=== PATIENT | female | born 1980 | race Caucasian/White ===

== ENCOUNTER → 2022-07-09 12:36 | Outpatient (CLI) | payer OTHER, SELFPAY ==
--- NOTE | ~2022-07-09 | MR_ITS ---
MRI of the right lower extremity CLINICAL HISTORY: Soft tissue mass distal right leg TECHNIQUE: Axial T1 weighted, T1 fat-sat, STIR images, coronal T1-weighted and STIR images, and sagit ankita T1-weighted and STIR images were performed. Sagittal proton-density images, and axial and coronal proton-density fat-sat images were performed at the ankle region. Following intravenous administrati on of 15 cc MultiHance gadolinium, T1-weighted fat-sat imaging was performed in the axial, coronal, a nd sagittal planes. FINDINGS: Bone marrow signals are unremarkable. No fracture, bone marrow edema, or periosteal reactio n. No evidence for osteomyelitis. Visualized joint spaces are grossly intact. Visualized musculature demonstrates normal signal intensity. No muscle atrophy or edema identified. V isualized tendons are intact. There is a 1.0 x 0.8 x 1.3 cm cystic mass, without postcontrast enhancement, along the anterior isai n of the distal tibiofibular syndesmotic region, approximately 4 cm proximal to the distal tip of the lateral malleolus (series 12 image 16, series 13 image 11). This is most compatible with a ganglion cyst. No other soft tissue mass or fluid collection seen. IMPRESSION: 1.0 x 0.8 x 1.3 cm ganglion cyst along the anterior margin of the distal tibiofibular syndesmotic reg ion, as detailed above. Reviewed, dictated and finalized at [facility]. NGUAL RESEARCH INTERVIEWER IMPRESSION: 1.0 x 0.8 x 1.3 cm ganglion cyst along the anterior margin of the distal tibiof ibular syndesmotic region, as detailed above.
== END ==
PROVIDERS: PCP Family Medicine; Visit Provider Podiatrist Foot & Ankle Surgery
DX: R22.41 Localized swelling, mass and lump, right lower limb (principal); M67.461 Ganglion, right knee
CPT/HCPCS: 73720; A9577

== ENCOUNTER → 2022-10-26 10:57 | Outpatient (CLI) | payer OTHER, SELFPAY ==
--- NOTE | ~2022-10-26 | XR_ITS ---
AP view of the pelvis and AP and lateral views of the left hip Clinical history: Pain Findings: No acute fracture or dislocation is seen. Osseous alignment is anatomic. Bilateral hip and SI joint spaces are preserved. Soft tissues are unremarkable. Impression: No significant abnormality is seen. Reviewed, dictated and finalized at [facility]. Impression: No significant abnormality is seen.
== END ==
PROVIDERS: PCP Family Medicine; Visit Provider Nurse Practitioner Family
DX: M25.552 Pain in left hip (principal)
CPT/HCPCS: 73502

== ENCOUNTER 2024-07-31 00:07 | Day surgery (SDC) | payer OTHER, SELFPAY ==
[2024-07-21 15:43] VITALS: BMI 27.4
--- NOTE | 2024-07-21 16:11 | PC.NURSE ---
Report to the Outpatient Waiting Room, entrance under the green pavilion located off [facility], at 0730 on 07-31-24. Planned Procedure Time: 0930.? Time changes happen often and if your time is changed the preop area will call you the afternoon before. - You and your visitor will be asked to self-screen and do not enter if you have any COVID symptoms. Please call surgeon if you need to reschedule. - A mask is optional within the hospital at this time. Patients may have clear liquids (water, carbonated beverages, clear teas, apple juice) until 3 hours prior to surgery with a maximum of 20 ounces. 0630 - No food from midnight until time of surgery and no smoking, or chewing tobacco (or any form of nicotine). No chewing gum, candy or mints. - Infants may have breast milk until 4 hours before surgery, formula 6 hours prior to surgery. - Children will be allowed to drink immediately following surgery.? If applicable, please bring a bottle or sippy cup to assist with drinking. Juice, water, soda, and popsicles are readily available.? For infants on formula, please bring formula the day of surgery.? Pacifiers are allowed. Take only the following medications with a SIP of water on the morning of surgery: Tylenol if needed Bring inhaler to hospital DOS DO NOT STOP ANY OF YOUR OTHER PRESCRIPTION MEDICATIONS PRIOR TO SURGERY EXCEPT THE FOLLOWING Hold all vitamins and supplements for 3 days per anesthesiologist. Medications to discontinue per physician: Vitamins and supplements Date to take last dose: 07-28-24 Please no make-up, nail danish, hairspray, perfume, deodorant, or body powder the day of surgery.? No jewelry (including any body piercings) or valuables the day of surgery, leave them at home.? Please take a shower or bath the night before, or the morning of, surgery with an antibacterial soap.? Wear comfortable, loose fitting clothing.? Children are encouraged to wear pajamas. - Jewelry must be removed prior to entering the operating room.? Rings and piercings that are not removed may be cut off. - The hospital will not accept responsibility for valuables.? - Please leave all valuables, including medications, at home the day of surgery. If you are going home after surgery, a licensed mule driver must drive you home.? - NO public transportation without another adult if you receive anesthesia. - We recommend that an adult stay with you for 24 hours following discharge. - We also recommend that you do not drive, make important decision, drink alcoholic beverages, or take any drugs that were not prescribed by your health care provider for at least 24 hours after your discharge time. For Pediatric surgeries, we recommend two adults accompany the child home. Follow any additional instructions given to you from your surgeon. Telephone instructions given to Vera Escobedo and asked if any additional questions and then verbalized understanding. Patient advised to call surgeon office or pre surgery nurse liaison [phone] if any additional questions.
--- OUTSIDE RECORDS SUMMARY | 2024-07-31 00:10 | XMS_ITS ---
Author Organization [facility] Address [address] [facility] [address] [place] [address] Care Team Providers Care Service Desk Agent Name Role Phone Travis ROONEY, Armando Primary Care Provider Shekhar Beach Unavailable [phone] REASON FOR VISIT Nausea and Vomiting 5ft6 173 Encounters Encounter Location Date Provider Diagnosis [facility] [address] [place] [address] 02/12/2024 Shekhar Anguiano Plan Of Treatment No Information Progress Notes * Vera GALEAS LDOB: 1980 (43 yo F)Acc No.[id number]:02/12/2024 Patient: Vera PEARCE Provider: Elvin Anguiano D.O. :1980 A ge:43 Y S ex:Female Date:02/12/2024 Address:[address] [facility] Pcp:Armando Robles MD Subjective: * Chief Complaints: * 1 . Nausea and Vomiting 5ft6 173. * Medical History: Objective: * Vitals: Assessment: Plan: * Treatment: * Images: * Electronic signature of Vicente Anguiano DO on 07/31/2024 at 12:10 AM CDT Sign off status: Pending * Provider: Elvin Anguiano D.O. Date: 0 02/12/2024 Generated for Veronica torres/Dong/Trinityitting on: 0 07/31/2024 12:10 AM CDT
--- OUTSIDE RECORDS SUMMARY | 2024-07-31 00:10 | XMS_ITS | Encounter Summary ---
Author Organization [facility] Address 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 MEDICATIONS: Medication list current. CHIEF COMPLAINT Seen as a new patient to get established with the practice. has arthritis pain and stiffness with fatigue -has had positive ra factor in the past - HISTORY: 26 yo with complicated pmh, including asthma / anemia / IBS, Kidney Stones, Fibromyalgia, Mitral Valve prolapse. The patient wasn't too pleased with previous primary care physician. Has seenthe previous doctor for about 15 years. 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 The patient is seeking additional primary care because she was made uncomfortable by her previous doctor. HISTORY: 729.1-FIBROMYALGIA The patient's myalgia remains stable. Currently the patient is off all medication. No recent laboratory work done. the patient has also been having a lot of weakness. doesn't have much strength in her arms. joints will lock up at times, such as when she's having sexual activity. Washing the plate sometimes makes her hands throb and ache and her wrists will freeze up. Taking tramadol for now, 50 mg as needed. Has taken Elavil in the past, which no longer works. The patient is interested in learning about lyrica, and she worries about the effects of being on those medications. 477.9-RHINITIS ALLERGIC UNSPECIFIED The allergic rhinitis symptoms are stable. The patient denies sneezing, rhinorrhea, coryza, and watery eyes. Currently the patient is off all medication. 493.90-ASTHMA UNSPECIFIED The asthma is stable. The patient denies shortness of breath, cough, wheezing and reduced exercise tolerance. Currently the patient is off all medication. 424.0-MITRAL VALVE PROLAPSE occasional chest pain and palpitations, but these are stable. CURRENT MEDICATION LIST: ADVAIR DISKUS INHALATION MISCELLANEOUS 250-50 MCG/DOSE, bid SINGULAIR ORAL TABLET 10 MG, qd ZYRTEC ORAL TABLET 10 MG, qd NASONEX NASAL SUSPENSION 50 MCG/ACT, once daily TRAMADOL HCL ORAL TABLET 50 MG, up to three daily as needed BENTYL ORAL SYRUP 10 MG/5ML, qd ALBUTEROL SULFATE ORAL TABLET 4 MG, qd prn ROS: Has Fibromyalgia / Weakness, Sinus congestion, occasional chest pain and palpitations, IBS symptoms GENERAL: Normal activity and energy level, no change in appetite. No major weight gain or loss. No malaise, chills, fever, diaphoresis.. ENT: No hearing loss, epistaxis, hoarseness or dysphagia. No sinus congestion.. ENDOCRINE: No heat or cold intolerance, no excessive thirst.. CARDIAC: No chest pain, palpitations, orthopnea, dyspnea on exertion, or paroxysmal nocturnal dyspnea.. RESPIRATORY: No dyspnea, cough, hemoptysis or wheezing.. : No frequency, urgency, hematuria or dysuria.. GI: No abdominal pain, nausea, vomiting, diarrhea, constipation, melena, or hematochezia.. PAST MEDICAL HISTORY: Asthma / Allergies / Sinus Surgery, Endometriosis surgery x 2, Pneumonia requiring hospitalization. FAMILY HISTORY: Father with HTN, DM, CAD. Mother has MVP, Thyroid problems. Dementia also runs in the family. SOCIAL HISTORY: MARITAL HISTORY: detention relationship 1 year. 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 TOBACCO USE: Has no significant smoking history. ALCOHOL: Does not give any significant history of alcohol usage. PHYSICAL EXAMINATION: CONSTITUTIONAL: GENERAL APPEARANCE: Healthy appearing patient in no distress. NECK/THYROID: Trachea midline. No thyroid enlargement, tenderness, or mass. No supraclavicular or cervical adenopathy. RESPIRATORY: Clear to auscultation and percussion. Normal respiratory effort. CARDIOVASCULAR: CARDIAC: Regular rhythm. No murmurs, rubs, or gallops. ARTERIAL: No aortic bruits. EDEMA/VARICOSITIES OF EXTREMITIES: No edema or varicosities. GASTROINTESTINAL: ABDOMEN: Soft, non-tender, without masses. Bowel sounds active. LIVER/SPLEEN/KIDNEY: No hepatosplenomegaly, tenderness or nodularity. Kidneys not palpable. ASSESSMENT/PLAN: 729.1-FIBROMYALGIA ASSESSMENT: The patient's myalgia stable. Will not change medication, continue to monitor for complications. Will check laboratory. MEDICATIONS: LYRICA ORAL CAPSULE CONVENTIONAL 75 MG, One PO BID (start one po qday x 1 week), 60 Dispensed, 3 Fills, status: NEW PRESCRIPTION, 06/10/2007. 477.9-RHINITIS ALLERGIC UNSPECIFIED ASSESSMENT: The patient's allergic rhinitis continues to remain stable. Will not change medication,continue to monitor for complications. No laboratory work is necessary at this time. 493.90-ASTHMA UNSPECIFIED ASSESSMENT: The asthma has improved. The patient denies shortness of breath, cough, wheezing and reduced exercise tolerance. Currently the patient is off all medication. No recent laboratory work done. PATIENT INSTRUCTIONS. 424.0-MITRAL VALVE PROLAPSE ASSESSMENT: stable for now. occasional chest pain. V70.0-ROUTINE GENERAL MEDICAL EXAMINATION V77.91-SCREENING FOR LIPID DISORDERS ASSESSMENT: LAB ORDERS: Order number: [id number] Test Ordered: HEPATIC FUNCTION PANEL 1293 Order number: [id number] Test Ordered: LIPID PANEL 1078 HEALTH MAINTENANCE: DISCUSSED SMOKING: none. LAST TD: 2004 SUBSTANCE ABUSE DISCUSSED: none. INJURY PREVENTION DISCUSSED: yes. DIET AND EXERCISE DISCUSSED: yes. ( arobic) DIABETIC EYE EXAM: 2006. Electronically Signed by: Shekhar Victoria MD on Sunday, June 10, 2007 documented in this encounter Plan of Treatment Not on file documented as of this encounter Visit Diagnoses Not on filedocumented in this encounter Care Teams Composite Laminator Relationship Specialty Start Date End Date Shekhar Victoria MD PCP - General 10/15/07 06/12/18 documented as of this encounter
--- OUTSIDE RECORDS SUMMARY | 2024-07-31 00:10 | XMS_ITS | Encounter Summary ---
Author Organization [employer] Address 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
--- OUTSIDE RECORDS SUMMARY | 2024-07-31 00:10 | XMS_ITS | Encounter Summary ---
Author Organization Address [address] [place] [address] Care Team Providers Care Loss Prevention Research Engineer Name Role Phone Shekhar Victoria MD Primary Care Provider [phone] Encounter Details Date Type Department Care Team (Late st Contact Info) Description 06/10/2007 Outpatient Historical [facility] Internal Medicine - [place] [address] [place] [address] [place] [address] [facility] [address] [place] [address] Social History Tobacco Use Types Packs/Day Years Used Date Smoking Tobacco: Never Assessed Comments Unknown Sex and Gender Information Value Date Recorded Sex Assigned at Not on file 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
--- OUTSIDE RECORDS SUMMARY | 2024-07-31 00:10 | XMS_ITS | Clinical Summary ---
Author Organization [facility] Address [address] [place] [address] Care Team Providers Care Neonatal Doctor Name Role Phone Unavailable Primary Care Provider Unavailabl e Immunizations Immunization Administration Dates Next Due Covid-19, Mrna, Lnp-s, Pf, 30 Mcg/0.3 Ml Dose (Bernice ricketts) 02/18/2021 Social History Tobacco Use Types Packs/Day Years Used Date Smoking Tobacco: Never Assessed Comments Unknown Sex and Gender Information Value Date Recorded Sex Assigned at Not on file Legal Sex Female 11:52 AM CDT Gender Identity Not on file Sexual Orientation Not on file Plan of Treatment Health Maintenance Due Date Last Done Comments Hepatitis C Virus (HCV) Screening 1978 Mammogram 1978 TdaP Immunization 1978 Hepatitis B Immunization (1 of 3 - 19+ 3-dose series) 1997 Pap Smear 10/25/1999 Cervical Cancer Screening (CCS) 2008 HPV/Cotest 2008 Discussion re Starting/Frequency of Mammograms 2018 Colonoscopy 10/25/2023 Colorectal Cancer Screening 10/25/2023 Influenza Immunization (#1) 2024 SARS-COV-2 Immunization (2023- season) 2024 02/18/2021, 07/30/2020, 07/09/2020 Respiratory Syncytial Virus (RSV) Immunization (Adult) (1 - 1-dose 75+ series) 2053 Meningococcal Immunization (ACWY) Aged Out No longer eligible b ased on patient's age to complete this topic Pneumococcal Immunization Combined Aged Out No longer eligible b ased on patient's age to complete this topic Rotavirus Immunization Aged Out No lo nger eligible based on patient's age to complete this topic
--- OUTSIDE RECORDS SUMMARY | 2024-07-31 00:10 | XMS_ITS | Encounter Summary ---
Author Organization [facility] Address [address] [place] [address] Care Team Providers Care Government Clerk Name Role Phone Shekhar Victoria MD Primary Care Provider [phone] Encounter Details Date Type Department Care Team (Late st Contact Info) Description 06/10/2007 Outpatient Historical [facility] Internal Medicine - [place] [address] [place] [address] [place] [address] [facility] [address] [place] [address] Social History Tobacco Use Types Packs/Day Years Used Date Smoking Tobacco: Never Assessed Comments Unknown Sex and Gender Information Value Date Recorded Sex Assigned at Not on file 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
--- OUTSIDE RECORDS SUMMARY | 2024-07-31 00:10 | XMS_ITS | Encounter Summary ---
Author Organization [employer] Address 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
--- OUTSIDE RECORDS SUMMARY | 2024-07-31 00:10 | XMS_ITS | Patient Health Record ---
Author Organization [facility] [employer] [facility] Address [address] [place], [place] [address] Care Team Providers Care Alumni Secretary Name Role Phone Saniya Doe Unavailable [phone] ALLERGIES Allergen (clinical drug ingredient) Drug/Non Drug Allergy documented on EMR Reaction Allergy Type Onset Date Status Darvocet A500 Unknown Drug Allergy Act millie Percocet 7.5/325 Unknown Drug Allergy Active sulfa (uncoded) Unknown Allergy Acti ve REASON FOR REFERRAL No Information MEDICATIONS Medication SIG (Take, Route, Frequency, Duration) Notes Start Date End Date Status Singulair 10 mg 1 tab(s) orally once a day (in the evening) Active ZyrTEC Active Nasonex 50 mcg/inh 2 spray(s) intranasa lly once a day Active Advair Diskus 250 mcg-50 mcg 1 puff(s) inhaled 2 times a day Active Z- MIN 250 MG DIRECTED ORALLY D AILY for 5DAY 11/25/2017 Not-Taking traMADol 50 mg 1 tab orally tid prn Active Lyrica 150 mg 1 cap(s) orally once a day for 90 days Active albuterol 5 mg/mL 1 mL inhaled every 6 hours Active Paxil 30 mg 1 tab(s) orally once a day Active SOCIAL HISTORY Tobacco Use: Social History Observation Description Date Details (start date - stop date) Never Smoker NA - NA Sex Assigned At : Social History Observation Description Sex Assigned At Unknown Tobacco Use: Question Answer Notes Smoking Status nonsmoker PROBLEMS Problem Type ICD Code Onset Dates Problem Status W/U Status Risk SNOMED Code Notes Problem Other residential (current) drug therapy (Z79.899) Active confirmed 324880639 Problem Fibromyalgia (M79.7) Active confirmed 05043260 Problem Myalgia (M79.1) Active confirmed 137857 01 Problem Hematuria (R31.9) Active confirmed 3443 6003 Problem Fatigue (R53.83) Active confirmed 50420 001 Problem Degenerative disc disease, thoracic (M51.34) Active confirmed 72919758 Problem Paresthesia (R20.2) Active confirmed 49750062 Problem Small fiber neuropathy (G62.9) Active confirmed 986925611 PLAN OF TREATMENT Pending Test Test Name Order Date PT Evaluate and treat 03/22/2017 Insurance Providers Payer Name Payer Address Payer Phone Subscriber Number Group Number Insured Name Patient Relationship to Insured Coverage Start Date Coverage End Date [employer] PPO - NR [id number] [place] [address] [id number] Emilee Escobedo Spouse - patient is the spouse of the insured 8 MEDICAL (GENERAL) HISTORY Medical History History ICD Code bruises easily change in moles migraine headache sinus problems dizziness swollen glands in neck anemia chest pain high blood pressure asthma heart murmur irritable bowel syndrome ulcers Kidney stones anxiety depression OCD Surgical History Surgery Date(Month/Year) Sinus surgery 1996 endometriosis lap wisdom tooth 2007 labial cyst extraction 2007 myomectomy (ovarian mass) 2011
--- OUTSIDE RECORDS SUMMARY | 2024-07-31 00:10 | XMS_ITS | Encounter Summary ---
Author Organization [facility] Address [address] [place] [address] Care Team Providers Care Analytics Associate Name Role Phone Shekhar Victoria MD Primary Care Provider [phone] Encounter Details Date Type Department Care Team (Latest Contact Info) Description 07/02/2007 Outpatient Historical [facility] Internal Medicine - [place] [address] [place] [address] [place] [address] [facility] [address] [place] [address] Unspecified Myalgia and Myositis Social History Tobacco Use Types Packs/Day Years Used Date Smoking Tobacco: Never Assessed Comments Unknown Sex and Gender Information Value Date Recorded Sex Assigned at Not on file Legal Sex Female 4:51 AM OPERATIONS OFFICER AFLOAT Gender Identity Not on file Sexual Orientation Not on file documented as of this encounter Plan of Treatment Not on file documented as of this encounter Procedures Procedure Name Priority Date/Time Associated Diagnosis Comments LIPID PANEL Routine 07/02/2007 4:03 PM OPERATIONS OFFICER AFLOAT COMPREHENSIVE METABOLIC PANEL Routine 07/02/2007 4:03 PM OPERATIONS OFFICER AFLOAT documented in this encounter Results * (ABNORMAL) COMPREHENSIVE METABOLIC PANEL (07/02/2007 4:03 PM OPERATIONS OFFICER AFLOAT) TOTAL PROTEIN 8.2 6.3 - 8.6 g/dL [facility] CO2 23 22 - 30 mmol/L [facility] GLUCOSE 59(L) 65 - 99 mg/dL [facility] AST 19 12 - 32 U/L [facility] BUN 12 6 - 20 mg/dL [facility] CALCIUM 8.8 8.4 - 10.2 mg/dL [facility] POTASSIUM 3.7 3.5 - 4.9 mmol/L [facility] ALBUMIN 4.5 3.4 - 4.8 g/dL [facility] CREATININE 0.67 0.51 - 0.95 mg/dL [facility] SODIUM 140 135 - 145 mmol/L [facility] ALT 7 0 - 31 U/L [facility] CHLORIDE 102 96 - 108 mmol/L [facility] ALKALINE PHOSPHATASE 99 35 - 104 U/L [facility] BILIRUBIN TOTAL 0.2 0.2 - 1.0 mg/dL [facility] GFR, >60 >=60 mL/min/1.7 sq meter [facility] GFR >60 >=60 mL/min/1.7 sq meter [facility] Comment: ansiEstimated GFR rate interpretative information for both Americans and non- Americans is available on the [facility] Intranet at: http://[facility] samaritanKingdom Scene Endeavorsballad health/unity/sjmmclab.nsf Select: Lab Policies and Procedures Select: Reference Ranges - GFR Blood specimen (specimen) 07/02/2007 4:03 PM OPERATIONS OFFICER AFLOAT 07/02/2007 4:03 PM OPERATIONS OFFICER AFLOAT Shekhar Victoria MD CHEMISTRY ORDERABLES Edited [facility] [address] [place] [address] * (ABNORMAL) LIPID PANEL (07/02/2007 4:03 PM OPERATIONS OFFICER AFLOAT) TRIGLYCERIDE 56 10 - 149 mg/dL [facility] HDL 71(H) 40 - 59 mg/dL [facility] CHOLESTEROL 167 100 - 199 mg/dL [facility] CHOL/HDL RATIO 2.4 2.0 - 5.0 N [facility] LDL CALCULATED 85 <=99 mg/dL [facility] LIPID PANEL COMMENT See Below N [facility] Comment: The adult ATP and pediatric NCEP classifications for lipids are available on the [facility] Intranet at: http://house of the good samaritanFTRANSet/WalkHub/sjmmclab.nsf Select: Lab Policies and Procedures,Current Select: Lipid Panel Interpretation Blood specimen (specimen) 07/02/2007 4:03 PM OPERATIONS OFFICER AFLOAT 07/02/2007 4:03 PM OPERATIONS OFFICER AFLOAT Shekhar Victoria MD CHEMISTRY ORDERABLES Edited [facility] [address] [facility] [place] [address] documented in this encounter Visit Diagnoses Diagnosis Myalgia and myositis, unspecified Mylagia and myositis, unspecified documented in this encounter Care Teams Analytics Associate Relationship Specialty Start Date End Date Shekhar Victoria MD PCP - General 10/15/07 06/12/18 documented as of this encounter
--- OUTSIDE RECORDS SUMMARY | 2024-07-31 00:10 | XMS_ITS ---
Author Organization [employer] Address [address] [place] [address] Care Team Providers Care Rib Bender Name Role Phone Travis ROONEY, Armando Primary Care Provider Shekhar Beach Unavailable [phone] REASON FOR VISIT Screen/Phxcp 5ft6 173 Encounters Encounter Location Date Provider Diagnosis [facility] [address] [place] [address] 03/02/2024 Shekhar Anguiano Colon cancer screeni ng Z12.11 and History of adenomatous polyp of colon Z86.0101 Assessments Encounter Date Diagnosis (ICD Code) Assessment Notes Treatment Notes Treatment Clinical Notes Section Notes 03/02/2024 Colon cancer screening (ICD-10 - Z12.11) 03/02/2024 History of adenomatous polyp of colon (ICD-10 - Z86.0101) Plan Of Treatment Next Appt Details Follow Up: * Colonoscopy 7 y ear, Reason: Progress Notes * Vera GALEAS LDOB: 1980 (43 yo F)Acc No.[id number]:03/02/2024 Patient: Pelon Vera Amezquita Provider: Elvin Anguiano D.O. :1980 A ge:43 Y S ex:Female Date:03/02/2024 [address] [facility] [place] Pcp:Armando Robles MD Subjective: * Chief Complaints: * S creen/Phxcp 5ft6 173 * Medical History: * Surgical History: * Hospitalization/Major Diagno stic Procedure: * Medications: Objective: Assessment: * Assessment: 1. C olon cancer screening - Z12.11 (Primary) 2 . H istory of adenomatous polyp of colon - Z86.0101 Plan: * Treatment: * Procedure Codes: G 0105 COLOREC CANCR SCR; COLNSCPY HI RISK * Follow Up: * Colonoscopy 7 year * Images: * Sign off status: Completed true * Provider: Elvin Anguiano D.O. Date: 1 Generated for Veronica torres/Dong/Vale on: 0 07/31/2024 12:10 AM CDT
--- OUTSIDE RECORDS SUMMARY | 2024-07-31 00:10 | XMS_ITS | Encounter Summary ---
Author Organization [facility] Address [address] [place] [address] Care Team Providers Care Chemist Enzymes Name Role Phone Shekhar Victoria MD Primary Care Provider [phone] Encounter Details Date Type Department Care Team (Late st Contact Info) Description 07/02/2007 Outpatient Historical [facility] Internal Medicine - [place] [address] [place] [address] Other, [place] NO ADDRESS ON FILE Social History Tobacco Use Types Packs/Day Years Used Date Smoking Tobacco: Never Assessed Comments Unknown Sex and Gender Information Value Date Recorded Sex Assigned at Not on file Legal Sex Female 4:51 AM DIETETIC TECH Gender Identity Not on file Sexual Orientation Not on file documented as of this encounter Plan of Treatment Not on file documented as of this encounter Visit Diagnoses Not on filedocumented in this encounter Care Teams Chemist Enzymes Relationship Specialty Start Date End Date Shekhar Victoria MD PCP - General 10/15/07 06/12/18 documented as of this encounter
--- OUTSIDE RECORDS SUMMARY | 2024-07-31 00:10 | XMS_ITS | Encounter Summary ---
Author Organization [facility] Address [address] [place] [address] Care Team Providers Care Music Specialist Name Role Phone Shekhar Victoria MD Primary Care Provider [phone] Encounter Details Date Type Department Care Team (Late st Contact Info) Description 06/10/2007 Outpatient Historical [facility] Internal Medicine - [place] [address] [place] [address] [place] [address] [facility] [address] [place] [address] Social History Tobacco Use Types Packs/Day Years Used Date Smoking Tobacco: Never Assessed Comments Unknown Sex and Gender Information Value Date Recorded Sex Assigned at Not on file Legal Sex Female 4:51 AM FIELD SEISMOLOGIST Gender Identity Not on file Sexual Orientation Not on file documented as of this encounter Plan of Treatment Not on file documented as of this encounter Visit Diagnoses Not on filedocumented in this encounter Care Teams Music Specialist Relationship Specialty Start Date End Date Shekhar Victoria MD PCP - General 10/15/07 06/12/18 documented as of this encounter
--- OUTSIDE RECORDS SUMMARY | 2024-07-31 00:10 | XMS_ITS | Encounter Summary ---
Author Organization [facility] Address [address] [place] [address] Care Team Providers Care Easement Man Name Role Phone Shekhar Victoria MD Primary Care Provider [phone] Encounter Details Date Type Department Care Team (Late st Contact Info) Description 06/02/2007 Outpatient Historical [facility] Internal Medicine - [place] [address] [place] [address] [place] [address] [facility] [address] [place] [address] Social History Tobacco Use Types Packs/Day Years Used Date Smoking Tobacco: Never Assessed Comments Unknown Sex and Gender Information Value Date Recorded Sex Assigned at Not on file Legal Sex Female 4:51 AM STORYBOARD ARTIST Gender Identity Not on file Sexual Orientation Not on file documented as of this encounter Plan of Treatment Not on file documented as of this encounter Visit Diagnoses Not on filedocumented in this encounter Care Teams Easement Man Relationship Specialty Start Date End Date Shekhar Victoria MD PCP - General 10/15/07 06/12/18 documented as of this encounter
--- OUTSIDE RECORDS SUMMARY | 2024-07-31 00:10 | XMS_ITS | Encounter Summary ---
Author Organization [facility] Address [address] [place] [address] Care Team Providers Care Deburr Operator Name Role Phone Shekhar Victoria MD Primary Care Provider [phone] Encounter Details Date Type Department Care Team (Late st Contact Info) Description 06/10/2007 Outpatient Historical [facility] Internal Medicine - [place] [address] [place] [address] [place] [address] [facility] [address] [place] [address] Social History Tobacco Use Types Packs/Day Years Used Date Smoking Tobacco: Never Assessed Comments Unknown Sex and Gender Information Value Date Recorded Sex Assigned at Not on file Legal Sex Female 4:51 AM FURNITURE BUILDER Gender Identity Not on file Sexual Orientation Not on file documented as of this encounter Plan of Treatment Not on file documented as of this encounter Visit Diagnoses Not on filedocumented in this encounter Care Teams Deburr Operator Relationship Specialty Start Date End Date Shekhar Victoria MD PCP - General 10/15/07 06/12/18 documented as of this encounter
--- OUTSIDE RECORDS SUMMARY | 2024-07-31 00:10 | XMS_ITS | Encounter Summary ---
Author Organization [facility] Address [address] [place] [address] Care Team Providers Care Home Visitor Name Role Phone Shekhar Victoria MD Primary Care Provider [phone] Encounter Details Date Type Department Care Team (Late st Contact Info) Description 07/02/2007 Outpatient Historical [facility] Internal Medicine - [place] [address] [place] [address] [place] [address] [facility] [address] [place] [address] Social History Tobacco Use Types Packs/Day Years Used Date Smoking Tobacco: Never Assessed Comments Unknown Sex and Gender Information Value Date Recorded Sex Assigned at Not on file Legal Sex Female 4:51 AM PROGRAM CONTROL ANALYST Gender Identity Not on file Sexual Orientation Not on file documented as of this encounter Plan of Treatment Not on file documented as of this encounter Visit Diagnoses Not on filedocumented in this encounter Care Teams Home Visitor Relationship Specialty Start Date End Date Shekhar Victoria MD PCP - General 10/15/07 06/12/18 documented as of this encounter
--- OUTSIDE RECORDS SUMMARY | 2024-07-31 00:11 | XMS_ITS | Encounter Summary ---
Author Organization [facility] Address [address] [place] [address] Care Team Providers Care Creative Assistant Name Role Phone Shekhar Victoria MD Primary Care Provider [phone] Encounter Details Date Type Department Care Team (Late st Contact Info) Description 01/11/2004 Outpatient Historical [address] [place] [address] Husam hSea MD Social History Tobacco Use Types Packs/Day Years Used Date Smoking Tobacco: Never Assessed Comments Unknown Sex and Gender Information Value Date Recorded Sex Assigned at Not on file Legal Sex Female 4:51 AM AIRPORT DUTY MANAGER Gender Identity Not on file Sexual Orientation Not on file documented as of this encounter Plan of Treatment Not on file documented as of this encounter Visit Diagnoses Not on filedocumented in this encounter Care Teams Creative Assistant Relationship Specialty Start Date End Date Shekhar Victoria MD PCP - General 10/15/07 06/12/18 documented as of this encounter
--- OUTSIDE RECORDS SUMMARY | 2024-07-31 00:11 | XMS_ITS ---
Author Organization [employer] Address [address] [place] [address] [address] [place] [address] Care Team Providers Care Rib Bender Name Role Phone Travis ROONEY, Armando Primary Care Provider Shekhar Beach Unavailable [phone] Encounters Encounter Location Date Provider Diagnosis [facility], [address] [place] [address] 03/03/2024 Shekhar Anguiano Plan Of Treatment No Information Progress Notes * Vera GALEAS LDOB: 1980 (43 yo F)Acc No.[id number]:03/03/2024 Patient: Pelon leyvaVera Viera :1980 A ge:43 Y S ex:Female Address:[address] [place] [address] * true * Date: Generated for Veronica torres/Dong/eTransmitting on: 0 07/31/2024 12:10 AM CDT
--- OUTSIDE RECORDS SUMMARY | 2024-07-31 00:11 | XMS_ITS | Encounter Summary ---
Author Organization [employer] Address [address] [place] [address] Care Team Providers Care Canvas Goods Maker Name Role Phone Shekhar Victoria MD Primary Care Provider [phone] Encounter Details Date Type Department Care Team (Latest Contact Info) Description 09/19/2002 Outpatient Historical [facility] Rob Horne MD [address] [address] NONSPECIF SKIN ERUPT NEC (Primary Dx) Social History Tobacco Use Types Packs/Day Years Used Date Smoking Tobacco: Never Assessed Comments Unknown Sex and Gender Information Value Date Recorded Sex Assigned at Not on file Legal Sex Female 4:51 AM 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
--- OUTSIDE RECORDS SUMMARY | 2024-07-31 00:11 | XMS_ITS | Patient Health Record ---
Author Organization [facility] Address [address] [facility]. [address] [place] [address] Care Team Providers Care Checker In Name Role Phone Travis ROONEY, Armando Primary Care Provider Unavaila Shekhar Fuentes Unavailable [phone] Tracy Wallace Unavailable [phone] Praveena Elam Unavailable [phone] Allergies Allergen (clinical drug ingredient) Drug/Non Drug Allergy documented on EMR Reaction Allergy Type Onset Date Status Darvocet (uncoded) Unknown Allergy A ctive Tetanus vaccine (uncoded) high fever Allergy Active Fructose Unknown Drug Allergy Active acetaminophen / oxycodone Percocet paranoia Drug Allergy Active Latex rash Drug Allergy Active Substance with sulfonamide structure and antibacterial mechanism of action (substance) Sulfa Antibiotics stomach upset Drug Allergy active Results Component Value Reference Range Notes Pathology Report Reviewed date:02/21/2024 10:31:10 AM Interpretation: Performing Lab: Notes/Report: DIAGNOSES A. Duodenum , Biopsy: -Enteric mucosa with no diagnostic abnormality. -Normal villous architecture; no evidence of Celiac sprue. -Alcian blue/PAS stain to identify gastric foveolar metaplasia and Whipple's disease is negative; no parasites are seen. -Negative for dysplasia and malignancy. B. Gastric , Biopsy: -Gastric antral type mucosa with reactive gastropathy.-Alcian blue/PAS stain is negative for intestinal metaplasia.-Giemsa stain is negative for Helicobacter pylori organisms. Immunohistochemical stain is confirmatory. CLINICAL HISTORY Nausea with vomiting. Gastritis, characterized by erythema. GROSSING DESCRIPTION A. The specimen is received in a Formalin-filled container labeled with the patient's name and designated Duodenum It contains 1 fragment of linda tissue that measures 3x2x1 mm. The specimen was entirely submitted into a single cassette for processing. B. The specimen is received in a Formalin-filled container labeled with the patient's name and designated Gastric It contains 2 fragments of linda tissue that measure 2x1x1 and 4x1x1 mm. The specimen was entirely submitted into a single cassette for processing. MICROSCOPIC DESCRIPTION Complete 100 microscopic examination is performed. The findings are included in the diagnosis rendered. Specimens A and B were evaluated with H&E stain. Specimen B was evaluated with Rapid Giemsa stain. Specimens A and B were evaluated with Alcian Blue PAS stain. Specimen B was evaluated with Helicobacter Pylori immunohistochemistry stain with adequate positive controls. Textual Pathology Report SEE NOTES Reason For Referral Referral Organization [facility], [facility] Referring Provider First Name Shekhar Referring Provider Last Name Silvio Referring Provider [facility] Referred Organization [facility], [facility] Referred Provider Shekhar Anguiano Referred Address [address] [place] [address] [place] [phone], Referred Provider Specialty Gastroentero logy Referral Priority Routine Referral Organization [facility] Referring Provider First Name Shekhar Referring Provider Last Name Silvio Referring Provider [facility] Referred Provider Shekhar Anguiano Referred Address [address] [place] [address],[place], [place],[address] Referred Provider Specialty Gastroentero logy Referral Priority Routine Medications Medication SIG (Take, Route, Frequency, Duration) Notes Start Date End Date Status Na Sulfate-K Sulfate-Mg Sulf 17.5-3.13-1.6 GM/177ML ML Orally Twice a day,Follow Physician Instructions. for 1 days 02/03/2024 Active Dicyclomine HCl 10 MG 1 capsule Orally Four times a day PRN for 30 days Active OTC/Vitamins MVI, Tylenol, Zyrtec, Tums, Nausefe Active Lyrica Active Flonase Active Albuterol Active Advair Diskus Active Paxil Active Tretinoin Active Clindamycin Phosphate Active Social History Tobacco Use: Social History Observation Description Date Details (start date - stop date) Never Smoker NA - NA Tobacco Use/Smoking Question Answer Notes Are you a nonsmoker Problems Problem Type SNOMED Code ICD Code Onset Dates Problem Status W/U Status Risk Notes Problem 042812933 Fibromyalgia (M79.7) Active confirmed She has a histo ry of fibromyalgia, for which she takes Lyrica and tramadol daily. Problem 069681183 Nausea (R11.0) Active confirmed Problem 478051064 History of adenomatous polyp of colon (Z86.010) Active confirmed Her last colonoscopy performed in September 2011 revealed mucosal abnormality in the ileum and a 4 mm polyp removed from the ascending colon. Pathology revealed no evidence of inflammatory bowel disease of the terminal ileum, but polyp was a sessile serrated adenoma. She was instructed to follow-up in 5 years. Problem 684870888 Colon cancer screening (Z12.11) Active confirmed Due for colon cancer screening as it has been 12 years since her last colonoscopy. Problem 44803652 Midepigastric pain (R10.13) Active confirmed She began experiencing mid epigastric pain about 2 months ago. She describes it as a constant dull ache in the midepigastric area that sometimes radiates to the back. She has not noticed any association with food. Her blood work and ultrasound were unremarkable. She has a history of large gastric ulcer seen on upper endoscopy in 2013, for which she was treated with Prevacid and Carafate. Differential diagnosis includes gastritis, esophagitis, GERD, peptic ulcer, nonulcer dyspepsia, gallbladder dysfunction, or others. Problem 37805420 Hemorrhoids (K64.9) Active confirmed She occasionall y has bright red blood on the toilet paper when wiping, which she attributes to hemorrhoids. Problem 750696737 Irritable bowel syndrome with constipation (K58.1) Active confirmed Problem 390509396 Fructose intolerance (E74.10) Active confirmed Patient has reduced fructose in her diet but does continue to consume fruits and vegetables which may be contributing to urgency. She did undergo ano rectal manometry which revealed an abnormal balloon expulsion test but overall no dyssynergia was noted. Problem 20221659 Irritable bowel syndrome (K58.9) Active confirmed Patient has a history of chronic bowel irregularity. She utilizes dicyclomine as needed. Problem 341613226 Pelvic floor dysfunction (M62.89) Active confirmed Problem 506224700 Pain radiating to back (M54.9) Active confirmed Problem 664840589 Globus sensation (R09.A2) Active confirmed Patient reports tightness in her throat at times. Unclear if this is secondary to globus sensation, GERD, Zenker's diverticulum, cricopharyngeal web, or other. Vital Signs Height 66 in 02/03/2024 Weight 173 lbs 02/03/2024 BMI 27.92 kg/m2 02/03/2024 Procedures Procedure Date Ordered Date Performed Result Body Sit e Upper Endoscopy 02/03/2024 N/A Colonoscopy 02/03/2024 N/A Encounters Encounter Location Date Provider Diagnosis [facility], [address] [place] [address] 12/31/2023 Praveena Elam [facility], [address] [place] [address] 02/03/2024 Tracy Madison Nausea & vomiting R11.2 ; Irritable bowel syndrome K58.9 ; Fructose intolerance E74.10 ; Colon cancer screening Z12.11 ; History of adenomatous polyp of colon Z86.010 and Globus sensation R09.A2 [facility] [address] [place] [address] 03/02/2024 Shekhar Anguiano Colon cancer screening Z12.11 and History of adenomatous polyp of colon Z86.0101 [facility], [address] [place] [address] 02/03/2024 Shekhar Anguiano [facility], [address] [place] [address] 02/03/2024 Shekhar Anguiano [facility], [address] [place] [address] 02/03/2024 Shekhar Anguiano [facility] [address] [place] [address] 02/10/2024 Shekhar Anguiano Nausea R11.0 [facility], [address] [place] [address] 03/03/2024 Shekhar Anguiano [facility], [address] Dunn [address] [place] [address] 02/03/2024 Shekhar Anguiano Assessments Encounter Date Diagnosis (ICD Code) Assessment Notes Treatment Notes Treatment Clinical Notes Section Notes 02/03/2024 Nausea & vomiting (ICD-10 - R11.2) Patient has experienced 3 episodes of vomiting over the summer while traveling. She has not experienced any vomiting since November but continues to experience nausea most days of the week in addition to a reduction in her appetite. She does have a history of gastric ulcer and GERD. Her last upper endoscopy took place in 2013 and revealed erythematous mucosa in the antrum. Biopsies were negative for H. pylori, celiac disease, and eosinophilic esophagitis. Differential diagnosis includes GERD, gastritis, peptic ulcer disease, gastroparesis, functional etiology, small bowel process, Cholelithiasis and other. Patient denies recreational drug use. Recommend she take Pepcid 20 mg every morning. Further recommendations pending endoscopic findings. 02/03/2024 Irritable bowel syndrome (ICD-10 - K58.9) Patient has a history of chronic bowel irregularity. She utilizes dicyclomine as needed. Continue with high-fiber diet and dicyclomine as needed. 02/10/2024 Nausea (ICD-10 - R11.0) 03/02/2024 Colon cancer screening (ICD-10 - Z12.11) 03/02/2024 History of adenomatous polyp of colon (ICD-10 - Z86.0101) 02/03/2024 Fructose intolerance (ICD-10 - E74.10) Patient has reduced fructose in her diet but does continue to consume fruits and vegetables which may be contributing to urgency. She did undergo ano rectal manometry which revealed an abnormal balloon expulsion test but overall no dyssynergia was noted. Recommend a fructose restricted diet. Additional resources were provided. 02/03/2024 Colon cancer screening (ICD-10 - Z12.11) Due for colon cancer screening as it has been 12 years since her last colonoscopy. 02/03/2024 History of adenomatous polyp of colon (ICD-10 - Z86.010) Her last colonoscopy performed in September 2011 revealed mucosal abnormality in the ileum and a 4 mm polyp removed from the ascending colon. Pathology revealed no evidence of inflammatory bowel disease of the terminal ileum, but polyp was a sessile serrated adenoma. She was instructed to follow-up in 5 years. 02/03/2024 Globus sensation (ICD-10 - R09.A2) Patient reports tightness in her throat at times. Unclear if this is secondary to globus sensation, GERD, Zenker's diverticulum, cricopharyngeal web, or other. Plan Of Treatment Pending Test Test Name Order Date Upper Endoscopy 02/03/2024 Colonoscopy 02/03/2024 Anorectal Manometry 04/05/2016 Pelvic Floor Therapy 04/18/2016 Insurance Providers Payer Name Payer Address Payer Phone Subscriber Number Group Number Insured Name Patient Relationship to Insured Coverage Start Date Coverage End Date [facility] Choice/ choice Plus E2 [address] [address] [place] [address] [id number] Emilee Escobedo Spouse - patient is the spouse of the insured Medical (General) History Medical History History ICD Code Colon Polyps Remote Peptic Ulcer Disease Irritable Bowel Syndrome GERD Hemorrhoids Anemia Endometriosis Asthma Anxiety ADD Fibromyalgia Migraine Headaches Jolanta-Danlos Small fiber neuropathy Surgical History Surgery Date(Month/Year) EGD 07/2013 Colonoscopy 09/2011 Laparoscopy [place] Teeth Extraction Endometriosis Labial cyst Myomectomy Tonsillectomy Breast Biopsy Sinus Surgery Hysterectomy Right Leg Tendinopathy Hospitalization History Reason Date(Month/Year) Pneumonia
--- OUTSIDE RECORDS SUMMARY | 2024-07-31 00:11 | XMS_ITS | Encounter Summary ---
Author Organization [facility] Address [address] [place] [address] Care Team Providers Care Graphics Intern Name Role Phone Shekhar Victoria MD Primary Care Provider Encounter Details Date Type Department Care Team (Late st Contact Info) Description 02/20/2002 Outpatient Historical [address] 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
--- OUTSIDE RECORDS SUMMARY | 2024-07-31 00:11 | XMS_ITS | Encounter Summary ---
Author Organization [facility] Address [address] [place] [address] Care Team Providers Care Affiliate Marketing Coordinator Name Role Phone Shekhar Victoria MD Primary Care Provider [phone] Encounter Details Date Type Department Care Team (Late st Contact Info) Description 05/15/2004 Outpatient [address] 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
--- OUTSIDE RECORDS SUMMARY | 2024-07-31 00:11 | XMS_ITS | Encounter Summary ---
Author Organization [facility] Address [address] [place] [address] Care Team Providers Care Gas Meter Prover Name Role Phone Shekhar Victoria MD Primary Care Provider [phone] Encounter Details Date Type Department Care Team (Late st Contact Info) Description 07/13/2004 Outpatient Historical [address] 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
--- OUTSIDE RECORDS SUMMARY | 2024-07-31 00:11 | XMS_ITS | Encounter Summary ---
Author Organization [facility] Address [address] [place] [address] Care Team Providers Care Sports Centre Manager Name Role Phone Shekhar Victoria MD Primary Care Provider [phone] Encounter Details Date Type Department Care Team (Late st Contact Info) Description 12/12/2002 Outpatient Historical [address] 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
--- OUTSIDE RECORDS SUMMARY | 2024-07-31 00:11 | XMS_ITS | Encounter Summary ---
Author Organization [facility] Address 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
--- OUTSIDE RECORDS SUMMARY | 2024-07-31 00:11 | XMS_ITS | Encounter Summary ---
Author Organization [facility] Address [address] [place] [address] Care Team Providers Care Senior Policy Advisor Name Role Phone Shekhar Victoria MD Primary Care Provider [phone] Encounter Details Date Type Department Care Team (Late st Contact Info) Description 01/06/1999 Outpatient Historical [address] 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
--- OUTSIDE RECORDS SUMMARY | 2024-07-31 00:11 | XMS_ITS | Encounter Summary ---
Author Organization [facility] Address 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
--- OUTSIDE RECORDS SUMMARY | 2024-07-31 00:11 | XMS_ITS | Encounter Summary ---
Author Organization [facility] Address [address] [place] [address] Care Team Providers Care Retirement Manager Name Role Phone Shekhar Victoria MD Primary Care Provider [phone] Encounter Details Date Type Department Care Team (Late st Contact Info) Description 03/28/2005 Outpatient Historical [address] 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
--- OUTSIDE RECORDS SUMMARY | 2024-07-31 00:11 | XMS_ITS | Encounter Summary ---
Author Organization [facility] Address [address] [place] [address] Care Team Providers Care Hedis Manager Name Role Phone Shekhar Victoria MD Primary Care Provider Encounter Details Date Type Department Care Team (Late st Contact Info) Description 08/11/2002 Outpatient Historical [address] 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
--- OUTSIDE RECORDS SUMMARY | 2024-07-31 00:11 | XMS_ITS | Encounter Summary ---
Author Organization [facility] Address [address] [place] [address] Care Team Providers Care Sporting Goods Sales Associate Name Role Phone Shekhar Victoria MD Primary Care Provider [phone] Encounter Details Date Type Department Care Team (Late st Contact Info) Description 10/11/2003 Outpatient Historical [address] 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
--- OUTSIDE RECORDS SUMMARY | 2024-07-31 00:11 | XMS_ITS | Encounter Summary ---
Author Organization [facility] Address [address] [place] [address] Care Team Providers Care Electric Accounting Machine Operator Name Role Phone Shekhar Victoria MD Primary Care Provider [phone] Encounter Details Date Type Department Care Team (Late st Contact Info) Description 07/21/2002 Outpatient Historical [address] 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
--- OUTSIDE RECORDS SUMMARY | 2024-07-31 00:11 | XMS_ITS | Encounter Summary ---
Author Organization [facility] Address [address] [place] [address] Care Team Providers Care Telephone Solicitor Supervisor Name Role Phone Shekhar Victoria MD Primary Care Provider [phone] Encounter Details Date Type Department Care Team (Late st Contact Info) Description 10/05/2003 Outpatient [address] 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
--- OUTSIDE RECORDS SUMMARY | 2024-07-31 00:11 | XMS_ITS | Encounter Summary ---
Author Organization [employer] Address [address] [place] [address] Care Team Providers Care Division Field Inspector Name Role Phone Shekhar Victoria MD Primary Care Provider [phone] Encounter Details Date Type Department Care Team (Latest Contact Info) Description 07/01/2001 Outpatient [facility] [address] [place] [address] Husam Shea MD BRACHIAL NEURITIS NOS (Primary Dx) Social History Tobacco Use Types Packs/Day Years Used Date Smoking Tobacco: Never Assessed Comments Unknown Sex and Gender Information Value Date Recorded Sex Assigned at Not on file Legal Sex Female 4:51 AM 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
--- OUTSIDE RECORDS SUMMARY | 2024-07-31 00:11 | XMS_ITS | Encounter Summary ---
Author Organization [facility] Address [address] [place] [address] Care Team Providers Care Frame Stripper Name Role Phone Shekhar Victoria MD Primary Care Provider [phone] Encounter Details Date Type Department Care Team (Late st Contact Info) Description 06/20/2001 Outpatient [address] 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
--- OUTSIDE RECORDS SUMMARY | 2024-07-31 00:11 | XMS_ITS | Encounter Summary ---
Author Organization [employer] Address [address] [place] [address] Care Team Providers Care Multicultural Internship Name Role Phone Shekhar Victoria MD Primary Care Provider [phone] Encounter Details Date Type Department Care Team (Latest Contact Info) Description 06/30/2001 Outpatient Historical [facility] Husam Spaulding MD CERVICALGIA (Primary Dx) Social History Tobacco Use Types Packs/Day Years Used Date Smoking Tobacco: Never Assessed Comments Unknown Sex and Gender Information Value Date Recorded Sex Assigned at Not on file Legal Sex Female 4:51 AM TIPPLE TENDER Gender Identity Not on file Sexual Orientation Not on file documented as of this encounter Plan of Treatment Not on file documented as of this encounter Visit Diagnoses Diagnosis Cervicalgia- Primary documented in this encounter Care Teams Multicultural Internship Relationship Specialty Start Date End Date Shekhar Victoria MD PCP - General 10/15/07 06/12/18 documented as of this encounter
--- OUTSIDE RECORDS SUMMARY | 2024-07-31 00:11 | XMS_ITS | Encounter Summary ---
Author Organization [facility] Address [address] 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
--- OUTSIDE RECORDS SUMMARY | 2024-07-31 00:11 | XMS_ITS | Encounter Summary ---
Author Organization [facility] Address [address] [place] [address] Care Team Providers Care Pond Supervisor Name Role Phone Shekhar Victoria MD Primary Care Provider [phone] Encounter Details Date Type Department Care Team (Late st Contact Info) Description 09/27/2001 Outpatient Historical [facility] [address] [place] [address] Alaina Arroyo MD [address] [place] [address] Social History Tobacco Use Types Packs/Day Years Used Date Smoking Tobacco: Never Assessed Comments Unknown Sex and Gender Information Value Date Recorded Sex Assigned at Not on file Legal Sex Female 4:51 AM CAREER SERVICES DIRECTOR Gender Identity Not on file Sexual Orientation Not on file documented as of this encounter Plan of Treatment Not on file documented as of this encounter Visit Diagnoses Not on filedocumented in this encounter Care Teams Pond Supervisor Relationship Specialty Start Date End Date Shekhar Victoria MD PCP - General 10/15/07 06/12/18 documented as of this encounter
--- OUTSIDE RECORDS SUMMARY | 2024-07-31 00:11 | XMS_ITS | Encounter Summary ---
Author Organization [facility] Address [address] [place] [address] Care Team Providers Care Biomedical Photographer Name Role Phone Shekhar Victoria MD Primary Care Provider [phone] Encounter Details Date Type Department Care Team (Late st Contact Info) Description 10/22/2001 Outpatient [address] 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
--- OUTSIDE RECORDS SUMMARY | 2024-07-31 00:11 | XMS_ITS | Encounter Summary ---
Author Organization [facility] Address [address] [place] [address] Care Team Providers Care Forestry Tree Pruner Name Role Phone Shekhar Victoria MD Primary Care Provider [phone] Encounter Details Date Type Department Care Team (Late st Contact Info) Description 05/17/1999 Outpatient Historical [address] 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
--- OUTSIDE RECORDS SUMMARY | 2024-07-31 00:11 | XMS_ITS | Encounter Summary ---
Author Organization [facility] Address [address] [place] [address] Care Team Providers Care Marine Water Tender Name Role Phone Shekhar Victoria MD Primary Care Provider [phone] Encounter Details Date Type Department Care Team (Late st Contact Info) Description 03/26/2005 Outpatient Historical [facility] Husam Chan MD [address] [place] [address] Er, Authorized P NO ADDRESS ON FILE ABDOMINAL PAIN UNSPEC SITE (Primary Dx) Social History Tobacco Use Types Packs/Day Years Used Date Smoking Tobacco: Never Assessed Comments Unknown Sex and Gender Information Value Date Recorded Sex Assigned at Not on file Legal Sex Female 4:51 AM DISTRICT REPRESENTATIVE Gender Identity Not on file Sexual Orientation Not on file documented as of this encounter Plan of Treatment Not on file documented as of this encounter Procedures Procedure Name Priority Date/Time Associated Diagnosis Comments CBC WITH DIFFERENTIAL Routine 03/26/2005 3:35 PM DISTRICT REPRESENTATIVE CBC WITH DIFFERENTIAL Routine 03/26/2005 3:35 PM DISTRICT REPRESENTATIVE C-REACTIVE PROTEIN Routine 03/26/2005 3: 35 PM DISTRICT REPRESENTATIVE documented in this encounter Results * CBC WITH DIFFERENTIAL (03/26/2005 3:35 PM DISTRICT REPRESENTATIVE) NEUTROPHILS 62 45 - 70 % INTERFAC E SYSTEM LYMPHOCYTES 26 16 - 45 % INTERFAC E SYSTEM MONOCYTES 7 3 - 13 % INTERFACE SYSTEM EOSINOPHILS 5 0 - 7 % INTERFAC E SYSTEM BASOPHILS 0 0 - 2 % INTERFACE SYSTEM NEUTROPHIL ABSOLUTE 5.16 1.90 - 7.00 K/uL INTERFACE SYSTEM LYMPHOCYTE ABSOLUTE 2.17 0.70 - 4.50 K/uL INTERFACE SYSTEM MONOCYTE ABSOLUTE 0.54 0.10 - 1.30 K/uL INTERFACE SYSTEM EOSINOPHIL ABSOLUTE 0.42 0.00 - 0.70 K/uL INTERFACE SYSTEM BASOPHILS ABSOLUTE 0.02 0.00 - 0.20 K/uL INTERFACE SYSTEM 03/26/2005 3:35 PM DISTRICT REPRESENTATIVE Husam Chan MD HEMATOLOGY ORDERABLES Final Re sult Performing Organization Address City/[facility] de Phone Number INTERFACE SYSTEM Refer to clinic/hospital department * (ABNORMAL) CBC WITH DIFFERENTIAL (03/26/2005 3:35 PM DISTRICT REPRESENTATIVE) WBC 8.3 4.0 - 9.8 K/uL INTERFACE SYSTEM RBC 4.70 3.90 - 4.90 M/uL INTERFACE SYSTEM HEMOGLOBIN 12.3 11.8 - 14.8 g/dL INTERFACE SYSTEM HEMATOCRIT 37.3 35.5 - 44.0 % INTERFACE SYSTEM MCV 79.4(L) 82.0 - 99.0 fL INTERFACE SYSTEM MCH 26.2(L) 27.2 - 32.6 pg INTERFACE SYSTEM MCHC 33.0 31.5 - 35.5 % INTERFACE SYSTEM RDW 14.1 11.5 - 14.5 % INTERFACE SYSTEM RDW-STDEV 39.8 37.1 - 48.7 fL INTERFACE SYSTEM PLATELETS 257 140 - 350 K/uL INTERFACE SYSTEM MPV 9.3 9.3 - 12.4 fL INTERFACE SYSTEM 03/26/2005 3:35 PM DISTRICT REPRESENTATIVE Husam Chan MD HEMATOLOGY ORDERABLES Final Re sult Performing Organization Address City/[facility] de Phone Number INTERFACE SYSTEM Refer to clinic/hospital department * C-REACTIVE PROTEIN (03/26/2005 3:35 PM DISTRICT REPRESENTATIVE) CRP <0.5 0.0 - 0.8 mg/dL INTERFACE SYSTEM 03/26/2005 3:35 PM DISTRICT REPRESENTATIVE us Husam Chan MD CHEMISTRY ORDERABLES Final Res ult INTERFACE SYSTEM Refer to clinic/hospital department documented in this encounter Visit Diagnoses Diagnosis Abdominal pain, unspecified site- Primary documented in this encounter Care Teams Marine Water Tender Relationship Specialty Start Date End Date Esme, Shekhar Shields MD PCP - General 10/15/07 06/12/18 documented as of this encounter
--- OUTSIDE RECORDS SUMMARY | 2024-07-31 00:11 | XMS_ITS | Encounter Summary ---
Author Organization [employer] Address [address] [place] [address] Care Team Providers Care Rn Hemodialysis Charge Name Role Phone Shekhar Victoria MD Primary Care Provider [phone] Encounter Details Date Type Department Care Team (Late st Contact Info) Description 07/27/2004 Outpatient Historical [facility] David Porras MD [address] [place] [address] ABDOMINAL PAIN UNSPEC SITE (Primary Dx) Social History Tobacco Use Types Packs/Day Years Used Date Smoking Tobacco: Never Assessed Comments Unknown Sex and Gender Information Value Date Recorded Sex Assigned at Not on file Legal Sex Female 4:51 AM MILL HAND PLATE MILL Gender Identity Not on file Sexual Orientation Not on file documented as of this encounter Plan of Treatment Not on file documented as of this encounter Visit Diagnoses Diagnosis Abdominal pain, unspecified site- Primary documented in this encounter Care Teams Rn Hemodialysis Charge Relationship Specialty Start Date End Date Shekhar Victoria MD PCP - General 10/15/07 06/12/18 documented as of this encounter
--- OUTSIDE RECORDS SUMMARY | 2024-07-31 00:11 | XMS_ITS | Encounter Summary ---
Author Organization [facility] Address [address] [place] [address] Care Team Providers Care Ventilation Equipment Tender Name Role Phone Shekhar Victoria MD Primary Care Provider [phone] Encounter Details Date Type Department Care Team (Late st Contact Info) Description 07/24/1999 Outpatient Historical [address] 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
--- OUTSIDE RECORDS SUMMARY | 2024-07-31 00:12 | XMS_ITS | Encounter Summary ---
Author Organization [employer] Address [address] [place] [address] Care Team Providers Care Surveillance Manager Name Role Phone Shekhar Victoria MD Primary Care Provider [phone] Encounter Details Date Type Department Care Team (Latest Contact Info) Description 03/29/2001 Outpatient Historical [facility] Mimi Allison MD NO ADDRESS ON FILE PELV PERIT ENDOMETRIOSIS (Primary Dx) Social History Tobacco Use Types Packs/Day Years Used Date Smoking Tobacco: Never Assessed Comments Unknown Sex and Gender Information Value Date Recorded Sex Assigned at Not on file Legal Sex Female 4:51 AM CLOTHING CONSULTANT Gender Identity Not on file Sexual Orientation Not on file documented as of this encounter Plan of Treatment Not on file documented as of this encounter Visit Diagnoses Diagnosis Endometriosis of pelvic peritoneum- Primary documented in this encounter Care Teams Surveillance Manager Relationship Specialty Start Date End Date Shekhar Victoria MD PCP - General 10/15/07 06/12/18 documented as of this encounter
--- OUTSIDE RECORDS SUMMARY | 2024-07-31 00:12 | XMS_ITS | Encounter Summary ---
Author Organization [facility] Address [address] [place] [address] Care Team Providers Care Direct Care Worker Name Role Phone Shekhar Victoria MD Primary Care Provider [phone] Encounter Details Date Type Department Care Team (Late st Contact Info) Description 07/17/2007 Outpatient Historical [facility] [place] [address] [place] [address] [place] [address] [facility] [address] [place] [address] Social History Tobacco Use Types Packs/Day Years Used Date Smoking Tobacco: Never Assessed Comments Unknown Sex and Gender Information Value Date Recorded Sex Assigned at Not on file Legal Sex Female 4:51 AM JEWEL BEARING POLISHER Gender Identity Not on file Sexual Orientation Not on file documented as of this encounter Plan of Treatment Not on file documented as of this encounter Visit Diagnoses Not on filedocumented in this encounter Care Teams Direct Care Worker Relationship Specialty Start Date End Date Shekhar Victoria MD PCP - General 10/15/07 06/12/18 documented as of this encounter
--- OUTSIDE RECORDS SUMMARY | 2024-07-31 00:12 | XMS_ITS | Encounter Summary ---
Author Organization [employer] Address [address] [place] [address] Care Team Providers Care Technical Data Analyst Name Role Phone Shekhar Victoria MD Primary Care Provider [phone] Encounter Details Date Type Department Care Team (Late st Contact Info) Description 03/02/2008 Outpatient Historical [facility] Jaime Johnson MD NO ADDRESS ON FILE Social History Tobacco Use Types Packs/Day Years Used Date Smoking Tobacco: Never Assessed Comments No Sex and Gender Information Value Date Recorded Sex Assigned at Not on file Legal Sex Female 4:51 AM CIGARETTE PAPER TESTER Gender Identity Not on file Sexual Orientation Not on file documented as of this encounter Plan of Treatment Not on file documented as of this encounter Procedures Procedure Name Priority Date/Time Associated Diagnosis Comments PATHOLOGY Routine 03/02/2008 12:20 PM CDT POC , URINE Routine 03/02/2008 10:53 AM CDT documented in this encounter Results * PATHOLOGY (03/02/2008 12:20 PM CDT) FINAL REPORT [address] [address] Patient: VERA GALVAN : 1980 Procedure Date: 03/02/2008 Accession Date: 03/02/2008 Case No: [id number] Ordering Dr: YVON JOHNSON Case types AW, BW, FW, NW and SH are [place] [facility] [place] [place] SURGICAL PATHOLOGY & NON-GYNECOLOGIC CYTOPATHOLOGY REPORT DIAGNOSIS STOMACH, ANTRUM, ENDOSCOPIC BIOPSY: - ULCER (SEE DESCRIPTION). Specimen Description: Gastric antrum biopsies. Operative Procedure: EGD. Patient Information/History/Di agnosis: Probable gastric malignancy. Gross: Received in a single container and labeled Vera Galvan, gastric antrum biopsies are eight linda pieces of dark tissue measuring 0.1 to 0.4 cm in greatest dimension. The entire specimen is submitted in cassette A1. LWL/LKP 03.02.2008 03:52 pm Microscopic: Received are slides labeled [id number] Vera Galvan. Sections of gastric antrum identify an ulcer surfaced by an acute inflammatory/fibroid exudate. The ulcer base consists of necrotic tissue and a small amount of granulation tissue, but is not extensively sampled. Intact mucosa consists of antral mucosa. Epithelial atypia that is interpreted as reactive, is present. There is edema of the lamina propria. Scattered neutrophils and chronic inflammatory cells are present in the lamina propria. In some pieces, eosinophils are prominently represented. Dysplasia is not identified. Invasive carcinoma is also not apparent. An immunohistochemical stain for Helicobacter pylori was performed and is interpreted as negative. Note on use of immunocytochemistry reagents: This test was developed and its performance characteristic determined by [facility], Department of Laboratory Medicine. It has not been cleared or approved by the U.S. Food and Drug Administration. The FDA has determined that such clearance or approval is not necessary. The test is used for clinical purpose. It should not be regarded as investigational or for research. This laboratory is certified to perform high complexity clinical testing. A malignancy is not identified in this biopsy material. If clinical suspicion of malignancy persists, rebiopsy after treatment of the ulcer is a consideration. PJC/EDGAR 03.03.2008 10:07 am Staging Form: No. ELECTRONIC SIGNATURE FOR RILEY SHARP M.D.- 03/03/08 04:06 pm INTERFACE SYSTEM 03/02/2008 12:2 0 PM CDT us Jaime Johnson MD PATHOLOGY/CYTOLOGY ORDERABLES Final Result INTERFACE SYSTEM Refer to clinic/hospital department * POC , URINE (03/02/2008 10:53 AM CDT) , URINE POC Negative Negative [facility] Urine specimen (specimen) 03/02/2008 10:53 AM CDT 03/02/2008 10:53 AM CDT us Jaime Johnson MD POINT OF CARE TEST ING Final Result INTERFACE SYSTEM Refer to clinic/hospital department [facility] CLIA# [id number] [address] [place] [address] documented in this encounter Visit Diagnoses Not on filedocumented in this encounter Care Teams Technical Data Analyst Relationship Specialty Start Date End Date Esme, Shekhar Shields MD PCP - General 10/15/07 06/12/18 documented as of this encounter
--- OUTSIDE RECORDS SUMMARY | 2024-07-31 00:12 | XMS_ITS | Referral Summary ---
Author Organization [facility] [employer] Address [address] [facility] [place] [address] Care Team Providers Care Guillotine Operator Name Role Phone Armando Robles MD Primary Care Provider [phone] Source Comments [facility] [employer],non-owned Affiliates and Associated Physician Practices is amultiple site organization consisting of ambulatory clinics and hospital sitesin [place], [place], [place] and [place]. This disclosure is being madepursuant to the Care Everywhere program and may not contain all information available regarding this patient. Last updated 18.[facility] [employer] Allergies Active Allergy Reactions Criticality Noted Date Comments Latex 05/07/2011 rash Oxycodone-Acetaminophen Other Low 08/18/2015 Paranoia and hallucinations Sulfa Drugs 05/07/2011 Tetanus Toxoid Fever 06/12/2018 Medications * Be aware that medications may not be up to date on this document. Alwaysverify current medications with the patient. Medication Sig Dispensed Refills Start Date End Date Status fluticasone-salmete rol (ADVAIR DISKUS) 100-50 MCG/DOSE inhaler as directed 10/12/2017 Active Cetirizine HCl (ZYRTEC PO) once daily Active montelukast (SINGULAIR) 10 MG tablet 10 mg at bedtime 10/12/2017 Active pregabalin (LYRICA) 150 MG capsule Take 150 mg by mouth 2 times daily 11/03/2008 Active traMADol (ULTRAM) 50 MG tablet 50 mg nightly as needed 11/07/2017 Active PARoxetine (PAXIL) 30 MG tablet 30 mg at bedtime 09/12/2017 Active multivitamin (OPURITY) CHEW tablet once daily Active albuterol HFA (PROAIR HFA) 108 (90 BASE) MCG/ACT inhaler as directed 10/12/2017 Active Vitamin D, Ergocalciferol, 2000 UNITS CAPS Take by mouth once daily Active Acetaminophen (TYLENOL ARTHRITIS PAIN PO) Take 1 tablet by mouth once daily as needed Active Omeprazole (PRILOSEC PO) Take by mouth once daily Active Ascorbic Acid (VITAMIN C) 100 MG Take 500 mg by mouth 2 times daily Active ALPHA LIPOIC ACID PO Take by mouth 2 times daily Active niacin CR (SLO-NIACIN) 500 MG tablet Take 500 mg by mouth at bedtime Active cromolyn (NASALCROM) 5.2 MG/ACT nasal spray Fairchance 1 spray into each nostril 4 times daily 1 bottles 1 07/10/2018 Active gabapentin (NEURONTIN) 300 MG capsule Take 1 capsule by mouth 3 times daily 270 capsule 3 08/14/2018 Active Active Problems Problem Noted Date Diagnosed Date Fibromyalgia Anxiety Asthma Hypersomnia, idiopathic Small fiber neuropathy Social History Tobacco Use Types Packs/Day Years Used Date Smoking Tobacco: Never Smokeless Tobacco: Never Alcohol Use Standard Drinks/Week Comments No 0 (1 standard drink = 0.6 oz pur e alcohol) Sex and Gender Information Value Date Recorded Sex Assigned at Not on file Gender Identity Not on file Sexual Orientation Not on file Last Filed Vital Signs Vital Sign Reading Time Taken Comments Blood Pressure 117/85 07/10/2018 12:21 PM EXECUTIVE CONSULTANT Pulse 81 07/10/2018 12:21 PM EXECUTIVE CONSULTANT Temperature 36.4 C (97.6 F) 08/18/2015 12:38 PM CDT Respiratory Rate - - Oxygen Saturation - - Inhaled Oxygen Concentration - - Weight 81.6 kg (180 lb) 07/10/2018 12:21 PM EXECUTIVE CONSULTANT Height 167.6 cm (5' 6 ) 07/10/2018 12:21 PM EXECUTIVE CONSULTANT Body Mass Index 29.05 07/10/2018 12:21 PM EXECUTIVE CONSULTANT Plan of Treatment Not on file Care Teams Guillotine Operator Relationship Specialty Start Date End Date Armando Robles MD [address] [place] [address] PCP - General Family Medicine 07/10/18
--- OUTSIDE RECORDS SUMMARY | 2024-07-31 00:12 | XMS_ITS | Encounter Summary ---
Author Organization [facility] Address [address] [place] [address] Care Team Providers Care Computerized Mill Mill Recorder Name Role Phone Shekhar Victoria MD Primary Care Provider [phone] Encounter Details Date Type Department Care Team (Late st Contact Info) Description 07/14/2007 Orders Only [facility] Internal Medicine - [place] [address] [place] [address] [place] [address] [facility] [address] [place] [address] Social History Tobacco Use Types Packs/Day Years Used Date Smoking Tobacco: Never Assessed Comments Unknown Sex and Gender Information Value Date Recorded Sex Assigned at Not on file 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 CHIEF COMPLAINT fu - fibromyalgia - insurance is requesting - pressure point test for med approval on [employer] HISTORY: 26 yo who has a lot of stiffness. feels like she's on the verge of going into a flare for fibromyalgia. The patient did a lot of work this weekend for a project. was at the computer quite a bit. HISTORY: 477.9-RHINITIS ALLERGIC UNSPECIFIED The allergic rhinitis symptoms are stable. The patient denies sneezing, rhinorrhea, coryza, and watery eyes. Currently the patient is off all medication. 493.90-ASTHMA UNSPECIFIED The patient denies shortness of breath, cough, wheezing and reduced exercise tolerance. The asthma is stable. Currently the patient is off all medication. 729.1-FIBROMYALGIA The patient's myalgia has worsened. Currently the patient is off all medication. CURRENT MEDICATION LIST: ADVAIR DISKUS INHALATION MISCELLANEOUS 250-50 MCG/DOSE, bid SINGULAIR ORAL TABLET 10 MG, qd ZYRTEC ORAL TABLET 10 MG, qd NASONEX NASAL SUSPENSION 50 MCG/ACT, once daily TRAMADOL HCL ORAL TABLET 50 MG, up to three daily as needed BENTYL ORAL SYRUP 10 MG/5ML, qd ALBUTEROL SULFATE ORAL TABLET 4 MG, qd prn LYRICA ORAL CAPSULE CONVENTIONAL 75 MG, One PO BID (start one po qday x 1 week) ROS: GENERAL: Normal activity and energy level, no [...] nausea, vomiting, diarrhea, constipation, melena, or hematochezia.. MUSCULOSKELETAL: See HISTORY OF PRESENT ILLNESS. SOCIAL HISTORY: TOBACCO USE: Has no significant smoking history. PHYSICAL EXAMINATION: CONSTITUTIONAL: GENERAL APPEARANCE: Healthy appearing [...] hepatosplenomegaly, tenderness or nodularity. Kidneys not palpable. MUSCULOSKELETAL EXAM: The patient has tenderpoints. Tenderness on palpation of 11 of these sites mp patient with at least a three month history of diffuse musculoskeletal pain is recommended as a diagnostic standard for fibromyalgia. + upper neck x 2 + shoulder x 2 + mid back x 2 + Knee x 2 + elbow x 2 + lumbar spine x 2. + hips x 2. + clavicle x 2 + scm muscle x 2. ASSESSMENT/PLAN: 424.0-MITRAL VALVE PROLAPSE stable. no chest pain. ASSESSMENT: 477.9-RHINITIS ALLERGIC UNSPECIFIED ASSESSMENT: The patient's allergic rhinitis continues to remain stable. Will not change medication,continue to monitor for complications. No laboratory work is necessary at this time. 493.90-ASTHMA UNSPECIFIED ASSESSMENT: The asthma is stable. The patient denies shortness of breath, cough, wheezing and reduced exercise tolerance. No complications noted from the medication presently being used. CLINICAL GUIDELINES: 729.1-FIBROMYALGIA ASSESSMENT: The patient's myalgia worsened. Will add medication to current regimen for better control. No laboratory work is necessary at this time. Will also check labs to differentiate other causesof muscle aches, including the rheumatologic diseases and pmr. MEDICATIONS: LYRICA ORAL CAPSULE CONVENTIONAL 75 MG, One PO BID (start one po qday x 1 week), 60 Dispensed, 3 Fills, status: CONTINUED, 07/14/2007. LAB ORDERS: Order number: [id number] Test Ordered: SED RATE 3093 Order number: [id number] Test Ordered: C REACTIVE PROTEIN 5328 Order number: [id number] Test Ordered: SUJATHA (SCREEN W/REFLEX TITER) 5200 Order number: [id number] Test Ordered: SUJATHA PROFILE 5270 Order number: [id number] Test Ordered: RHEUMATOID ARTHRITIS DIAGNOSTIC PANEL 5009 Order number: [id number] Test Ordered: CK 1788 Electronically Signed by: Shekhar Victoria MD on Saturday, July 14, 2007 documented in this encounter Plan of Treatment Not on file documented as of this encounter Visit Diagnoses Not on filedocumented in this encounter Care Teams Computerized Mill Mill Recorder Relationship Specialty Start Date End Date Shekhar Victoria MD PCP - General 10/15/07 06/12/18 documented as of this encounter
--- OUTSIDE RECORDS SUMMARY | 2024-07-31 00:12 | XMS_ITS | Encounter Summary ---
Author Organization [facility] Address 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
--- OUTSIDE RECORDS SUMMARY | 2024-07-31 00:12 | XMS_ITS | Encounter Summary ---
Author Organization [employer] Address 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
--- OUTSIDE RECORDS SUMMARY | 2024-07-31 00:12 | XMS_ITS | Encounter Summary ---
Author Organization [facility] Address 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 Sex Female 4:51 AM PER 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 Gender Identity Not on file Sexual Orientation Not on file documented as of this encounter Plan of Treatment Not on file documented as of this encounter Procedures Procedure Name Priority Date/Time Associated Diagnosis Comments GASTRIN Routine 08/25/2008 8:30 AM CDT IRON, TIBC, AND PERCENT SATURATION Routine 08/21/2008 10:12 AM CDT CBC WITH DIFFERENTIAL Routine 08/21/2008 10:12 AM CDT FERRITIN Routine 08/21/2008 10:12 AM CDT documented in this encounter Results * GASTRIN (08/25/2008 8:30 AM CDT) GASTRIN 20 <101 pg/mL [facility] Comment: Lab test performed by: [employer] [id number] [place], [place] STAS KRAFT MD Blood specimen (specimen) 08/25/2008 8:30 AM CDT 08/25/2008 8:49 AM CDT us Jaime Johnson MD CHEMISTRY ORDERABL ES Final Result INTERFACE SYSTEM Refer to clinic/hospital department [facility] CLIA# [id number] [address] [facility] [address] [place] [address] * (ABNORMAL) CBC WITH DIFFERENTIAL (08/21/2008 10:12 AM CDT) HEMATOCRIT 39.6 35.5 - 44.0 % [facility] RDW-STDEV 59.9(H) 37.1 - 48.7 fL [facility] RBC 4.87 3.90 - 4.90 M/uL [facility] MCHC 32.3 31.5 - 35.5 % [facility] MCV 81.3(L) 82.0 - 99.0 fL [facility] PLATELETS 189 140 - 350 K/uL [facility] HEMOGLOBIN 12.8 11.8 - 14.8 g/dL [facility] RDW 20.8(H) 11.5 - 14.5 % [facility] WBC 6.3 4.0 - 9.8 K/uL [facility] MCH 26.3(L) 27.2 - 32.6 pg [facility] MPV 9.9 9.3 - 12.4 fL [facility] BASOPHILS 0 0 - 2 % [facility] BASOPHILS ABSOLUTE 0.02 0.00 - 0.20 K/uL [facility] LYMPHOCYTES 31 16 - 45 % [facility] MONOCYTES 7 3 - 13 % [facility] MONOCYTE ABSOLUTE 0.41 0.10 - 1.30 K/uL [facility] NEUTROPHILS 57 45 - 70 % [facility] NEUTROPHIL ABSOLUTE 3.57 1.90 - 7.00 K/uL [facility] EOSINOPHILS 6 0 - 7 % [facility] EOSINOPHIL ABSOLUTE 0.37 0.00 - 0.70 K/uL [facility] LYMPHOCYTE ABSOLUTE 1.92 0.70 - 4.50 K/uL [facility] POIKILOCYTES Slight [facility] MICROCYTES Slight [facility] ANISOCYTOSIS Slight [facility] Blood specimen (specimen) 08/21/2008 10:12 AM CDT 08/21/2008 11:06 AM CDT Jaime Johnson MD HEMATOLOGY ORDERAB LES Edited Performing Organization Address City/[facility] de Phone Number INTERFACE SYSTEM Refer to clinic/hospital department [facility] CLIA# [id number] [address] [place] [address] * IRON AND TIBC (08/21/2008 10:12 AM CDT) IRON % SATURATION 22 15 - 50 % [facility] IRON 77 37 - 160 ug/dL [facility] TIBC 345 250 - 450 ug/dL [facility] TRANSFERRIN 272 200 - 360 mg/dL [facility] Blood specimen (specimen) 08/21/2008 10:12 AM CDT 08/21/2008 11:05 AM CDT Jaime Johnson MD CHEMISTRY ORDERABL ES Edited Performing Organization Address City/[facility] de Phone Number INTERFACE SYSTEM Refer to clinic/hospital department [facility] CLIA# [id number] [address] [place] [address] * FERRITIN (08/21/2008 10:12 AM CDT) FERRITIN 64 13 - 150 ng/mL [facility] Blood specimen (specimen) 08/21/2008 10:12 AM CDT 08/21/2008 11:05 AM CDT us Jaime Johnson MD CHEMISTRY ORDERABL ES Edited INTERFACE SYSTEM Refer to clinic/hospital department [facility] CLIA# [id number] [address] [place] [address] documented in this encounter Visit Diagnoses Diagnosis Iron deficiency anemia, unspecified documented in this encounter Care Teams Paint Technician Relationship Specialty Start Date End Date Shekhar Victoria MD PCP - General 10/15/07 06/12/18 documented as of this encounter
--- OUTSIDE RECORDS SUMMARY | 2024-07-31 00:12 | XMS_ITS | Encounter Summary ---
Author Organization [facility] Address [address] [place] [address] Care Team Providers Care Director Of Public Safety Name Role Phone Shekhar Victoria MD Primary Care Provider [phone] Encounter Details Date Type Department Care Team (Late st Contact Info) Description 07/17/2007 Outpatient Historical [facility] Internal Medicine - [place] [address] [place] [address] [place] [address] [facility] [address] [place] [address] Social History Tobacco Use Types Packs/Day Years Used Date Smoking Tobacco: Never Assessed Comments Unknown Sex and Gender Information Value Date Recorded Sex Assigned at Not on file 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
--- OUTSIDE RECORDS SUMMARY | 2024-07-31 00:12 | XMS_ITS | Encounter Summary ---
Author Organization [facility] Address [address] [place] [address] Care Team Providers Care Telephone Directory Deliverer Name Role Phone Shekhar Victoria MD Primary Care Provider [phone] Encounter Details Date Type Department Care Team (Late st Contact Info) Description 07/14/2007 Outpatient Historical [facility] Internal Medicine - [place] [address] [place] [address] [place] [address] [facility] [address] [place] [address] Social History Tobacco Use Types Packs/Day Years Used Date Smoking Tobacco: Never Assessed Comments Unknown Sex and Gender Information Value Date Recorded Sex Assigned at Not on file 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
--- OUTSIDE RECORDS SUMMARY | 2024-07-31 00:12 | XMS_ITS | Encounter Summary ---
Author Organization [facility] Address 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 Sex Female 4:51 AM IT OPERATIONS SPECIALIST Gender Identity Not on file Sexual Orientation Not on file documented as of this encounter Plan of Treatment Not on file documented as of this encounter Procedures Procedure Name Priority Date/Time Associated Diagnosis Comments T4 FREE Routine 05/27/2008 8:58 AM IT OPERATIONS SPECIALIST documented in this encounter Results * T4 FREE (05/27/2008 8:58 AM IT OPERATIONS SPECIALIST) T4 FREE 1.2 0.9 - 1.7 ng/dL [facility] Blood specimen (specimen) 05/27/2008 8:58 AM IT OPERATIONS SPECIALIST 05/27/2008 9:19 AM IT OPERATIONS SPECIALIST us Jaime Johnson MD CHEMISTRY ORDERABL ES Final Result INTERFACE SYSTEM Refer to clinic/hospital department [facility] CLIA# [id number] [address] [place] [address] documented in this encounter Visit Diagnoses Diagnosis Unspecified hypothyroidism documented in this encounter Care Teams Animal Behaviourist Relationship Specialty Start Date End Date Shekhar Victoria MD PCP - General 10/15/07 06/12/18 documented as of this encounter
--- OUTSIDE RECORDS SUMMARY | 2024-07-31 00:12 | XMS_ITS | Encounter Summary ---
Author Organization [employer] Address 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
--- OUTSIDE RECORDS SUMMARY | 2024-07-31 00:12 | XMS_ITS | Encounter Summary ---
Author Organization [facility] Address [address] [place] [address] Care Team Providers Care Concrete Fence Builder Name Role Phone Shekhar Victoria MD Primary Care Provider [phone] Encounter Details Date Type Department Care Team (Latest Contact Info) Description 05/04/2008 Outpatient Historical HIS [facility] GUSTAVO Johnson, Jaime Grossman MD NO ADDRESS ON FILE Hemorrhage of Rectum and Anus; Acute Stomach Ulcer; Unspecified Iron Deficiency Anemia Social History Tobacco Use Types Packs/Day Years Used Date Smoking Tobacco: Never Assessed Comments No Sex and Gender Information Value Date Recorded Sex Assigned at Not on file 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 Sex Female 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 Gender Identity Not on file Sexual Orientation Not on file documented as of this encounter Plan of Treatment Not on file documented as of this encounter Procedures Procedure Name Priority Date/Time Associated Diagnosis Comments CBC WITH DIFFERENTIAL Routine 05/04/2008 9:37 AM MOTION PICTURE SET GRIP C-REACTIVE PROTEIN Routine 05/04/2008 9: 37 AM MOTION PICTURE SET GRIP TSH Routine 05/04/2008 9:37 AM MOTION PICTURE SET GRIP documented in this encounter Results * (ABNORMAL) CBC WITH DIFFERENTIAL (05/04/2008 9:37 AM MOTION PICTURE SET GRIP) MCV 72.0(L) 82.0 - 99.0 fL [facility] PLATELETS 253 140 - 350 K/uL [facility] HEMOGLOBIN 10.2(L) 11.8 - 14.8 g/dL [facility] RDW 18.1(H) 11.5 - 14.5 % [facility] WBC 5.7 4.0 - 9.8 K/uL [facility] MCH 22.0(L) 27.2 - 32.6 pg [facility] MPV 9.4 9.3 - 12.4 fL [facility] HEMATOCRIT 33.4(L) 35.5 - 44.0 % [facility] RDW-STDEV 47.1 37.1 - 48.7 fL [facility] RBC 4.64 3.90 - 4.90 M/uL [facility] MCHC 30.5(L) 31.5 - 35.5 % [facility] NEUTROPHILS 52 45 - 70 % [facility] NEUTROPHIL ABSOLUTE 2.96 1.90 - 7.00 K/uL [facility] EOSINOPHILS 8(H) 0 - 7 % [facility] EOSINOPHIL ABSOLUTE 0.44 0.00 - 0.70 K/uL [facility] LYMPHOCYTES 34 16 - 45 % [facility] LYMPHOCYTE ABSOLUTE 1.94 0.70 - 4.50 K/uL [facility] BASOPHILS 0 0 - 2 % [facility] BASOPHILS ABSOLUTE 0.02 0.00 - 0.20 K/uL [facility] MONOCYTES 6 3 - 13 % [facility] MONOCYTE ABSOLUTE 0.32 0.10 - 1.30 K/uL [facility] MICROCYTES [facility] ANISOCYTOSIS [facility] OVALOCYTES [facility] POIKILOCYTES [facility] Blood specimen (specimen) 05/04/2008 9:37 AM MOTION PICTURE SET GRIP 05/04/2008 10:02 AM MOTION PICTURE SET GRIP Jaime Johnson MD HEMATOLOGY ORDERAB LES Edited Performing Organization Address [facility] Phone Number INTERFACE SYSTEM Refer to clinic/hospital department [facility] CLIA# [id number] [address] [place] [address] * (ABNORMAL) TSH (05/04/2008 9:37 AM MOTION PICTURE SET GRIP) TSH 4.46(H) 0.27 - 4.20 uU/mL [facility] Blood specimen (specimen) 05/04/2008 9:37 AM MOTION PICTURE SET GRIP 05/04/2008 10:01 AM MOTION PICTURE SET GRIP Jaime Johnson MD CHEMISTRY ORDERABL ES Final Result Performing Organization Address [facility] Phone Number INTERFACE SYSTEM Refer to clinic/hospital department [facility] CLIA# [id number] [address] [place] [address] * C-REACTIVE PROTEIN (05/04/2008 9:37 AM MOTION PICTURE SET GRIP) CRP <0.2 0.0 - 0.8 mg/dL [facility] Blood specimen (specimen) 05/04/2008 9:37 AM MOTION PICTURE SET GRIP 05/04/2008 10:01 AM MOTION PICTURE SET GRIP Jaime Johnson MD CHEMISTRY ORDERABL ES Final Result Performing Organization Address [facility] Phone Number INTERFACE SYSTEM Refer to clinic/hospital department [facility] CLIA# [id number] [address] [place] [address] documented in this encounter Visit Diagnoses Diagnosis Hemorrhage of rectum and anus Acute gastric ulcer without mention of hemorrhage, perforation, or obstruction Iron deficiency anemia, unspecified documented in this encounter Care Teams Concrete Fence Builder Relationship Specialty Start Date End Date Esme, Shekhar Shields MD PCP - General 10/15/07 06/12/18 documented as of this encounter
--- OUTSIDE RECORDS SUMMARY | 2024-07-31 00:12 | XMS_ITS | Encounter Summary ---
Author Organization [facility] Address [address] [place] [address] Care Team Providers Care Scissors Sharpener Name Role Phone Shekhar Victoria MD Primary Care Provider [phone] Encounter Details Date Type Department Care Team (Latest Contact Info) Description 07/14/2007 Outpatient Historical [facility] [address] [place] [address] [place] [id number] [facility] [address] [place] [address] Unspecified Myalgia and Myositis Social History Tobacco Use Types Packs/Day Years Used Date Smoking Tobacco: Never Assessed Comments Unknown Sex and Gender Information Value Date Recorded Sex Assigned at Not on file Legal Sex Female 4:51 AM APPLICATION CHEMIST Gender Identity Not on file Sexual Orientation Not on file documented as of this encounter Plan of Treatment Not on file documented as of this encounter Procedures Procedure Name Priority Date/Time Associated Diagnosis Comments SUJATHA PANEL Routine 07/14/2007 5:16 PM APPLICATION CHEMIST SEDIMENTATION RATE Routine 07/14/2007 5: 16 PM APPLICATION CHEMIST RHEUMATOID FACTOR Routine 07/14/2007 5:1 6 PM APPLICATION CHEMIST COMPLEMENT C3 Routine 07/14/2007 5:16 PM APPLICATION CHEMIST COMPLEMENT C4 Routine 07/14/2007 5:16 PM APPLICATION CHEMIST C-REACTIVE PROTEIN Routine 07/14/2007 5: 16 PM APPLICATION CHEMIST CK Routine 07/14/2007 5:16 PM APPLICATION CHEMIST documented in this encounter Results * COMPLEMENT C3 (07/14/2007 5:16 PM APPLICATION CHEMIST) COMPLEMENT C3 148 90 - 180 mg/dL [facility] Blood specimen (specimen) 07/14/2007 5:16 PM APPLICATION CHEMIST 07/14/2007 5:17 PM APPLICATION CHEMIST us Shekhar Victoria MD CHEMISTRY ORDERABLES Final Resul t Performing Organization Address [facility] Co de Phone Number [facility] [address] [place] [address] * C-REACTIVE PROTEIN (07/14/2007 5:16 PM APPLICATION CHEMIST) CRP 0.3 0.0 - 0.8 mg/dL [facility] Blood specimen (specimen) 07/14/2007 5:16 PM APPLICATION CHEMIST 07/14/2007 5:16 PM APPLICATION CHEMIST Result Swati Victoria MD CHEMISTRY ORDERABLES Final Resul t Performing Organization Address [facility] Co de Phone Number [facility] [address] [place] [address] * RHEUMATOID FACTOR (07/14/2007 5:16 PM APPLICATION CHEMIST) RHEUMATOID FACTOR 6.9 0.0 - 13.9 IU/mL [facility] Blood specimen (specimen) 07/14/2007 5:16 PM APPLICATION CHEMIST 07/14/2007 5:17 PM APPLICATION CHEMIST Result Swati Victoria MD CHEMISTRY ORDERABLES Final Resul t Performing Organization Address City/[facility]/ZIP Co de Phone Number [facility] [address] [place] [address] * (ABNORMAL) COMPLEMENT C4 (07/14/2007 5:16 PM APPLICATION CHEMIST) COMPLEMENT C4 43(H) 10 - 40 mg/dL [facility] Blood specimen (specimen) 07/14/2007 5:16 PM APPLICATION CHEMIST 07/14/2007 5:17 PM APPLICATION CHEMIST Shekhar Victoria MD CHEMISTRY ORDERABLES Final Resul t [facility] [address] [place], [place] [address] * SUJATHA PANEL (07/14/2007 5:16 PM APPLICATION CHEMIST) SUJATHA SCREEN NEGATIVE NEGATIVE [facility] Comment: Lab test performed by: [employer] [id number] CAROLA ARMENTA MD JUAN FRANCISCO ABS, SM/PUMP OILER AB <1.0 NEG <1.0 NEG Index [facility] Comment: Lab test performed by: [employer] [id number] CAROLA ARMENTA MD DNA AUTOABS DOUBLE STRANDED <1 IU/mL [facility] Comment: IU/mL INTERPRETATION ===== < OR = 4 NEGATIVE 5 - 9 INDETERMINATE > OR = 10 POSITIVE Lab test performed by: [employer] [id number] CAROLA ARMENTA MD SCLERODERMA AB SCL 70 <1.0 NEG <1.0 NEG Index [facility] Comment: Lab test performed by: [employer] [id number] CAROLA ARMENTA MD JUAN FRANCISCO ABS, SM AB <1.0 NEG <1.0 NEG Index [facility] SJOGRENS ABS (SSA) <1.0 NEG <1.0 NEG Index [facility] SJOGRENS ABS (SSB) <1.0 NEG <1.0 NEG Index [facility] Comment: Lab test performed by: [employer] [address] [place] [address] CAROLA ARMENTA MD Blood specimen (specimen) 07/14/2007 5:16 PM APPLICATION CHEMIST 07/14/2007 6:16 PM APPLICATION CHEMIST us Shekhar Victoria MD CHEMISTRY ORDERABLES Edited Performing Organization Address [facility] de Phone Number [facility] [address] [place] [address] * (ABNORMAL) SEDIMENTATION RATE (07/14/2007 5:16 PM APPLICATION CHEMIST) ESR (SEDIMENTATION RATE) 32(H) 0 - 20 mm/hr [facility] Blood specimen (specimen) 07/14/2007 5:16 PM APPLICATION CHEMIST 07/14/2007 5:16 PM APPLICATION CHEMIST us Shekhar Victoria MD HEMATOLOGY ORDERABLES Final Resu lt Performing Organization Address [facility] de Phone Number [facility] [address] [place] [address] * CK (07/14/2007 5:16 PM APPLICATION CHEMIST) CK 73 10 - 145 U/L [facility] Blood specimen (specimen) 07/14/2007 5:16 PM APPLICATION CHEMIST 07/14/2007 5:16 PM APPLICATION CHEMIST us Shekhar Victoria MD CHEMISTRY ORDERABLES Final Resul t Performing Organization Address [facility] de Phone Number [facility] [address] [place] [address] documented in this encounter Visit Diagnoses Diagnosis Myalgia and myositis, unspecified Mylagia and myositis, unspecified documented in this encounter Care Teams Scissors Sharpener Relationship Specialty Start Date End Date Shekhar Victoria MD PCP - General 10/15/07 06/12/18 documented as of this encounter
--- OUTSIDE RECORDS SUMMARY | 2024-07-31 00:12 | XMS_ITS | Referral Summary ---
Author Organization [facility] Address [address] [place] [address] Care Team Providers Care Carpet Installation Specialist Name Role Phone Armando Robles MD Primary Care Provider [phone] Allergies Active Allergy Reactions Criticality Noted Date Comments Latex Hives,Rash Medium 05/19/2009 Oxycodone-Acetaminophen Propoxyphene-Acetaminophen Sulfa (Sulfonamide Antibiotics) Nausea & Vomiting Low 06/10/2007 Tetanus And Diphtheria Toxoids Fever Medium Tetanus Toxoid Fever Medium 06/12/2018 Medications acetaminophen-a spirin-caffeine (EXCEDRIN MIGRAINE) 250-250-65 mg per tablet TAKE 1 TABLET 3 TIMES DAILY NEEDED. Active ADVAIR DISKUS 100-50 mcg/dose diskus inhaler 8 Active montelukast (SINGULAIR) 10 mg tablet 8 Active multivitamin tabletIndicatio ns:Vitamin Deficiency Prevention Active PARoxetine (PAXIL) 30 mg tablet 8 Active traMADol (ULTRAM) 50 mg tablet 8 Active acetaminophen (TYLENOL) 325 mg tablet Active gabapentin (NEURONTIN) 300 mg capsule Take 300 mg by mouth nightly 9 Active ascorbic acid (VITAMIN C) 100 mg tablet Take 5 tablets (500 mg total) by mouth Active ergocalciferol, vitamin D2, 50 mcg (2,000 unit) capsule Take 2,000 Units by mouth Active alpha lipoic acid, bulk, powder Take by mouth 2 times daily Active cetirizine (ZyrTEC) 10 mg tablet daily Active omeprazole (PriLOSEC) 10 mg capsule Take by mouth daily Active iron,carbonyl-F R-rhnnzuos-qmg (OPURITY MULTIVITAMIN) 30 mg iron- 800 mcg tablet,chewable daily Acti ve cromolyn (NASALCHROM) 5.2 mg/spray (4 %) nasal spray Administer 1 spray into affected nostril(s) 4 (four) times a day 9 Active niacin ER (SLO-NIACIN) 500 mg CR tablet Take 500 mg by mouth nightly Active pregabalin (LYRICA) 150 mg capsule Take 1 capsule (150 mg total) by mouth 2 times daily 9 Active fluticasone propion-salmete rol (ADVAIR DISKUS) 100-50 mcg/dose diskus inhaler as directed 8 Active clindamycin (CLEOCIN T) 1 % external solution Apply to face daily 60 mL 11 9 Active albuterol HFA (PROVENTIL HFA,VENTOLIN HFA,PROAIR HFA) 90 mcg/actuation inhaler Inhale 2 puffs every 6 (six) hours as needed for wheezing 1 each 3 Active Active Problems Problem Noted Date Diagnosed Date Mild persistent asthma with exacerbation 023 Assessment & Plan (05/06/2023 6:01 PM METER READER CHIEF): VSS, NAD, lungs CTAB, significant coughing noted Sx duration 4 days Rapid COVID, flu negative. PCR pending Patient declined strep testing, currently not having any sore throat. No known close contact exposure History of underlying mild persistent, on Advair, albuterol as needed Singulair Prednisone 40 mg daily for 5 days Tessalon as needed as cough suppressant Mucinex as cough expectorant Zyrtec, Claritin , flonase for drainage Nasal saline , sudafed for congestion, avoid for high BP, . If so, coricidin ER for worsening sx, CP, SOB Cough 05/06/2023 Assessment & Plan (05/06/2023 6:02 PM METER READER CHIEF): VSS, NAD, lungs CTAB, significant coughing noted Sx duration 4 days Rapid COVID, flu negative. PCR pending Patient declined strep testing, currently not having any sore throat. No known close contact exposure History of underlying mild persistent, on Advair, albuterol as needed Singulair Possible viral URI exacerbation asthma Await results Prednisone 40 mg daily for 5 days Tessalon as needed as cough suppressant Mucinex as cough expectorant Zyrtec, Claritin , flonase for drainage Nasal saline , sudafed for congestion, avoid for high BP, . If so, coricidin ER for worsening sx, CP, SOB Anxiety 12/29/2018 Asthma 12/29/2018 Small fiber neuropathy 12/29/2018 Palpitations 11/25/2018 Disorder of peripheral nervous system 03/29/2016 Acne 03/05/2016 Chloasma 03/05/2016 Skin benign neoplasm 03/05/2016 Dermatitis of eyelid 03/05/2016 Pain in extremity 01/19/2016 Hypersomnia 01/18/2016 Blurring of visual image 09/29/2015 Dizziness 09/29/2015 Paresthesia 09/29/2015 Oral contraceptive prescribed 02/26/2014 Mass of breast 02/10/2014 Reactive depression 02/10/2014 Fibromyalgia 02/10/2014 Social History Tobacco Use Types Packs/Day Years Used Date Smoking Tobacco: Never Tobacco Cessation:Counseling Given: Yes Personal Safety Answer Date Recorded Getting School Help Needed Not on file 05/05 Comments Unknown Sex and Gender Information Value Date Recorded Sex Assigned at Not on file Legal Sex Female 3:58 AM METER READER CHIEF Gender Identity Not on file Sexual Orientation Not on file Last Filed Vital Signs Vital Sign Reading Time Taken Comments Blood Pressure 128/82 05/06/2023 5:16 PM METER READER CHIEF Pulse 60 05/06/2023 5:16 PM METER READER CHIEF Temperature 36.8 C (98.3 F) 05/06/2023 5:16 PM METER READER CHIEF Respiratory Rate 20 05/06/2023 5:16 PM METER READER CHIEF Oxygen Saturation 99% 05/06/2023 5:16 PM METER READER CHIEF Inhaled Oxygen Concentration - - Weight 83 kg (183 lb) 02/23/2019 10:09 AM CDT Height 167.6 cm (5' 6 ) 02/23/2019 10:09 AM CDT Body Mass Index 29.54 02/23/2019 10:09 AM CDT Plan of Treatment Not on file Procedures Procedure Name Priority Date/Time Associated Diagnosis Comments DIAGNOSTIC MAMMOGRAM BILATERAL W ANDREEA Schedule Routine, Read Routine (OP Routine) 08/08/2022 4:18 PM CDT Breast pain, left from Last 3 Months or Most Recently Relevant to Health Maintenance Results * Diagnostic Mammogram Bilateral W Andreea (08/08/2022 4:18 PM CDT) Anatomical Region Laterality Modality Breast Bilateral Mammography 08/08/2022 4:23 PM CDT Impressions 08/08/2022 4:33 PM CDT 1. No mammographic findings to correlate to the patient's LEFT breast pain. 2. No mammographic evidence of malignancy in EITHER breast. OVERALL FINAL ASSESSMENT: BI-RADS Category 2: Benign. RECOMMENDATION: 1. Annual screening mammography is recommended. 2. Clinical follow-up is recommended. Dictated by: Margarette Chau MD The radiology attending physician has personally reviewed this study, and had reviewed and/or edited this written report and agrees with it. Electronically signed by: Emilee Dejesus M.D. Narrative 08/08/2022 4:33 PM CDT EXAMINATION: BILATERAL DIGITAL DIAGNOSTIC MAMMOGRAM INCLUDING CAD AND BILATERAL DIGITAL BREAST TOMOSYNTHESIS HISTORY: 41-year-old woman with chronic mastalgia and history of fibroadenoma biopsied in 2013. No new symptoms since last exam. COMPARISON: Diagnostic mammogram dated 06/15/2021 with additional mammograms dating back to 02/16/2014 TECHNIQUE: Full field digital mammographic views of BOTH breasts were performed, including computer aided detection (CAD) and BILATERAL digital breast tomosynthesis (DBT). BREAST PARENCHYMAL COMPOSITION: The breasts are extremely dense, which lowers the sensitivity of mammography. MAMMOGRAM FINDINGS: There is a benign mass within the LEFT breast which has been stable since 2014, and has undergone biopsy. No new mass, suspicious calcifications or distortion within EITHER breast is seen to suggest malignancy. Procedure Note Emilee Dejesus MD - 08/08/2022 EXAMINATION: BILATERAL DIGITAL DIAGNOSTIC MAMMOGRAM INCLUDING CAD AND BILATERAL DIGITAL BREAST TOMOSYNTHESIS HISTORY: 41-year-old woman with chronic mastalgia and history of fibroadenoma biopsied in 2013. No new symptoms since last exam. COMPARISON: Diagnostic mammogram dated 06/15/2021 with additional mammograms dating back to 02/16/2014 TECHNIQUE: Full field digital mammographic views of BOTH breasts were performed, including computer aided detection (CAD) and BILATERAL digital breast tomosynthesis (DBT). BREAST PARENCHYMAL COMPOSITION: The breasts are extremely dense, which lowers the sensitivity of mammography. MAMMOGRAM FINDINGS: There is a benign mass within the LEFT breast which has been stable since 2014, and has undergone biopsy. No new mass, suspicious calcifications or distortion within EITHER breast is seen to suggest malignancy. IMPRESSION: 1. No mammographic findings to correlate to the patient's LEFT breast pain. 2. No mammographic evidence of malignancy in EITHER breast. OVERALL FINAL ASSESSMENT: BI-RADS Category 2: Benign. RECOMMENDATION: 1. Annual screening mammography is recommended. 2. Clinical follow-up is recommended. Dictated by: Margarette Chau MD The radiology attending physician has personally reviewed this study, and had reviewed and/or edited this written report and agrees with it. Electronically signed by: Emilee Dejesus M.D. Shaunna Kennedy CERTIFIED HEALTH EDUCATION SPECIALIST IMG MAMMO PROCEDURES Final Result from Last 3 Months or Most Recently Relevant to Health Maintenance Insurance [employer] OPEN ACCESS ANTHEM ACCESS CHOICE Member Subscriber Plan / Payer (Ef fective 2017-Present) Name:Cole Khan Vera Julien Relation to Subscriber:Spouse Name:VERA LOU Date of :1978 (Home) Address: [address] [place] [address] [place] [address] Payer ID:[id number] (NAIC) Type:[employer] Address: [address] [facility] H[facility]/PPO Address: [address] [address] [place] [address] [place] [address] [facility] OPEN ACCESS Care Teams Carpet Installation Specialist Relationship Specialty Start Date End Date Armando Robles MD PCP - General 06/22/15
--- OUTSIDE RECORDS SUMMARY | 2024-07-31 00:12 | XMS_ITS | Encounter Summary ---
Author Organization [employer] Address [address] [place] [address] Care Team Providers Care Caterer'S Aide Name Role Phone Shekhar Victoria MD Primary Care Provider [phone] Encounter Details Date Type Department Care Team (Latest Contact Info) Description 06/22/2008 Outpatient Historical [facility] Jaime Johnson MD NO ADDRESS ON FILE Unspecified Iron Deficiency Anemia Social History Tobacco Use Types Packs/Day Years Used Date Smoking Tobacco: Never Assessed Comments No Sex and Gender Information Value Date Recorded Sex Assigned at Not on file Legal Sex Female 4:51 AM CURATOR HERBARIUM Gender Identity Not on file Sexual Orientation Not on file documented as of this encounter Plan of Treatment Not on file documented as of this encounter Procedures Procedure Name Priority Date/Time Associated Diagnosis Comments CT ABDOMEN PELVIS W CONTRAST Routine 06/22/2008 9:17 AM CURATOR HERBARIUM IRON, TIBC, AND PERCENT SATURATION Routine 06/22/2008 8:40 AM CURATOR HERBARIUM CBC WITH DIFFERENTIAL Routine 06/22/2008 8:40 AM CURATOR HERBARIUM SEDIMENTATION RATE Routine 06/22/2008 8: 40 AM CURATOR HERBARIUM C-REACTIVE PROTEIN Routine 06/22/2008 8: 40 AM CURATOR HERBARIUM FERRITIN Routine 06/22/2008 8:40 AM CURATOR HERBARIUM CK Routine 06/22/2008 8:40 AM CURATOR HERBARIUM documented in this encounter Results * CT ABDOMEN PELVIS W CONTRAST (06/22/2008 9:17 AM CURATOR HERBARIUM) Anatomical Region Laterality Modality Abdomen Other 06/22/2008 9:17 AM CURATOR HERBARIUM Narrative 06/22/2008 9:52 AM CURATOR HERBARIUM [facility] [address] [place], [place] [address] Admit Date: 06/22/2008 IRENE MILES Sex: F Admit Prov: YVON JOHNSON Date: 1980 Primary Care Prov: SHEKHAR VICTORIA; JABIER, CMRN: [id number] GIOVANNA Shields [id number]: [id number] Room: [facility] Ordering Prov: N/A Accession Number: [id number] Interpretation CT ABDOMEN AND PELVIS WITH IV CONTRAST, 06/22/2008 Clinical Indication: 27-year-old woman with iron deficiency anemia. Technique: Helical scanning of the abdomen and pelvis was performed with IV contrast. No oral contrast was administered Comparison: 02/27/08. Findings: Images through the lung bases are unremarkable. The liver is unremarkable in appearance without intrahepatic biliary ductal dilatation. The gallbladder is present. Again demonstrated is focal circumferential mural thickening of the gastric body/antrum. This appears less thick as compared to the prior exam. The spleen, pancreas and adrenal glands are unremarkable. Both kidneys enhance symmetrically and there is no hydronephrosis. Several punctate nonobstructing renal calculi are are noted bilaterally. There is an 8 mm low density lesion within the midportion of the right kidney laterally which is too small to accurately characterize. No pathologically enlarged upper abdominal or retroperitoneal lymph nodes are seen. Within the pelvis, the uterus is present. There is a small amount of free fluid which is likely physiologic. There is a peripherally enhancing structure in the right adnexa which may represent a corpus luteum. The appendix is unremarkable. Impression: 1. Persistent focal mural thickening of the distal gastric body/antrum. Differential considerations are unchanged including ulcer or neoplasm. The degree of wall thickening may be slightly less. 2. Bilateral nonobstructing renal calculi. 3. 8 mm low density right renal lesion which is too small to accurately characterize. . Dictated by: ALTON ZAPIEN 06/22/2008 09:31 Electronically signed by: ALTON ZAPIEN 06/22/2008 09:50 Transcribed: 06/22/2008 09:48 SMM Procedure Note Alton Zapien - 06/22/2008 [facility] [address] [place], [place] [address] Admit Date: 06/22/2008 IRENE MILES Sex: F Admit Prov: YVON JOHNSON Date: 1980 Primary Care Prov: SHEKHAR VICTORIA; JABIER, CMRN: [id number] GIOVANNA Shields SSN: [id number] Room: [facility] Ordering Prov: N/A Interpretation CT ABDOMEN AND PELVIS WITH IV CONTRAST, 06/22/2008 Clinical Indication: 27-year-old woman with iron deficiency anemia. Technique: Helical scanning of the abdomen and pelvis was performedwith IV contrast. No oral contrast was administered Comparison: 02/27/08. Findings: Images through the lung bases are unremarkable. The liver is unremarkable in appearance without intrahepatic biliaryductal dilatation. The gallbladder is present. Again demonstrated is focal circumferential mural thickening of the gastric body/antrum. Thisappears less thick as compared to the prior exam. The spleen, pancreas andadrenal glands are unremarkable. Both kidneys enhance symmetrically and thereis no hydronephrosis. Several punctate nonobstructing renal calculi are arenoted bilaterally. There is an 8 mm low density lesion within themidportion of the right kidney laterally which is too small to accuratelycharacterize. No pathologically enlarged upper abdominal or retroperitoneal lymphnodes are seen. Within the pelvis, the uterus is present. There is a small amount offree fluid which is likely physiologic. There is a peripherallyenhancing structure in the right adnexa which may represent a corpus luteum.The appendix is unremarkable. Impression: 1. Persistent focal mural thickening of the distal gastricbody/antrum. Differential considerations are unchanged including ulcer orneoplasm. The degree of wall thickening may be slightly less. 2. Bilateral nonobstructing renal calculi. 3. 8 mm low density right renal lesion which is too small toaccurately characterize. . Dictated by: ALTON ZAPIEN 06/22/2008 09:31 Electronically signed by: ALTON ZAPIEN 06/22/2008 09:50 Transcribed: 06/22/2008 09:48 SMM Jaime Johnson MD CT ORDERABLES Fi nal Result * CK (06/22/2008 8:40 AM CURATOR HERBARIUM) Pathologist [facility] CK 94 10 - 145 U/L [facility] Blood specimen (specimen) 06/22/2008 8:40 AM CURATOR HERBARIUM 06/22/2008 9:32 AM CURATOR HERBARIUM Jaime Johnson MD CHEMISTRY ORDERABL ES Final Result INTERFACE SYSTEM Refer to clinic/hospital department [facility] CLIA# [id number] [address] [facility] [place] [address] * (ABNORMAL) CBC WITH DIFFERENTIAL (06/22/2008 8:40 AM CURATOR HERBARIUM) [facility] HEMOGLOBIN 9.6(L) 11.8 - 14.8 g/dL [facility] RDW 16.7(H) 11.5 - 14.5 % [facility] WBC 4.5 4.0 - 9.8 K/uL [facility] MCH 22.1(L) 27.2 - 32.6 pg [facility] MPV 9.8 9.3 - 12.4 fL [facility] HEMATOCRIT 31.1(L) 35.5 - 44.0 % [facility] RDW-STDEV 43.7 37.1 - 48.7 fL [facility] RBC 4.34 3.90 - 4.90 M/uL [facility] MCHC 30.9(L) 31.5 - 35.5 % [facility] MCV 71.7(L) 82.0 - 99.0 fL [facility] PLATELETS 196 140 - 350 K/uL [facility] LYMPHOCYTES 30 16 - 45 % [facility] LYMPHOCYTE ABSOLUTE 1.37 0.70 - 4.50 K/uL [facility] BASOPHILS 1 0 - 2 % [facility] BASOPHILS ABSOLUTE 0.03 0.00 - 0.20 K/uL [facility] MONOCYTES 8 3 - 13 % [facility] MONOCYTE ABSOLUTE 0.35 0.10 - 1.30 K/uL [facility] NEUTROPHILS 52 45 - 70 % [facility] NEUTROPHIL ABSOLUTE 2.34 1.90 - 7.00 K/uL [facility] EOSINOPHILS 9(H) 0 - 7 % [facility] EOSINOPHIL ABSOLUTE 0.41 0.00 - 0.70 K/uL [facility] Blood specimen (specimen) 06/22/2008 8:40 AM CURATOR HERBARIUM 06/22/2008 9:32 AM CURATOR HERBARIUM Jaime Johnson MD HEMATOLOGY ORDERAB LES Edited Performing Organization Address City/[facility] de Phone Number INTERFACE SYSTEM Refer to clinic/hospital department [facility] CLIA# [id number] [address] [facility] [place] [address] * (ABNORMAL) SEDIMENTATION RATE (06/22/2008 8:40 AM CURATOR HERBARIUM) ESR (SEDIMENTATION RATE) 22(H) 0 - 20 mm/hr [facility] Blood specimen (specimen) 06/22/2008 8:40 AM CURATOR HERBARIUM 06/22/2008 9:32 AM CURATOR HERBARIUM Jaime Johnson MD HEMATOLOGY ORDERAB LES Final Result Performing Organization Address City/[facility] Co de Phone Number INTERFACE SYSTEM Refer to clinic/hospital department [facility] CLIA# [id number] [address] [place] [address] * (ABNORMAL) IRON AND TIBC (06/22/2008 8:40 AM CURATOR HERBARIUM) IRON % SATURATION 4(L) 15 - 50 % [facility] IRON 18(L) 37 - 160 ug/dL [facility] TIBC 456(H) 250 - 450 ug/dL [facility] TRANSFERRIN 359 200 - 360 mg/dL [facility] Blood specimen (specimen) 06/22/2008 8:40 AM CURATOR HERBARIUM 06/22/2008 9:32 AM CURATOR HERBARIUM Jaime Johnson MD CHEMISTRY ORDERABL ES Edited Performing Organization Address City/[facility]/ZIP Co de Phone Number INTERFACE SYSTEM Refer to clinic/hospital department [facility] CLIA# [id number] [address] [place] [address] * (ABNORMAL) FERRITIN (06/22/2008 8:40 AM CURATOR HERBARIUM) Pathologist [facility] FERRITIN 4(L) 13 - 150 ng/mL [facility] Blood specimen (specimen) 06/22/2008 8:40 AM CURATOR HERBARIUM 06/22/2008 9:32 AM CURATOR HERBARIUM Jaime Johnson MD CHEMISTRY ORDERABL ES Final Result Performing Organization Address City/[facility]/ZIP Co de Phone Number INTERFACE SYSTEM Refer to clinic/hospital department [facility] CLIA# [id number] [address] [place] [address] * C-REACTIVE PROTEIN (06/22/2008 8:40 AM CURATOR HERBARIUM) CRP <0.2 0.0 - 0.8 mg/dL [facility] Blood specimen (specimen) 06/22/2008 8:40 AM CURATOR HERBARIUM 06/22/2008 9:32 AM CURATOR HERBARIUM us Jaime Johnson MD CHEMISTRY ORDERABL ES Final Result INTERFACE SYSTEM Refer to clinic/hospital department [facility] CLIA# [id number] [address] [place] [address] documented in this encounter Visit Diagnoses Diagnosis Iron deficiency anemia, unspecified documented in this encounter Care Teams Caterer'S Aide Relationship Specialty Start Date End Date Shekhar Victoria MD PCP - General 10/15/07 06/12/18 documented as of this encounter
--- OUTSIDE RECORDS SUMMARY | 2024-07-31 00:12 | XMS_ITS | Encounter Summary ---
Author Organization [facility] Address 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 Gender Identity Not on file Sexual Orientation Not on file documented as of this encounter Plan of Treatment Not on file documented as of this encounter Procedures Procedure Name Priority Date/Time Associated Diagnosis Comments XR SMALL BOWEL Timed Study 05/31/2008 9:00 AM POLICE DISTRICT SWITCHBOARD OPERATOR documented in this encounter Results * XR SMALL BOWEL (05/31/2008 9:00 AM POLICE DISTRICT SWITCHBOARD OPERATOR) Anatomical Region Laterality Modality Abdomen Other 05/31/2008 9:00 AM POLICE DISTRICT SWITCHBOARD OPERATOR Narrative 06/01/2008 12:34 PM POLICE DISTRICT SWITCHBOARD OPERATOR [facility] [address] [place], [place] [address] Admit Date: 05/31/2008 VERA MILES Sex: F Admit Prov: YVON JOHNSON Date: 1980 Primary Care Prov: SHEKHAR VICTORIA CMRN: [id number] GIOVANNA Shields SSN: [id number] Room: [facility] Ordering Prov: N/A Accession Number: [id number] Interpretation SMALL BOWEL SERIES, 05/31/2008 Clinical history: Mural soft tissue mass of the distal stomach, proctitis, anemia. Findings: A preliminary abdominal elementary assistant teacher radiograph is not remarkable. A series of abdominal radiographs were obtained following oral administration of barium. Contrast is seen within the colon on the 60 minute radiograph. The small bowel is normal in caliber and shows a normal mucosal pattern throughout. No intrinsic or extrinsic small bowel radiographic abnormalities are seen including a normal appearance of the terminal ileum. Although the stomach was not evaluated on this exam there is suggestion of some abnormal fold thickening in the distal half of the stomach possibly related to the gastric mass identified on previous CT of 02/27/2008. Impression: Radiographically normal small bowel findings. Suggestion of abnormal thickened folds of the distal stomach correlating with previous abnormal stomach findings on CT of 02/27/2008. . Dictated by: MENG ASTUDILLO 05/31/2008 10:25 Electronically signed by: MENG ASTUDILLO 06/01/2008 12:33 Transcribed: 05/31/2008 12:33 LE Procedure Note Meng Astudillo MD - 06/01/2008 [facility] [address] [place], [place] [address] Admit Date: 05/31/2008 VERA MILES Sex: F Admit Prov: YVON JOHNSON Date: 1980 Primary Care Prov: SHEKHAR VICTORIA CMRN: [id number] [facility] Cornelius SSN: [id number] Room: [facility] Ordering Prov: N/A Interpretation SMALL BOWEL SERIES, 05/31/2008 Clinical history: Mural soft tissue mass of the distal stomach,proctitis, anemia. Findings: A preliminary abdominal elementary assistant teacher radiograph is not remarkable.A series of abdominal radiographs were obtained following oraladministration of barium. Contrast is seen within the colon on the 60 minuteradiograph. The small bowel is normal in caliber and shows a normal mucosalpattern throughout. No intrinsic or extrinsic small bowel radiographic abnormalities are seen including a normal appearance of the terminalileum. Although the stomach was not evaluated on this exam there issuggestion of some abnormal fold thickening in the distal half of the stomachpossibly related to the gastric mass identified on previous CT of02/27/2008. Impression: Radiographically normal small bowel findings. Suggestion ofabnormal thickened folds of the distal stomach correlating with previousabnormal stomach findings on CT of 02/27/2008. . Dictated by: MENG ASTUDILLO 05/31/2008 10:25 Electronically signed by: MENG ASTUDILLO 06/01/2008 12:33 Transcribed: 05/31/2008 12:33 LE us Jaime Johnson MD DIAGNOSTIC IMAGING ORDERABLES Final Result documented in this encounter Visit Diagnoses Diagnosis Gastric ulcer, unspecified as acute or chronic, without mention of hemorrhage, perforation, or obstruction documented in this encounter Care Teams Squeegee Tender Relationship Specialty Start Date End Date Esme, Shekhar Shields MD PCP - General 10/15/07 06/12/18 documented as of this encounter
--- OUTSIDE RECORDS SUMMARY | 2024-07-31 00:12 | XMS_ITS | Encounter Summary ---
Author Organization [facility] Address [address] [place] [address] Care Team Providers Care Senior Data Analyst Name Role Phone Shekhar Victoria MD Primary Care Provider [phone] Encounter Details Date Type Department Care Team (Late st Contact Info) Description 02/29/2000 Outpatient Historical [address] 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
--- OUTSIDE RECORDS SUMMARY | 2024-07-31 00:12 | XMS_ITS | Encounter Summary ---
Author Organization [employer] Address [address] [place] [address] Care Team Providers Care Kitchen Operator Name Role Phone Shekhar Victoria MD Primary Care Provider [phone] Encounter Details Date Type Department Care Team (Latest Contact Info) Description 09/13/2008 Outpatient Historical [facility] [place] [address] [place] [address] Symptomatic Menopausal or Female Climacteric States Social History Tobacco Use Types Packs/Day Years Used Date Smoking Tobacco: Never Assessed Comments No Sex and Gender Information Value Date Recorded Sex Assigned at Not on file 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
--- OUTSIDE RECORDS SUMMARY | 2024-07-31 00:12 | XMS_ITS | Encounter Summary ---
Author Organization [facility] Address [address] [place] [address] Care Team Providers Care Quality Lead Name Role Phone Shekhar Victoria MD Primary Care Provider [phone] Encounter Details Date Type Department Care Team (Late st Contact Info) Description 11/13/2000 Outpatient Historical [address] 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
--- OUTSIDE RECORDS SUMMARY | 2024-07-31 00:12 | XMS_ITS | Encounter Summary ---
Author Organization [facility] Address [address] [place] [address] Care Team Providers Care Business Integration Analyst Name Role Phone Shekhar Victoria MD Primary Care Provider [phone] Encounter Details Date Type Department Care Team (Late st Contact Info) Description 04/22/2001 Outpatient Historical [address] 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
--- OUTSIDE RECORDS SUMMARY | 2024-07-31 00:12 | XMS_ITS | Encounter Summary ---
Author Organization [facility] Address 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 Gender Identity Not on file Sexual Orientation Not on file documented as of this encounter Plan of Treatment Not on file documented as of this encounter Procedures Procedure Name Priority Date/Time Associated Diagnosis Comments GLIADIN ABS IGG/IGA Routine 03/17/2008 1 0:47 AM CDT ENDOMYSIAL ANTIBODY SCREEN W/REFLX TITER Routine 03/17/2008 10:47 AM CDT TRANSGLUTAMINASE IGA ANTIBODY Routine 03/17/2008 10:47 AM CDT TRANSGLUTAMINASE IGG ANTIBODY Routine 03/17/2008 10:47 AM CDT C-REACTIVE PROTEIN Routine 03/17/2008 10 :47 AM CDT IGA Routine 03/17/2008 10:47 AM CDT documented in this encounter Results * C-REACTIVE PROTEIN (03/17/2008 10:47 AM CDT) CRP 0.2 0.0 - 0.8 mg/dL [facility] Blood specimen (specimen) 03/17/2008 10:47 AM CDT 03/17/2008 11:03 AM CDT Jaime Johnson MD CHEMISTRY ORDERABL ES Final Result Performing Organization Address [facility] Phone Number INTERFACE SYSTEM Refer to clinic/hospital department [facility] CLIA# [id number] [address] [place] [address] * ENDOMISIAL ANTIBODY SCREEN W/REFLX TITER (03/17/2008 10:47 AM CDT) [facility] ENDOMYSIAL AB IGA Negative Negative [facility] Comment: Lab test performed by: [facility] [place] [id number] [place], [place] STAS KRAFT MD Blood specimen (specimen) 03/17/2008 10:47 AM CDT 03/17/2008 11:03 AM CDT Jaime Johnson MD CHEMISTRY ORDERABL ES Final Result Performing Organization Address [facility] Phone Number INTERFACE SYSTEM Refer to clinic/hospital department [facility] CLIA# [id number] [address] [place] [address] * (ABNORMAL) GLIADIN ABS IGG/IGA (03/17/2008 10:47 AM CDT) Pathologist [facility] GLIADIN IGA AB 31(H) <11 U/mL [facility] Comment: Reference Range: <11 U/mL Negative 11-17 U/mL Equ[facility] >17 U/mL Positive Lab test performed by: [facility] [id number] [place], [place] STAS KRAFT MD GLIADIN IGG AB >100(H) <11 U/mL [facility] Comment: Reference Range: <11 U/mL Negative 11-17 U/mL Equivocal >17 U/mL Positive Blood specimen (specimen) 03/17/2008 10:47 AM CDT 03/17/2008 11:03 AM CDT Jaime Johnson MD CHEMISTRY ORDERABL ES Final Result Performing Organization Address [facility] de Phone Number INTERFACE SYSTEM Refer to clinic/hospital department [facility] CLIA# [id number] [address] [place] [address] * IGA (03/17/2008 10:47 AM CDT) IGA 231.1 83.0 - 336.0 mg/dL [facility] Blood specimen (specimen) 03/17/2008 10:47 AM CDT 03/17/2008 11:03 AM CDT Jaime Johnson MD CHEMISTRY ORDERABL ES Final Result Performing Organization Address [facility] de Phone Number INTERFACE SYSTEM Refer to clinic/hospital department [facility] CLIA# [id number] [address] [place] [address] * TRANSGLUTAMINASE IGA ANTIBODY (03/17/2008 10:47 AM CDT) TRANSGLUTAMINASE IGA AB <3 <5 U/mL [facility] Comment: Reference range: <5 U/mL Negative 5-8 U/mL Equivocal >8 U/mL Positive Lab test performed by: [facility] [id number] [place] [address] STAS KRAFT MD Blood specimen (specimen) 03/17/2008 10:47 AM CDT 03/17/2008 11:03 AM CDT us Jaime Johnson MD CHEMISTRY ORDERABL ES Final Result Performing Organization Address [facility] de Phone Number INTERFACE SYSTEM Refer to clinic/hospital department [facility] CLIA# [id number] [address] [place] [address] * TRANSGLUTAMINASE IGG ANTIBODY (03/17/2008 10:47 AM CDT) TRANSGLUTAMINASE IGG AB <3 <7 U/mL [facility] Comment: Reference range: <7 U/mL Negative 7-10 U/mL Equivocal >10 U/mL Positive Lab test performed by: [facility] [place] [id number] [place] [address] STAS KRAFT MD Blood specimen (specimen) 03/17/2008 10:47 AM CDT 03/17/2008 11:03 AM CDT Jaime Johnson MD CHEMISTRY ORDERABL ES Final Result Performing Organization Address [facility] Phone Number INTERFACE SYSTEM Refer to clinic/hospital department [facility] CLIA# [id number] [address] [place] [address] documented in this encounter Visit Diagnoses Diagnosis Acute gastric ulcer without mention of hemorrhage, perforation, or obstruction documented in this encounter Care Teams Fish Hatchery Laborer Relationship Specialty Start Date End Date Esme, Shekhar Shields MD PCP - General 10/15/07 06/12/18 documented as of this encounter
--- OUTSIDE RECORDS SUMMARY | 2024-07-31 00:12 | XMS_ITS | Patient Health Summary ---
Author Organization [facility] Address [address] [place] [address] Care Team Providers Care Master Machinist Name Role Phone Armando Robles MD Primary Care Provider [phone] Note from [facility],non-owned Affiliates and Associated Physician Practices is amultiple site organization consisting of ambulatory clinics and hospital sitesin [place], [place], [place] and [place]. This disclosure is being madepursuant to the Care Everywhere program and may not contain all information available regarding this patient. Last updated 18.[facility] Allergies * Latex(rash) * Oxycodone-Acetaminophen(Other) -Low Criticality * Sulfa Drugs * Tetanus Toxoid(Fever) Medications * Be aware that medications may not be up to date on this document. Alwaysverify current medications with the patient. * fluticasone-salmeterol (ADVAIR DISKUS) 100-50 MCG/DOSE inhaler(Started 10/12/2017) as directed * Cetirizine HCl (ZYRTEC PO) once daily * montelukast (SINGULAIR) 10 MG tablet(Started 10/12/2017) 10 mg at bedtime * pregabalin (LYRICA) 150 MG capsule(Started 11/03/2008) Take 150 mg by mouth 2 times daily * traMADol (ULTRAM) 50 MG tablet(Started 11/07/2017) 50 mg nightly as needed * PARoxetine (PAXIL) 30 MG tablet(Started 09/12/2017) 30 mg at bedtime * multivitamin (OPURITY) CHEW tablet once daily * albuterol HFA (PROAIR HFA) 108 (90 BASE) MCG/ACT inhaler(Started 10/12/2017) as directed * Vitamin D, Ergocalciferol, 2000 UNITS CAPS Take by mouth once daily * Acetaminophen (TYLENOL ARTHRITIS PAIN PO) Take 1 tablet by mouth once daily as needed * Omeprazole (PRILOSEC PO) Take by mouth once daily * Ascorbic Acid (VITAMIN C) 100 MG Take 500 mg by mouth 2 times daily * ALPHA LIPOIC ACID PO Take by mouth 2 times daily * niacin CR (SLO-NIACIN) 500 MG tablet Take 500 mg by mouth at bedtime * cromolyn (NASALCROM) 5.2 MG/ACT nasal spray(Started 07/10/2018) [place] 1 spray into each nostril 4 times daily 1 refill remaining * gabapentin (NEURONTIN) 300 MG capsule(Started 08/14/2018) Take 1 capsule by mouth 3 times daily 3 refills remaining Active Problems Problem Noted Date Diagnosed Date [...] Comments Blood Pressure 117/85 07/10/2018 12:21 PM GUIDANCE CONSULTANT Pulse 81 07/10/2018 12:21 PM GUIDANCE CONSULTANT Temperature 36.4 C (97.6 F) 08/18/2015 12:38 PM CDT Respiratory Rate - - Oxygen Saturation - - Inhaled Oxygen Concentration - - Weight 81.6 kg (180 lb) 07/10/2018 12:21 PM GUIDANCE CONSULTANT Height 167.6 cm (5' 6 ) 07/10/2018 12:21 PM GUIDANCE CONSULTANT Body Mass Index 29.05 07/10/2018 12:21 PM GUIDANCE CONSULTANT Procedures * MRI THORACIC SPINE WWO CONT(Performed 09/10/2015) * MRI CERVICAL SPINE WWO CONT(Performed 09/10/2015) * CREATININE BLOOD - POCT (IP) [facility](Performed 09/10/2015) * MRI SHOULDER RIGHT W CONTRAST(Performed 05/07/2011) Performed for Pain in joint, shoulder region * FL SHOULDER RIGHT ARTHROGRAM(Performed 05/07/2011) Performed for Labral tear of shoulder * XR ANKLE BILAT 3VW OR MORE(Performed 01/27/2010) Performed for Ankle Pain * MRI FOOT RIGHT WO CONTRAST(Performed 01/27/2010) Performed for Foot Pain, Foot Fracture Results * MRI THORACIC SPINE WWO CONT (09/10/2015 9:57 AM CDT) Anatomical Region Laterality Modality Spine Other Impressions 09/10/2015 2:18 PM CDT IMPRESSION: 1. Normal cervical spine MRI. 2. Degenerative the disc disease at T10-T11 and T11-T12. At T10-T11, there is a left paracentral disc protrusion, measuring up to 5 mm in the AP diameter, resulting in mild to moderate central canal stenosis and mild deformity of the ventral surface of the spinal cord. At T11-T12, there is a disc extrusion measuring up to 6.5 mm in AP diameter, resulting in moderate to severe central canal stenosis and flattening deformity of the conus medullaris. This report was electronically signed by MIRYAM MCFARLANE M.D. on 09/10/2015 2:18 PM . Narrative 09/10/2015 2:18 PM CDT EXAMINATION: Cervical, thoracic spine MRI without and with contrast. HISTORY: multiple complaints, brisk reflexes, query myelopathy TECHNIQUE: Multiplanar multisequence MR imaging of the cervical, thoracic spine was performed without and with 7 mL Gadavist intravenous contrast according to a standard protocol. Comparison: None available. FINDINGS: Cervical spine: The alignment of the cervical spine is normal. The vertebral heights are normal. Bone marrow signal intensity is normal on all sequences. No fracture or dislocation is identified although CT is more sensitive for detecting fractures. The cervical spinal cord demonstrates normal caliber and signal intensity. The intervertebral disc space are normal. Prevertebral soft tissues normal in thickness. No abnormal enhancement is identified. The visualized portions of the posterior fossa are normal. There is normal flow voids in the distal vertebral arteries. The upper airway is patent. No soft tissue abnormalities are identified. [ ] Thoracic spine: The alignment of the thoracic spine is normal. The vertebral heights are normal with no compression fractures. 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 Multilevel degenerative the disc disease is noted in the lower thoracic spine. At T10-T11, there is a left paracentral disc protrusion, measuring up to 5 mm in the AP diameter, resulting in mild to moderate central canal stenosis and mild deformity of the ventral surface of the spinal cord. At T11-T12, there is a disc extrusion measuring up to 6.5 mm in AP diameter, resulting in moderate to severe central canal stenosis and flattening deformity of this conus medullaris. No abnormal enhancement is identified. The central canal at other levels and a the neuroforamen are patent. The conus medullaris terminates at L1. Prevertebral soft tissues and paraspinal muscles are normal in thickness. The visualized portions of the descending aorta demonstrate normal caliber. Procedure Note Miryam Mcfarlane MD - 08/17/2017 EXAMINATION: Cervical, thoracic spine MRI without and with contrast. HISTORY: multiple complaints, brisk reflexes, query myelopathy TECHNIQUE: Multiplanar multisequence MR imaging of the cervical, thoracicspine was performed without and with 7 mL Gadavist intravenous contrastaccording to a standard protocol. Comparison: None available. FINDINGS: Cervical spine: The alignment of the cervical spine is normal. The vertebral heights arenormal. Bone marrow signal intensity is normal on all sequences. Nofracture or dislocation is identified although CT is more sensitive fordetecting fractures. The cervical spinal cord demonstrates normal caliber and signal intensity. The intervertebraldisc space are normal. Prevertebral soft tissues normal in thickness. Noabnormal enhancement is identified. The visualized portions of the posterior fossa are normal. There is normalflow voids in the distal vertebral arteries. The upper airway is patent.No soft tissue abnormalities are identified. [ ] Thoracic spine: The alignment of the thoracic spine is normal. The vertebral heights arenormal with no compression fractures. Other than a hemangioma in thevertebral body of T11 bone marrow demonstrates normal signal intensity onall sequences. Multilevel degenerative the disc disease is noted in the lower thoracicspine. At T10-T11, there is a left paracentral disc protrusion, measuringup to 5 mm in the AP diameter, resulting in mild to moderate central canalstenosis and mild deformity of the ventral surface of the spinal cord. At T11-T12, there is a discextrusion measuring up to 6.5 mm in AP diameter, resulting in moderate tosevere central canal stenosis and flattening deformity of this conusmedullaris. No abnormal enhancement is identified. The central canal at other levels and a the neuroforamen arepatent. The conus medullaris terminates at L1. Prevertebral soft tissues and paraspinal muscles are normal in thickness.The visualized portions of the descending aorta demonstrate normalcaliber. IMPRESSION IMPRESSION: 1. Normal cervical spine MRI. 2. Degenerative the disc disease at T10-T11 and T11-T12. At T10-T11, thereis a left paracentral disc protrusion, measuring up to 5 mm in the APdiameter, resulting in mild to moderate central canal stenosis and milddeformity of the ventral surface of the spinal cord. At T11-T12, there is a disc extrusion measuring up to 6.5mm in AP diameter, resulting in moderate to severe central canal stenosisand flattening deformity of the conus medullaris. This report was electronically signed by MIRYAM MCFARLANE M.D. on 09/10/20152:18 PM . Historical Provider MR ORDERABLES * MRI CERVICAL SPINE WWO CONT (09/10/2015 9:56 AM CDT) Anatomical Region Laterality Modality Spine Other Impressions 09/10/2015 2:14 PM CDT IMPRESSION: 1. Normal cervical spine MRI. 2. Degenerative the disc disease at T10-T11 and T11-T12. At T10-T11, there is a left paracentral disc protrusion, measuring up to 5 mm in the AP diameter, resulting in mild to moderate central canal stenosis and mild deformity of the ventral surface of the spinal cord. At T11-T12, there is a disc extrusion measuring up to 6.5 mm in AP diameter, resulting in moderate to severe central canal stenosis and flattening deformity of the conus medullaris. This report was electronically signed by MIRYAM MCFARLANE M.D. on 09/10/2015 2:14 PM . Narrative 09/10/2015 2:14 PM CDT EXAMINATION: Cervical, thoracic spine MRI without and with contrast. HISTORY: multiple complaints, brisk reflexes, query myelopathy TECHNIQUE: Multiplanar multisequence MR imaging of the cervical, thoracic spine was performed without and with 7 mL Gadavist intravenous contrast according to a standard protocol. Comparison: None available. FINDINGS: Cervical spine: The alignment of the cervical spine is normal. The vertebral heights are normal. Bone marrow signal intensity is normal on all sequences. No fracture or dislocation is identified although CT is more sensitive for detecting fractures. The cervical spinal cord demonstrates normal caliber and signal intensity. The intervertebral disc space are normal. Prevertebral soft tissues normal in thickness. No abnormal enhancement is identified. The visualized portions of the posterior fossa are normal. There is normal flow voids in the distal vertebral arteries. The upper airway is patent. No soft tissue abnormalities are identified. [ ] Thoracic spine: The alignment of the thoracic spine is normal. The vertebral heights are normal with no compression fractures. 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 Multilevel degenerative the disc disease is noted in the lower thoracic spine. At T10-T11, there is a left paracentral disc protrusion, measuring up to 5 mm in the AP diameter, resulting in mild to moderate central canal stenosis and mild deformity of the ventral surface of the spinal cord. At T11-T12, there is a disc extrusion measuring up to 6.5 mm in AP diameter, resulting in moderate to severe central canal stenosis and flattening deformity of this conus medullaris. No abnormal enhancement is identified. The central canal at other levels and a the neuroforamen are patent. The conus medullaris terminates at L1. Prevertebral soft tissues and paraspinal muscles are normal in thickness. The visualized portions of the descending aorta demonstrate normal caliber. Procedure Note Miryam Mcfarlane MD - 08/17/2017 EXAMINATION: Cervical, thoracic spine MRI without and with contrast. HISTORY: multiple complaints, brisk reflexes, query myelopathy TECHNIQUE: Multiplanar multisequence MR imaging of the cervical, thoracicspine was performed without and with 7 mL Gadavist intravenous contrastaccording to a standard protocol. Comparison: None available. FINDINGS: Cervical spine: The alignment of the cervical spine is normal. The vertebral heights arenormal. Bone marrow signal intensity is normal on all sequences. Nofracture or dislocation is identified although CT is more sensitive fordetecting fractures. The cervical spinal cord demonstrates normal caliber and signal intensity. The intervertebraldisc space are normal. Prevertebral soft tissues normal in thickness. Noabnormal enhancement is identified. The visualized portions of the posterior fossa are normal. There is normalflow voids in the distal vertebral arteries. The upper airway is patent.No soft tissue abnormalities are identified. [ ] Thoracic spine: The alignment of the thoracic spine is normal. The vertebral heights arenormal with no compression fractures. Other than a hemangioma in thevertebral body of T11 bone marrow demonstrates normal signal intensity onall sequences. Multilevel degenerative the disc disease is noted in the lower thoracicspine. At T10-T11, there is a left paracentral disc protrusion, measuringup to 5 mm in the AP diameter, resulting in mild to moderate central canalstenosis and mild deformity of the ventral surface of the spinal cord. At T11-T12, there is a discextrusion measuring up to 6.5 mm in AP diameter, resulting in moderate tosevere central canal stenosis and flattening deformity of this conusmedullaris. No abnormal enhancement is identified. The central canal at other levels and a the neuroforamen arepatent. The conus medullaris terminates at L1. Prevertebral soft tissues and paraspinal muscles are normal in thickness.The visualized portions of the descending aorta demonstrate normalcaliber. IMPRESSION IMPRESSION: 1. Normal cervical spine MRI. 2. Degenerative the disc disease at T10-T11 and T11-T12. At T10-T11, thereis a left paracentral disc protrusion, measuring up to 5 mm in the APdiameter, resulting in mild to moderate central canal stenosis and milddeformity of the ventral surface of the spinal cord. At T11-T12, there is a disc extrusion measuring up to 6.5mm in AP diameter, resulting in moderate to severe central canal stenosisand flattening deformity of the conus medullaris. This report was electronically signed by MIRYAM MCFARLANE M.D. on 09/10/20152:14 PM . Historical Provider MR ORDERABLES * CREATININE BLOOD - POCT (IP) [facility] (09/10/2015) Creatinine POCT 0.89 0.3 - 1.3 mg/dL [facility] eGFR POCT 60 60 ml/min [facility] 09/10/2015 Historical Provider LAB - [facility] RE ORDERABLES [facility] * MRI RIGHT SHOULDER ARTHROGRAM (05/07/2011 11:11 AM GUIDANCE CONSULTANT) Anatomical Region Laterality Modality Magnetic Resonan ce 05/07/2011 4:31 PM GUIDANCE CONSULTANT Narrative 05/07/2011 4:31 PM GUIDANCE CONSULTANT Examination: MRI right shoulder with intraarticular gadolinium. Indication for examination: Right shoulder pain and reduced range of motion. Multiple T1 and T2 weighted images of the right shoulder are obtained following intraarticular administration of dilute gadolinium. Findings: Examination of the rotator cuff reveals no discrete rotator cuff tear. No definite impingement is identified. There is a relatively flat glenoid. There is mild blunting of the posterior glenoid labrum although no focal glenoid labral tear is identified. Tendon of the long head of the biceps is intact as is the subscapularis. There is no fracture or bone marrow edema. There is no soft tissue mass. CONCLUSION: Relatively flat glenoid labrum. Clinical correlation for possibility of multiangle instability suggested. No focal glenoid labral tear identified. No rotator cuff tear or significant impingement identified on the basis of this examination. Procedure Note Mir Davison MD - 05/07/2011 Examination: MRI right shoulder with intraarticular gadolinium. Indication for examination: Right shoulder pain and reduced range of motion. Multiple T1 and T2 weighted images of the right shoulder are obtained following intraarticular administration of dilute gadolinium. Findings: Examination of the rotator cuff reveals no discrete rotator cuff tear. No definite impingement is identified. There is a relatively flat glenoid. There is mild blunting of the posterior glenoid labrum although no focal glenoid labral tear is identified. Tendon of the long head of the biceps is intact as is the subscapularis. There is no fracture or bone marrow edema. There is no soft tissue mass. CONCLUSION: Relatively flat glenoid labrum. Clinical correlation for possibility of multiangle instability suggested. No focal glenoid labral tear identified. No rotator cuff tear or significant impingement identified on the basis of this examination. Husam Wilson MD MR ORDERABLES * FL ARTHROGRAM SHOULDER RIGHT (05/07/2011 10:18 AM GUIDANCE CONSULTANT) Anatomical Region Laterality Modality Upper Extremity Radiographic Ellen ging 05/07/2011 4:55 PM GUIDANCE CONSULTANT Narrative 05/07/2011 4:55 PM GUIDANCE CONSULTANT Examination: Right shoulder arthrogram. Indication for examination: Right shoulder pain and reduced range of motion. This procedure was performed in the radiology department by Dr. Davison. After explanation of the procedure and routine skin prep, a 22-gauge spinal needle was placed into the right glenohumeral joint under fluoroscopic control. An anterior approach was chosen. A small amount of iodinated contrast was injected to confirm intra-articular needle placement. After this, 15 mL of dilute gadolinium were injected. Spot films were obtained. She tolerated the procedure well without apparent immediate complication. CONCLUSION: Right shoulder arthrogram performed in the radiology department by Dr. Davison as described. Procedure Note Mir Davison MD - 05/07/2011 Examination: Right shoulder arthrogram. Indication for examination: Right shoulder pain and reduced range of motion. This procedure was performed in the radiology department by Dr. Davison. After explanation of the procedure and routine skin prep, a 22-gauge spinal needle was placed into the right glenohumeral joint under fluoroscopic control. An anterior approach was chosen. A small amount of iodinated contrast was injected to confirm intra-articular needle placement. After this, 15 mL of dilute gadolinium were injected. Spot films were obtained. She tolerated the procedure well without apparent immediate complication. CONCLUSION: Right shoulder arthrogram performed in the radiology department by Dr. Davison as described. Husam Wilson MD FLUOROSCOPY ORDERABL ES * XR ANKLE BILAT MIN 3 VIEWS (01/27/2010 1:46 PM CDT) Anatomical Region Laterality Modality Ankle / Foot, Lower Extremity Ra diographic Imaging 01/27/2010 3:29 PM CDT Impressions 01/27/2010 3:45 PM CDT No fracture. Possible accessory ossicle from the right navicular. Narrative 01/27/2010 3:45 PM CDT EXAM: BILATERAL ANKLES (THREE VIEWS) INDICATION: Bilateral ankle pain. FINDINGS: Three views of each of the ankles are provided. There is no acute fracture, dislocation or destructive lesion. The talar dome appears intact. There is mild midfoot degenerative change bilaterally with possibility of a small accessory ossicle at the right navicular. No definite soft tissue focal swelling is identified. Procedure Note Rhonda Hair MD - 01/27/2010 EXAM: BILATERAL ANKLES (THREE VIEWS) INDICATION: Bilateral ankle pain. FINDINGS: Three views of each of the ankles are provided. There is no acute fracture, dislocation or destructive lesion. The talar dome appears intact. There is mild midfoot degenerative change bilaterally with possibility of a small accessory ossicle at the right navicular. No definite soft tissue focal swelling is identified. IMPRESSION No fracture. Possible accessory ossicle from the right navicular. Huasm Wilson MD DIAGNOSTIC IMAGING O RDERABLES * MRI FOOT NON IV CONTRAST RIGHT (01/27/2010 1:29 PM CDT) Anatomical Region Laterality Modality Magnetic Resonan ce 01/27/2010 4:11 PM CDT Narrative 01/27/2010 4:11 PM CDT Examination: MRI right foot. Indication for examination: Right foot pain. Trauma. Stress fracture. Noncontrast T1 and T2-weighted sagittal, axial and coronal images of the right foot are obtained. The skin marker was placed over the area of clinical concern at the dorsal forefoot as directed by the patient. Examination of the bony structures reveals grossly normal bone marrow signal intensity. No fracture or bone marrow edema is identified. There is no specific indication of stress fracture. There is mild hypertrophic change first MTP joint. There is no erosive arthritis. There is no specific suspicious bone marrow replacement process. There is no pathologic joint effusion. No focal tendon or ligamentous tear is identified on the basis of this examination. There is no soft tissue mass or loculated fluid collection. CONCLUSION: No fracture, bone marrow edema or bone marrow replacement process identified. No soft tissue mass or fluid collection. No focal superficial or deep soft tissue edema. No joint effusion. No acute abnormality identified. Procedure Note Mir Davison MD - 01/27/2010 Examination: MRI right foot. Indication for examination: Right foot pain. Trauma. Stress fracture. Noncontrast T1 and T2-weighted sagittal, axial and coronal images of the right foot are obtained. The skin marker was placed over the area of clinical concern at the dorsal forefoot as directed by the patient. Examination of the bony structures reveals grossly normal bone marrow signal intensity. No fracture or bone marrow edema is identified. There is no specific indication of stress fracture. There is mild hypertrophic change first MTP joint. There is no erosive arthritis. There is no specific suspicious bone marrow replacement process. There is no pathologic joint effusion. No focal tendon or ligamentous tear is identified on the basis of this examination. There is no soft tissue mass or loculated fluid collection. CONCLUSION: No fracture, bone marrow edema or bone marrow replacement process identified. No soft tissue mass or fluid collection. No focal superficial or deep soft tissue edema. No joint effusion. No acute abnormality identified. Husam Wilson MD MR ORDERABLES Care Teams Master Machinist Relationship Specialty Start Date End Date Armando Robles MD [address] [place] [address] PCP - General Family Medicine 07/10/18
--- OUTSIDE RECORDS SUMMARY | 2024-07-31 00:12 | XMS_ITS | Encounter Summary ---
Author Organization [facility] Address [address] [place] [address] Care Team Providers Care Trauma Coordinator Name Role Phone Armando Robles MD Primary Care Provider [phone] Carie Ferris MD Unavailable [phone] Jaime Johnson MD Unavailable Elizabeth Araiza MD Unavailable [phone] Saniya Doe MD Unavailable Giovani Zaldivar MD Unavailable Encounter Details Date Type Department Care Team (Late st Contact Info) Description 11/24/2021 Prep for Procedure [facility] [place] [address] Rosy Galan MD [address] [place] [address] Social History Tobacco Use Types Packs/Day Years Used Date Smoking Tobacco: Never Smokeless Tobacco: Never Alcohol Use Standard Drinks/Week Comments No 0 (1 standard drink = 0.6 oz pur e alcohol) 1x/week AUDIT-C Answer Date Recorded Frequency of Alcohol Consumption Never 04/07/2019 Average Number of Drinks Not on file 019 Frequency of Binge Drinking Not on file 03/20 Comments No Sex and Gender Information Value Date Recorded Sex Assigned at Not on file Legal Sex Female 4:04 PM CDT Gender Identity Not on file Sexual Orientation Not on file COVID-19 Exposure Response Date Recorded In the last 10 days, have yo u been in contact with someone who was confirmed or suspected to have Coronavirus/COVID-19? No / Unsure 11/24/2021 3:43 PM CDT documented as of this encounter Plan of Treatment Not on file documented as of this encounter Results * CBC W/DIFF AUTOMATED (11/25/2021 11:43 AM CDT) WBC 5.6 4.5 - 11.0 x10'3/uL 11/25/2021 12:18 PM CDT [facility] RBC 4.49 4.20 - 5.40 x10'6/uL 11/25/2021 12:18 PM CDT [facility] HGB 13.5 12.0 - 16.0 G/DL 11/25/2021 12:18 PM CDT [facility] HCT 39.4 38.0 - 48.0 % 11/25/2021 12:18 PM CDT [facility] MCV 87.8 81.0 - 99.0 FL 11/25/2021 12:18 PM CDT [facility] MCH 30.1 27.0 - 31.0 PG 11/25/2021 12:18 PM CDT [facility] MCHC 34.3 32.0 - 36.0 G/DL 11/25/2021 12:18 PM CDT [facility] RDW 12.3 11.5 - 14.5 % 11/25/2021 12:18 PM CDT [facility] PLT 216 130 - 400 x10'3/uL 11/25/2021 12:18 PM CDT [facility] MPV 9.3 9.3 - 12.2 FL 11/25/2021 12:18 PM CDT [facility] DIFFERENTIAL TYPE AUTOMATED DIFFERENTIAL 11/25/2021 12:18 PM CDT [facility] NEUTROPHILS % 59.4 % 11/25/2021 12:18 PM CDT [facility] LYMPHOCYTES % 28.2 % 11/25/2021 12:18 PM CDT [facility] MONOCYTES % 6.2 % 11/25/2021 12:18 PM CDT [facility] EOSINOPHILS 5.2 % 11/25/2021 12:18 PM CDT [facility] BASOPHILS 0.5 % 11/25/2021 12:18 PM CDT [facility] IMMATURE GRANS % 0.5 % 11/26/19 12:18 PM CDT [facility] ABS. NEUTROPHILS TOTAL 3.34 1.80 - 7.70 x10'3/uL 11/25/2021 12:18 PM CDT [facility] ABS. LYMPHOCYTES 1.59 1.00 - 4.80 x10'3/uL 11/25/2021 12:18 PM CDT [facility] ABS. MONOCYTES 0.35 0.24 - 0.86 x10'3/uL 11/25/2021 12:18 PM CDT [facility] ABS. EOSINOPHILS 0.29 0.04 - 0.36 x10'3/uL 11/25/2021 12:18 PM CDT [facility] ABS. BASOPHILS 0.03 0.01 - 0.08 x10'3/uL 11/25/2021 12:18 PM T [facility] ABS. IMMATURE GRANULOCYTES 0.03 0.00 - 0.49 x10'3/uL 11/25/2021 12:18 PM T [facility] 11/25/2021 11:4 3 AM CDT Rosy Galan MD LABORATORY Final Result [facility] [address] [place] [address], [place] [phone] * TYPE & SCREEN (11/25/2021 11:43 AM CDT) ABO/RH O POSITIVE 11/25/2021 4:37 PM CDT [facility] ANTIBODY SCREEN NEGATIVE 11/25/2021 4:37 PM CDT [facility] SAMPLE EXPIRATION 12/02/2021,2 359 11/29/2021 7:14 AM CDT [facility] COMMENT NO HISTORY OF TRANSFUSIONS , OR ANTIBODIES, NEW SPECIMEN NOT NEEDED 11/29/2021 7:14 AM CDT [facility] 11/25/2021 11:4 3 AM CDT Rosy Galan MD BLOOD BANK TEST ORDERABLES Final Result Performing Organization Address City/[facility] Co de Phone Number [facility] [address] [place] [address], [place] [phone] documented in this encounter Visit Diagnoses Diagnosis Fibroid- Primary Leiomyoma of uterus, unspecified documented in this encounter Care Teams Trauma Coordinator Relationship Specialty Start Date End Date Armando Robles MD [address] [place] [address] PCP - General FAMILY PRACTICE 04/03/19 Carie Ferris MD [address] [place] [phone] ALLERGY/IMMUNOLOGY 04/03/19 Jaime Johnson MD [address] [facility] [place] [address] INTERNAL MEDICINE 04/03/19 Elizabeth Araiza MD [address] [facility] [address] [place] [phone] NEUROLOGY 04/03/19 Saniya Doe MD [address] [facility] [address] [place] [address] INTERNAL MEDICINE 04/03/19 Giovani Zaldivar MD [facility] [place] [address] Referring Physician OTOLARYNGOLOGY 04/07/19 documented as of this encounter
--- OUTSIDE RECORDS SUMMARY | 2024-07-31 00:12 | XMS_ITS | Encounter Summary ---
Author Organization [facility] Address [address] [place] [address] Care Team Providers Care Associate Material Handler Name Role Phone Shekhar Victoria MD Primary Care Provider [phone] Encounter Details Date Type Department Care Team (Late st Contact Info) Description 03/17/2001 Outpatient Historical [address] [place] [address] Husam Shea MD Social History Tobacco Use Types Packs/Day Years Used Date Smoking Tobacco: Never Assessed Comments Unknown Sex and Gender Information Value Date Recorded Sex Assigned at Not on file Legal Sex Female 4:51 AM BRANCH CONTROLLER Gender Identity Not on file Sexual Orientation Not on file documented as of this encounter Plan of Treatment Not on file documented as of this encounter Visit Diagnoses Not on filedocumented in this encounter Care Teams Associate Material Handler Relationship Specialty Start Date End Date Shekhar Victoria MD PCP - General 10/15/07 06/12/18 documented as of this encounter
--- OUTSIDE RECORDS SUMMARY | 2024-07-31 00:12 | XMS_ITS | Encounter Summary ---
Author Organization [facility] Address [address] [place] [address] Care Team Providers Care Baccarat Dealer Name Role Phone Shekhar Victoria MD Primary Care Provider [phone] Encounter Details Date Type Department Care Team (Late st Contact Info) Description 09/13/1999 Outpatient Historical [address] [place] [address] Husam Shea MD Social History Tobacco Use Types Packs/Day Years Used Date Smoking Tobacco: Never Assessed Comments Unknown Sex and Gender Information Value Date Recorded Sex Assigned at Not on file Legal Sex Female 4:51 AM CRADLE SLIDE MAKER Gender Identity Not on file Sexual Orientation Not on file documented as of this encounter Plan of Treatment Not on file documented as of this encounter Visit Diagnoses Not on filedocumented in this encounter Care Teams Baccarat Dealer Relationship Specialty Start Date End Date Shekhar Victoria MD PCP - General 10/15/07 06/12/18 documented as of this encounter
--- OUTSIDE RECORDS SUMMARY | 2024-07-31 00:12 | XMS_ITS | Clinical Summary ---
Author Organization [facility] Address [address] [place] [address] Care Team Providers Care Neonatal Icu Coordinator Name Role Phone Armando Robles MD Primary Care Provider [phone] Allergies Active Allergy Reactions Criticality Noted Date [...] capsule Take by mouth daily Active iron,carbonyl-F [id number]-iev (OPURITY MULTIVITAMIN) 30 mg iron- 800 mcg [...] 023 Assessment & Plan (05/06/2023 6:01 PM WINDOW SHADE CLOTH SEWER): VSS, NAD, lungs CTAB, significant coughing noted [...] 05/06/2023 Assessment & Plan (05/06/2023 6:02 PM WINDOW SHADE CLOTH SEWER): VSS, NAD, lungs CTAB, significant coughing noted [...] breast 02/10/2014 Reactive depression 02/10/2014 Fibromyalgia 02/10/2014 Surgical History Surgery Date Site/Laterality Comments SINUS SURGERY Sinus Surgery - cyst removed 1995 (Added by TW Conv) AR LAPS ABD PRTM&OMENTUM DX W/WO SPEC BR/WA SPX Laparoscopy (Diagnostic) - Endometosis (Added by TW Conv) AR UNLISTED PROCEDURE DENTOALVEOLAR STRUCTURES Oral Surgery Tooth Extraction - (Added by TW Conv) AR MYOMECTOMY 1-4 MYOMAS W/2 50 GM/< ABDOMINAL APPR Uterine Myomectomy - (Added by TW Conv) Medical History Medical History Date Comments Personal history of other di seases of the respiratory system History of asthma - (Added b y TW Conv) History of recurrent pneumonia H istory of pneumonia - (Added by TW Conv) Personal history of urinary calculi History of kidney stones - (Added by TW Conv) Personal history of other di seases of the circulatory system History of cardiac murmur - (Added by TW Conv) Personal history of other me ntal and behavioral disorders History of anxiety - (Added by TW Conv) Personal history of diseases of the blood and blood-forming organs and certain disorders involving the immune mechanism History of an emia - (Added by TW Conv) Personal history of other di seases of the digestive system History of IBS - (Added by T W Conv) Personal history of other di seases of the digestive system History of gastric ulcer - ( Added by TW Conv) Family History Medical History Relation Name Comments Fibromyalgia Cousin Family history of fibromyalgia - (Added by TW Conv) Diabetes Father Family history of diabetes mellitus - (Added by TW Conv) Heart disease Father Family history of heart disease - (Added by TW Conv) Migraines Father Family history of migraine headaches - (Added by TW Conv) Stroke Maternal Grandfather Family history of stroke - (Added by TW Conv) Skin cancer Maternal Grandmother Family history of skin cancer - (Added by TW Conv) Breast cancer Mother's Sister Family hist ory of malignant neoplasm of breast - DX in 50's (Added by TW Conv) Diabetes Paternal Grandfather Family history of diabetes mellitus - (Added by TW Conv) Skin cancer Paternal Grandfather Family history of skin cancer - (Added by TW Conv) Diabetes Paternal Grandmother Family history of diabetes mellitus - (Added by TW Conv) Stroke Paternal Grandmother Family history of stroke - (Added by TW Conv) Relation Name Status Comments Cousin Father Maternal Grandfather Maternal Grandmother Mother's Sister Paternal Grandfather Paternal Grandmother Social History Tobacco Use Types Packs/Day Years Used Date Smoking Tobacco: Never Tobacco Cessation:Counseling Given: Yes Personal Safety Answer Date Recorded Getting School Help Needed Not on file 05/05 Comments Unknown Sex and Gender Information Value Date Recorded Sex Assigned at Not on file Legal Sex Female 3:58 AM WINDOW SHADE CLOTH SEWER Gender Identity Not on file Sexual Orientation Not on file Obstetrics History Last Filed Vital Signs Vital Sign Reading Time Taken Comments Blood Pressure 128/82 05/06/2023 5:16 PM WINDOW SHADE CLOTH SEWER Pulse 60 05/06/2023 5:16 PM WINDOW SHADE CLOTH SEWER Temperature 36.8 C (98.3 F) 05/06/2023 5:16 PM WINDOW SHADE CLOTH SEWER Respiratory Rate 20 05/06/2023 5:16 PM WINDOW SHADE CLOTH SEWER Oxygen Saturation 99% 05/06/2023 5:16 PM WINDOW SHADE CLOTH SEWER Inhaled Oxygen Concentration - - Weight 83 kg (183 lb) 02/23/2019 10:09 AM CDT Height 167.6 cm (5' 6 ) 02/23/2019 10:09 AM CDT Body Mass Index 29.54 02/23/2019 10:09 AM CDT Plan of Treatment Health Maintenance Due Date Last Done Comments Cervical Cancer Screening 1978 Colon Cancer Screening-Colonoscopy 1978 Depression Screening 1978 Hepatitis C Screening 1978 DTaP/Tdap/Td Vaccine (1 - Tdap) 1989 Hepatitis B Screening 1996 Regular Well Visit/Exam 18-64 1996 Pneumococcal vaccine <65 (1 of 2 - PCV) 1997 Breast Cancer Screening-Mammogram 08/09/2023 08/08/2022, 06/15/2021, 07/06/2015, Additional history exists Covid-19 Vaccine ( - season) 2024 02/18/2021, 07/30/2020, 07/09/2020 Influenza Vaccine (#1) 2024 8, 03/16/2017, 02/15/2016, Additional history exists HPV Vaccines Aged Out No longer eligi ble based on patient's age to complete this topic Procedures Procedure Name Priority Date/Time Associated Diagnosis [...] LEFT breast which has been stable since 2013, and has undergone biopsy. No new mass, suspicious calcifications or distortion within EITHER breast is seen to suggest malignancy. Procedure Note Emilee Dejeuss MD - 08/08/2022 EXAMINATION: BILATERAL DIGITAL DIAGNOSTIC [...] signed by: Emilee Dejesus M.D. Shaunna Kennedy NP IMG MAMMO PROCEDURES Final Result from Last 3 Months or Most Recently Relevant to Health Maintenance Insurance [employer] OPEN ACCESS ANTHEM ACCESS CHOICE [facility] CHOICE PLUS [employer] OPEN ACCESS Care Teams Neonatal Icu Coordinator Relationship Specialty Start Date End Date Armando Robles MD PCP - General 06/22/15
--- OUTSIDE RECORDS SUMMARY | 2024-07-31 00:12 | XMS_ITS | Encounter Summary ---
Author Organization [facility] Address [address] [place] [address] Care Team Providers Care Housing Counselor Name Role Phone Shekhar Victoria MD Primary Care Provider [phone] Encounter Details Date Type Department Care Team (Late st Contact Info) Description 07/14/2007 Outpatient Historical [facility] Internal Medicine - [place] [address] [place] [address] [place] [address] [facility] [address] [place] [address] Social History Tobacco Use Types Packs/Day Years Used Date Smoking Tobacco: Never Assessed Comments Unknown Sex and Gender Information Value Date Recorded Sex Assigned at Not on file Legal Sex Female 4:51 AM BODY SHOP FLOORPERSON Gender Identity Not on file Sexual Orientation Not on file documented as of this encounter Plan of Treatment Not on file documented as of this encounter Visit Diagnoses Not on filedocumented in this encounter Care Teams Housing Counselor Relationship Specialty Start Date End Date Shekhar Victoria MD PCP - General 10/15/07 06/12/18 documented as of this encounter
--- OUTSIDE RECORDS SUMMARY | 2024-07-31 00:12 | XMS_ITS | Encounter Summary ---
Author Organization [facility] Address [address] [place] [address] Care Team Providers Care Landscape Laborer Name Role Phone Shekhar Victoria MD Primary Care Provider [phone] Encounter Details Date Type Department Care Team (Latest Contact Info) Description 02/27/2008 Outpatient Historical [facility] [place] [address] [place] [address] Hematuria, Unspecified Social History Tobacco Use Types Packs/Day Years Used Date Smoking Tobacco: Never Assessed Comments No Sex and Gender Information Value Date Recorded Sex Assigned at Not on file Legal Sex Female 4:51 AM IT PROGRAM ENGAGEMENT DIRECTOR Gender Identity Not on file Sexual Orientation Not on file documented as of this encounter Plan of Treatment Not on file documented as of this encounter Visit Diagnoses Diagnosis Hematuria, unspecified documented in this encounter Care Teams Landscape Laborer Relationship Specialty Start Date End Date Shekhar Victoria MD PCP - General 10/15/07 06/12/18 documented as of this encounter
--- OUTSIDE RECORDS SUMMARY | 2024-07-31 00:12 | XMS_ITS | Encounter Summary ---
Author Organization [facility] Address [address] [place] [address] Care Team Providers Care Small Arms Repairer Name Role Phone Shekhar Victoria MD Primary Care Provider [phone] Encounter Details Date Type Department Care Team (Late st Contact Info) Description 02/27/2008 Outpatient Historical [facility] [place] [address] [place] [address] Abdominal Pain, Other Specified Site; Abdominal Pain, Epigastric Social History Tobacco Use Types Packs/Day Years Used Date Smoking Tobacco: Never Assessed Comments No Sex and Gender Information Value Date Recorded Sex Assigned at Not on file Legal Sex Female 4:51 AM MODEL MAKER PLASTIC Gender Identity Not on file Sexual Orientation Not on file documented as of this encounter Plan of Treatment Not on file documented as of this encounter Procedures Procedure Name Priority Date/Time Associated Diagnosis Comments CT ABDOMEN PELVIS WO CONTRAST Timed Study 02/27/2008 1:34 PM CDT documented in this encounter Results * CT ABDOMEN PELVIS WO CONTRAST (02/27/2008 1:34 PM CDT) Anatomical Region Laterality Modality Abdomen Other 02/27/2008 1:34 PM CDT Narrative 03/01/2008 7:54 AM CDT [facility] [address] [place], [place] [address] Admit Date: 02/27/2008 VERA MILES Sex: F Admit Prov: SHEKHAR VICTORIA Date: 1980 Primary Care Prov: SHEKHAR VICTORIA; JABIER, CMRN: [id number] GIOVANNA Shields SSN: [id number] Room: [facility] Ordering Prov: N/A Accession Number: [id number] Interpretation CT ABDOMEN AND PELVIS WITHOUT CONTRAST, 02/27/2008 Indication: Abdominal pain. Technique: Multiple [address] images were acquired without contrast. Findings: Comparison is dated 03/26/2005. Lung bases are normally aerated. The liver, spleen, pancreas, and adrenals are normal. There are numerous small nonobstructing renal stones seen bilaterally. One of the previous 2 mm stones in the upper pole on the right is no longer identified. There is no hydronephrosis. No ureteral or bladder stone is identified. Phleboliths are present within the pelvis, without definite ureteral stone. The bowel is not thickened or dilated. The appendix is identified and is normal in appearance in the right lower quadrant. There is marked thickening of the wall of the gastric fundus, measuring on the order of 1.4 cm in thickness. There appears to be an exophytic soft tissue component with this. There may be associated ulceration within this soft tissue thickening. The overall size of this lesion measures on the order of 7 cm x 4.5 cm in the axial plane. There are also some prominent soft tissue nodules, probably representing lymph nodes inferior to the stomach within the omentum. These measure up to roughly 1.5 cm. The urinary bladder is mildly distended with fluid. The uterus and adnexa appears to be within normal limits. Impression: 1. Prominent gastric wall thickening with apparent exophytic soft tissue mass and possible ulceration. Direct visualization is recommended. Consideration would include neoplastic process such as lymphoma. Inflammatory processes could also be considered. 2. Bilateral nephrolithiasis. . Dictated by: MARCELO RASHID 02/27/2008 14:56 Electronically signed by: MARCELO RASHID 03/01/2008 07:53 Transcribed: 02/27/2008 16:00 [facility] Procedure Note Marcelo Rashid - 03/01/2008 [place] [id number] [place], [place] [address] Admit Date: 02/27/2008 VERA MILES Sex: F Admit Prov: SHEKHAR VICTORIA Date: 1980 Primary Care Prov: SHEKHAR VICTORIA; JABIER, [facility] [id number] GIOVANNA Shields SSN: [id number] Room: MRI-[facility] Ordering Prov: N/A Interpretation CT ABDOMEN AND PELVIS WITHOUT CONTRAST, 02/27/2008 Indication: Abdominal pain. Technique: Multiple [address] images were acquired withoutcontrast. Findings: Comparison is dated 03/26/2005. Lung bases are normally aerated. The liver, spleen, pancreas, andadrenals are normal. There are numerous small nonobstructing renal stonesseen bilaterally. One of the previous 2 mm stones in the upper pole on theright is no longer identified. There is no hydronephrosis. No ureteral orbladder stone is identified. Phleboliths are present within the pelvis,without definite ureteral stone. The bowel is not thickened or dilated. The appendix is identified and is normal in appearance in the rightlower quadrant. There is marked thickening of the wall of the gastric fundus,measuring on the order of 1.4 cm in thickness. There appears to be an exophyticsoft tissue component with this. There may be associated ulceration withinthis soft tissue thickening. The overall size of this lesion measures onthe order of 7 cm x 4.5 cm in the axial plane. There are also someprominent soft tissue nodules, probably representing lymph nodes inferior tothe stomach within the omentum. These measure up to roughly 1.5 cm. The urinary bladder is mildly distended with fluid. The uterus andadnexa appears to be within normal limits. Impression: 1. Prominent gastric wall thickening with apparent exophytic softtissue mass and possible ulceration. Direct visualization is recommended. Consideration would include neoplastic process such as lymphoma. Inflammatory processes could also be considered. 2. Bilateral nephrolithiasis. . Dictated by: MARCELO RASHID 02/27/2008 14:56 Electronically signed by: MARCELO RASHID 03/01/2008 07:53 Transcribed: 02/27/2008 16:00 [facility] Shekhar Victoria MD CT ORDERABLES Final Result documented in this encounter Visit Diagnoses Diagnosis Abdominal pain, other specified site Abdominal pain, epigastric documented in this encounter Care Teams Small Arms Repairer Relationship Specialty Start Date End Date Esme, Shekhar Shields MD PCP - General 10/15/07 06/12/18 documented as of this encounter
--- OUTSIDE RECORDS SUMMARY | 2024-07-31 00:12 | XMS_ITS | Clinical Summary ---
Author Organization [facility] Address [address] [facility] [place] [address] Care Team Providers Care Md Psychiatry Name Role Phone Armando Robles MD Primary Care Provider [phone] Source Comments [facility],non-owned Affiliates and Associated Physician Practices is amultiple site organization consisting of ambulatory clinics and hospital sitesin [place], [place], [place] and [place]. This disclosure is being madepursuant to the Care Everywhere program and may not contain all information available regarding this patient. Last updated 18.[facility] Allergies Active Allergy Reactions Criticality Noted Date [...] Active cromolyn (NASALCROM) 5.2 MG/ACT nasal spray Starks 1 spray into each nostril 4 times daily 1 bottles 1 07/10/2018 Active gabapentin (NEURONTIN) 300 MG capsule Take 1 capsule by mouth 3 times daily 270 capsule 3 08/14/2018 Active Active Problems Problem Noted Date Diagnosed Date Fibromyalgia Anxiety Asthma Hypersomnia, idiopathic Small fiber neuropathy Family History Medical History Relation Name Comments Other Father ND possibly com plicated by DM Other Mother small artery di sease,hyperthyroid Relation Name Status Comments Father Mother Alive Social History Tobacco Use Types Packs/Day Years [...] Comments Blood Pressure 117/85 07/10/2018 12:21 PM SKI TOW OPERATOR Pulse 81 07/10/2018 12:21 PM SKI TOW OPERATOR Temperature 36.4 C (97.6 F) 08/18/2015 12:38 PM CDT Respiratory Rate - - Oxygen Saturation - - Inhaled Oxygen Concentration - - Weight 81.6 kg (180 lb) 07/10/2018 12:21 PM SKI TOW OPERATOR Height 167.6 cm (5' 6 ) 07/10/2018 12:21 PM SKI TOW OPERATOR Body Mass Index 29.05 07/10/2018 12:21 PM SKI TOW OPERATOR Plan of Treatment Health Maintenance Due Date Last Done Comments COLOGUARD (AGES 45-75) - COL ON CA SCREENING 1978 COLON MONITORING 1978 COLONOSCOPY - COLON CA SCREENING 1978 CT COLONOGRAPHY - COLON CA SCREENING 1978 Colorectal Cancer Screening 1978 FIT - COLON CA SCREENING 1978 FLEX SIG - COLON CA SCREENING 1978 LIPID TESTING 1978 MAMMOGRAM 1978 PAP SMEAR 1978 HIV SCREENING 1993 HEPATITIS C SCREENING 10/19/1996 DTAP/TDAP/TD VACCINES (1 - Tdap) 1997 HEPATITIS B VACCINE (1 of 3 - 19+ 3-dose series) 1997 PNEUMOCOCCAL VACCINE (1 of 2 - PCV) 1997 COVID-19 VACCINE (1 - 2023-2 5 season) 2024 INFLUENZA VACCINE (#1) 2024 DEPRESSION SCREENING 05/20/2024 ZOSTER VACCINE (1 of 2) 2028 HIB VACCINE Aged Out No longer eligi ble based on patient's age to complete this topic HPV VACCINE Aged Out No longer eligi ble based on patient's age to complete this topic MENINGOCOCCAL (Group B) VACC INE SHARED DECISION-MAKING Aged Out No longer eligibl e based on patient's age to complete this topic MENINGOCOCCAL GROUPS A/C/Y/W VACCINE Aged Out No longer eligible b ased on patient's age to complete this topic Care Teams Md Psychiatry Relationship Specialty Start Date End Date Armando Robles MD [address] [place] [address] PCP - General Family Medicine 07/10/18
--- OUTSIDE RECORDS SUMMARY | 2024-07-31 00:12 | XMS_ITS | Encounter Summary ---
Author Organization [facility] Address [address] [place] [address] Care Team Providers Care Clinic Charge Nurse Name Role Phone Shekhar Victoria MD Primary Care Provider [phone] Encounter Details Date Type Department Care Team (Late st Contact Info) Description 06/05/2001 Outpatient [address] [place] [id number] Husam Shea MD Social History Tobacco Use Types Packs/Day Years Used Date Smoking Tobacco: Never Assessed Comments Unknown Sex and Gender Information Value Date Recorded Sex Assigned at Not on file Legal Sex Female 4:51 AM SHAPER HAND Gender Identity Not on file Sexual Orientation Not on file documented as of this encounter Plan of Treatment Not on file documented as of this encounter Visit Diagnoses Not on filedocumented in this encounter Care Teams Clinic Charge Nurse Relationship Specialty Start Date End Date Shekhar Victoria MD PCP - General 10/15/07 06/12/18 documented as of this encounter
--- OUTSIDE RECORDS SUMMARY | 2024-07-31 00:12 | XMS_ITS | Clinical Summary ---
Author Organization [facility] Address [address] [place] [address] Care Team Providers Care Remedy Developer Name Role Phone Armando Robles MD Primary Care Provider Carie Ferris MD Unavailable [phone] Jaime Johnson MD Unavailable Elizabeth Araiza MD Unavailable Saniya Doe MD Unavailable Giovani Zaldivar MD Unavailable Allergies Active Allergy Reactions Criticality Noted Date Comments Latex Rash Low 04/03/2019 Oxycodone Hallucinations 04/09/2019 Sulfa Antibiotics Other (see comment) 9 FEVER, VOMITTING Tetanus Toxoids Other (see comment) 04/03/2019 FEVER Medications paroxetine 40 MG tablet Take 40 mg by mouth nightly. Active montelukast 10 MG tablet Take 10 mg by mouth nightly at bedtime. Active Cetirizine HCl 10 MG Cap Take 1 tablet by mouth nightly. Active gabapentin 300 MG capsule Take 300 mg by mouth nightly. Active vitamin D3, cholecalciferol , 1000 UNIT Tab tablet Take 2,000 Units by mouth nightly. Active vitamin C 1000 MG tablet Take 1,000 mg by mouth nightly. Active Multiple Vitamins-Minera ls (MULTIVITAMIN ADULT OR) Take 1 tablet by mouth daily. Active albuterol sulfate HFA 108 (90 Base) MCG/ACT inhaler Inhale 2 puffs into the lungs every 6 (six) hours as needed for Wheezing. Active fluticasone-laron meterol 100-50 MCG/DOSE inhaler Inhale 1-2 puffs into the lungs daily. 10/12/2017 Active Active Problems Problem Noted Date Diagnosed Date Fibroid 11/29/2021 Dysmenorrhea 11/29/2021 Endometriosis 11/29/2021 S/P hysterectomy 11/29/2021 Immunizations Name Administration Dates Next Due PFIZER COVID-19 (ORIGINAL FO RMULATION, PURPLE CAP) mRNA, LNP-S, PF, 30 MCG/0.3 ML DOSE 07/30/2020,07/09/2020 Family History Medical History Relation Comments Diabetes Father Heart Disease Father Hypertension Father Cancer Maternal Aunt breast Cancer Maternal Grandfather pros Dementia Maternal Grandfather Heart Disease Maternal Grandfather mi Stroke Maternal Grandfather cerbral hem orrage Cancer Maternal Grandmother skin Heart Disease Maternal Grandmother Hypertension Maternal Grandmother Asthma Mother Heart Disease Mother Thyroid Mother COPD Paternal Grandfather Cancer Paternal Grandfather skin Diabetes Paternal Grandfather Heart Disease Paternal Grandfather valve repla cement Hypertension Paternal Grandfather Dementia Paternal Grandmother Diabetes Paternal Grandmother Hypertension Paternal Grandmother Relation Status Comments Father (Age 57) Maternal Aunt Maternal Grandfather Maternal Grandmother Mother Alive Paternal Grandfather Paternal Grandmother Social History Tobacco [...] Sign Reading Time Taken Comments Blood Pressure 132/82 11/29/2021 3:15 PM CDT Pulse 100 11/29/2021 3:15 PM CDT Temperature 36.8 C (98.2 F) 11/29/2021 3:15 PM CDT Respiratory Rate 18 11/29/2021 3:15 PM CDT Oxygen Saturation 98% 11/29/2021 3:15 PM CDT Inhaled Oxygen Concentration - - Weight 80.9 kg (178 lb 6.4 oz) 11/29/2021 6:30 A M CDT Height 167.6 cm (5' 6 ) 11/29/2021 6:30 AM CDT Body Mass Index 28.79 11/29/2021 6:30 AM CDT Plan of Treatment Health Maintenance Due Date Last Done Comments Cervical Cancer Screening Pa p Smear (Age 30 to 64) Every 3 Years 1978 Colorectal Cancer Screening Colonoscopy (10 Years) 1978 Annual Physical 1981 Hepatitis C 1996 DTaP, Tdap and Td Vaccines ( 1 - Tdap) 1997 Hepatitis B Vaccines (1 of 3 - 19+ 3-dose series) 1997 Cervical Cancer Screening Pa p with HPV Testing (Age 30 to 64) Every 5 Years 2008 Cervical Cancer Screening [facility] HPV 2008 Mammogram Screening 2018 COVID-19 Vaccine (2023-2 5 season) 2024 02/18/2021, 07/30/2020, 07/09/2020 Influenza Adult (#1) 2024 03/16/2017, 04/23/2011 HPV Vaccines Aged Out No longer eligi ble based on patient's age to complete this topic Meningococcal B Vaccine Aged Out No l onger eligible based on patient's age to complete this topic Meningococcal Vaccine Aged Out No vladimir shelley eligible based on patient's age to complete this topic Pneumococcal Vaccine: Pediatrics (0 to 5 Years) and At-Risk Patients (6 to 64 Years) Aged Out No longer eligible b ased on patient's age to complete this topic RSV Immunizations Under 20 Months Aged Out No longer eligible b ased on patient's age to complete this topic Insurance [facility] MEDICAID Advance Directives * Full Code (Latest Code Status on File) Date Activated Date Inactivated Comments 11/29/2021 10:54 AM 11/29/2021 5:29 PM Care Teams Remedy Developer Relationship Specialty Start Date End Date Armando Robles MD [address] [address] PCP - General FAMILY PRACTICE 04/03/19 Carie Ferris MD [facility] [place] [id number] ALLERGY/IMMUNOLOGY 04/03/19 Jaime Johnson MD [address] [facility] [place] [id number] INTERNAL MEDICINE 04/03/19 Elizabeth Araiza MD [address] [place] [address] [address] [id number] NEUROLOGY 04/03/19 Saniya Doe MD [address] [place] [address] INTERNAL MEDICINE 04/03/19 Giovani Zaldivar MD [address] [place] [address] Referring Physician OTOLARYNGOLOGY 04/07/19
--- OUTSIDE RECORDS SUMMARY | 2024-07-31 00:12 | XMS_ITS | Encounter Summary ---
Author Organization [facility] Address 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
--- OUTSIDE RECORDS SUMMARY | 2024-07-31 00:12 | XMS_ITS | Data Portability ---
Author Organization [facility] [email or web address] , [facility] Address [address] [place] [address] Assessment No assessment recorded. Plan of Treatment Reminders Order Date Submit Date Provider Last Modified By Organization Details Last Modified Time Details Appointments None recorded. Lab bacterial vaginosis + vaginitis panel, vaginal 2021 [facility], [address] [place], [address], 11:14:12 pap, LB 2021 [facility], [address] [place], [address], 16:00:52 HPV E6+E7 mRNA, qualitative PCR, cervix 2021 [facility], [address] [place], [address], 13:23:37 Referral None recorded. Procedures None recorded. Surgeries None recorded. Imaging US, transvagina l 2021 [email or web address] Not available 09:19:12 Medication Orders hydrocodone 5 mg-acetamin ophen 325 mg tablet 2021 022 [email or web address] 7 [facility][id number], [address], [place], [id number], 13:58:31 IBU 800 mg tablet [address] [facility] [address] [facility]54007, [address], [place], [id number], 14:32:04 hydroxyzine HCl 25 mg tablet 2021 [facility] #76094, [address], [place], [id number], 16:47:38 metronidazo le 500 mg tablet [address] [facility] [address] [facility] #36424, [address], [place], [id number], 14:32:00 hydrocodone 5 mg-acetamin ophen 325 mg tablet [address] [facility] [address] [facility] #13664, [address], [place], [id number], 13:58:31 Patient TargetsNo targets recorded. Patient Instructions Encounter Date Encounter Id Patient Instructions Last Modified By Organization Details Last Modified Time 09/18/2021 [id number] eating healthy foods: care instructions [email or web address] Not available 09/18/2021 18:31:37 general health care education Not available 09/18/2021 18:31:37 weight managemen t education Not available 09/18/2021 18:31:37 Reason for Referral None Reported. Results Created Date Observation Date Name Description Value Unit Range Abnormal Flag Note LastModifiedBy Organization Detail LastModifiedTime 09/19/19 22 09/20/2021 HPV HIGH RISK HPV high risk Negati ve negati ve normal The HPV High Risk assay is inten ded for use as co-te sting with cytol ogy and not as a subst itute for regul ar cervi johnie cytol ogy scree joel. This assay is not inten ded for use as a scree joel devic e for women under age 30 with kye l cervi johnie cytol ogy. Not Available [facility] [address] [place], [address], 09/20/2021 13:23:37 09/20/19 22 09/25/2021 THINP REP TIS PAP clinical information: normal Infor matio n not provi ded Not Available [address] [address] [place], [address], 09/25/2021 16:00:52 09/20/19 22 09/25/2021 THINP REP TIS PAP LMP: normal Infor matio n not provi ded Not Available [address] [place], [address], 09/25/2021 16:00:52 09/20/19 22 09/25/2021 THINP REP TIS PAP prev. Pap: normal Infor matio n not provi ded Not Available [address] [place], [address], 09/25/2021 16:00:52 09/20/19 22 09/25/2021 THINP REP TIS PAP prev. BX: normal Infor matio n not provi ded Not Available [address], [address], 09/25/2021 16:00:52 09/20/19 22 09/25/2021 THINP REP TIS PAP source: normal Endoc ervix Not Available [address], [address], 09/25/2021 16:00:52 09/20/19 22 09/25/2021 THINP REP TIS PAP statement of adequacy: normal Satis facto ry for evalu ation . Endoc ervic al/tr ansfo rmati on zone compo nent prese nt. Age and/o r menst rual statu s not provi ded Not Available [address] [place], [address], 09/25/2021 16:00:52 09/20/19 22 09/25/2021 THINP REP TIS PAP interpretati on/result: normal Negat millie for intra epith elial lesio n or leonardo garcia . Not Available [address] [address] [place], [address], 09/25/2021 16:00:52 09/20/19 22 09/25/2021 THINP REP TIS PAP comment: normal This Pap test has been evalu ated with compu quintanilla techn ology . Not Available [address] [address] [place], [address], 09/25/2021 16:00:52 09/20/19 22 09/25/2021 THINP REP TIS PAP cytotechnolo gist: normal SXW, CT( CP) CT Scree joel Locat ion: [facility] [place] [address] [place] [place] [address] Not Available [facility] [address] [address] [place], [address], 09/25/2021 16:00:52 09/20/19 22 09/25/2021 THINP REP TIS PAP comment EXPLA NATOR Y NOTE: The Pap is a scree joel test for cervi johnie cance r. It is not a diagn ostic test and is subje ct to false negat millie and false posit millie resul ts. It is most relia ble when a satis facto ry sampl e, regul carlie obtai shadi, is submi tted with relev ant clini johnie findi ngs and histo ry, and when the Pap resul t is evalu ated along with histo kristin and curre nt clini johnie infor matio n. Not Available [address] [address] [place], [address], 09/25/2021 16:00:52 11/26/19 22 11/25/2021 CBC WITH DIFF WBC 5.6 x10'3 /uL 4.5-11 .0 Not Available [facility] (Lab) [address], [place], [address], 11/25/2021 13:18:18 11/26/19 22 11/25/2021 CBC WITH DIFF RBC 4.49 x10'6 /uL 4.20-5 .40 Not Available [facility] (Lab) [address] [facility], [place], [address], 11/25/2021 13:18:18 11/26/19 22 11/25/2021 CBC WITH DIFF hemoglobin 13.5 g/dL 12.0-1 6.0 Not Available [facility] (Lab) [address] [facility], [place], [address], 11/25/2021 13:18:18 11/26/19 22 11/25/2021 CBC WITH DIFF hematocrit 39.4 % 38.0-4 8.0 Not Available [facility] (Lab) [address], [place], [address], 11/25/2021 13:18:18 11/26/19 22 11/25/2021 CBC WITH DIFF MCV 87.8 fL 81.0-9 9.0 Not Available [facility] (Lab) [address] [facility], [place], [address], 11/25/2021 13:18:18 11/26/19 22 11/25/2021 CBC WITH DIFF MCH 30.1 pg 27.0-3 1.0 Not Available [facility] (Lab) [address], [place], [address], 11/25/2021 13:18:18 11/26/19 22 11/25/2021 CBC WITH DIFF MCHC 34.3 g/dL 32.0-3 6.0 Not Available [facility] (Lab) [address] [facility], [place], [address], 11/25/2021 13:18:18 11/26/19 22 11/25/2021 CBC WITH DIFF RDW 12.3 % 11.5-1 4.5 Not Available [facility] (Lab) [address] [facility], [place], [address], 11/25/2021 13:18:18 11/26/19 22 11/25/2021 CBC WITH DIFF platelet count 216 x10'3 /uL 130-40 0 Not Available [facility] (Lab) [address], [place], [address], 11/25/2021 13:18:18 11/26/19 22 11/25/2021 CBC WITH DIFF MPV 9.3 fL 9.3-12 .2 Not Available [facility] (Lab) [address], [place], [address], 11/25/2021 13:18:18 11/26/19 22 11/25/2021 CBC WITH DIFF diff type AUTOMA SANDEEP DIFFER ENTIAL Not Available [facility] (Lab) [address] [facility], [place], [address], 11/25/2021 13:18:18 11/26/19 22 11/25/2021 CBC WITH DIFF neutrophils 59.4 % Not Available [facility] (Lab) [address], [place], [address], 11/25/2021 13:18:18 11/26/19 22 11/25/2021 CBC WITH DIFF lymphocytes 28.2 % Not Available [facility] (Lab) [place], [address], 11/25/2021 13:18:18 11/26/19 22 11/25/2021 CBC WITH DIFF monocytes 6.2 % Not Available [facility] (Lab) [address] [place], [address], 11/25/2021 13:18:18 11/26/19 22 11/25/2021 CBC WITH DIFF eosinophils 5.2 % Not Available [facility] (Lab) [address] [place], [address], 11/25/2021 13:18:18 11/26/19 22 11/25/2021 CBC WITH DIFF basophils 0.5 % Not Available [facility] (Lab) [address] [place], [address], 11/25/2021 13:18:18 11/26/19 22 11/25/2021 CBC WITH DIFF immature granulocytes 0.5 % Not Available [facility] (Lab) [address] [facility], [place], [address], 11/25/2021 13:18:18 11/26/19 22 11/25/2021 CBC WITH DIFF abs. neutrophils 3.34 x10'3 /uL 1.80-7 .70 Not Available [facility] (Lab) [address] [place], [address], 11/25/2021 13:18:18 11/26/19 22 11/25/2021 CBC WITH DIFF abs. lymphocytes 1.59 x10'3 /uL 1.00-4 .80 Not Available [facility] (Lab) [address] [place], [address], 11/25/2021 13:18:18 11/26/19 22 11/25/2021 CBC WITH DIFF abs. monocytes 0.35 x10'3 /uL 0.24-0 .86 Not Available [facility] (Lab) [address] [place], [address], 11/25/2021 13:18:18 11/26/19 22 11/25/2021 CBC WITH DIFF abs. eosinophils 0.29 x10'3 /uL 0.04-0 .36 Not Available [facility] (Lab) [address] [facility], [place], [address], 11/25/2021 13:18:18 11/26/19 22 11/25/2021 CBC WITH DIFF abs. basophils 0.03 x10'3 /uL 0.01-0 .08 Not Available [facility] (Lab) [address] [facility], [place], [address], 11/25/2021 13:18:18 11/26/19 22 11/25/2021 CBC WITH DIFF abs. immature grans 0.03 x10'3 /uL 0.00-0 .49 Not Available [facility] (Lab) [address] [facility], [place], [address], 11/25/2021 13:18:18 11/26/19 22 11/25/2021 TYPE AND SCREE N ABO/Rh(D) O POSITI VE Not Available [facility] (Lab) [address] [facility], [place], [address], 11/29/2021 08:14:39 11/26/19 22 11/25/2021 TYPE AND SCREE N antibody screen NEGATI VE Not Available [facility] (Lab) [address] [facility], [place], [address], 11/29/2021 08:14:39 11/26/19 22 11/29/2021 TYPE AND SCREE N xm expiration 2021,2 359 Not Available [facility] (Lab) [address], [place], [address], 11/29/2021 08:14:39 11/26/19 22 11/29/2021 TYPE AND SCREE N comment NO HISTOR Y OF TRANSF USIONS ,PREGN CHRISTINE OR ANTIBO DIES, NEW SPECIM EN NOT NEEDED Not Available [facility] (Lab) [facility], [place], [address], 11/29/2021 08:14:39 11/30/19 22 11/29/2021 HGB AND HCT hemoglobin 13.7 g/dL 12.0-1 6.0 Not Available [facility] (Lab) [facility], [place], [address], 11/29/2021 13:15:12 11/30/19 22 11/29/2021 HGB AND HCT hematocrit 40.0 % 38.0-4 8.0 Not Available [facility] (Lab) [facility], [place], [address], 11/29/2021 13:15:12 11/30/19 22 11/30/2021 HUEY SURGI JOHNIE PATHO LOGY [facility] [place] [address] Phone : [phone] Fax: Depar tment of Patho logy Patho logy Repor t SURGI JOHNIE FINAL REPOR T Patie nt Name: IRENE MASCORRO lavinia# : [id number] (Age: 41) Locat ion: AGNES Selby r: F Nick cted Date: 2021 Med Rec #: [id number] Date Recei obi: 2021 Date Repor sandeep: 2021 Provi santi: ROSY PEDERSON MD MARKEmerald ABDI MD Speci men(s ) Uteru s, cervi x, bilat eral fallo pian tubes Final Patho logic Diagn osis UTERU S, CERVI X, HYSTE RECTO MY: NO HISTO PATHO LOGIC ABNOR MALIT Y UTERU S, ENDOM ETRIU M, HYSTE RECTO MY: SECRE TORY ENDOM ETRIU M NO HYPER PLASI A OR MALIG KELLI UTERU S, MYOME TRIUM , HYSTE RECTO MY: LEIOM YOMAT A, LARGE ST = 4.5 CM FALLO PIAN TUBES , BILAT ERAL, SALPI NGECT OMIES : NO HISTO PATHO LOGIC ABNOR MALIT Y Sahra ctron icall y Zuleika d Out LUIZA ZAVALA MD Patho logis t SMO:t hs Micro scopi c Descr iptio n: Micro scopi c exami natio n subst antia ruddy above diagn osis. Gross Descr iptio n Recei obi is a singl e forma binu-f illed conta iner label ed with the patie nt's name (Irene lentz), date of ( 9), colle cted 11/29 at 8:44, and addit ional ly label ed uter us, cervi x, bilat eral fallo pian tubes . The speci men consi sts of a 175-g srikanth uteru s with attac hed cervi x and attac hed bilat eral purpl e-linda fimbr iated fallo pian tubes . The uteru s measu res 10.3 cm from fundu s to cervi x, 7.0 cm from cornu to cornu , 8.0 cm from anter ior to poste rior uteri ne body, with an attac hed cervi x measu ring 3.4 x 3.4 cm. The seros a is pink- linda and anabelle h with under lying areas of bulgi ng proba ble myome trial nodul es. The left fallo pian tube measu res 7.0 cm in lengt h with a diame ter up to 0.7 cm. The right fallo pian tube measu res 6.5 cm in lengt h with a diame ter up to 0.7 cm. There is an attac hed possi ble parat ubal cyst prese nt on the right fallo pian tube that is intac t measu ring 0.5 cm in [facility] lavinia that conta ins trans lucen t fluid . Secti oning of the tubes revea ls a pinpo int lumen . The uteru s is bival obi to revea l a uteri ne cavit y measu ring 5.5 x 3.1 cm. The endom etriu m is pink- linda to red-p ink and sligh tly sloug carmelita, measu ring up to 0.4 cm in thick ness. The cervi johnie canal is paten t. Secti oning of the myome trium revea ls five white -linda whorl ed nodul es, rangi ng from 0.5 cm up to 4.5 cm in [facility] lavinia. Three of the nodul es measu re great er than 1 cm in [facility] lav[place] (shantell ining two measu res 1.4 cm and 3.0 cm in [facility] [place]) . Secti oning of the nodul es does not revea l any areas of calci ficat ion, necro sis, or hemor rhage . The myome trium is pink- linda and avera ges 2.5 cm. Repre senta tive secti ons are submi tted as follo ws: 1 - Anter ior cervi x 2 - Poste rior cervi x 3 - Repre senta tive left fallo pian tube 4 - Repre senta tive right fallo pian tube to inclu de evacu ated parat ubal cyst submi tted entir erwin 5 - Repre senta tive myome trial nodul es measu ring 1 cm or less in [facility] est dim lav[place] 6 - Repre senta tive myome trial nodul e measu ring 1.5 cm 7 - Repre senta tive myome trial nodul es measu ring 3.0 cm in [facility] [place] 8,9,1 0 - Repre senta tive large st myome trial nodul e 11,12 - Repre senta tive full- thick ness anter ior endom yomet rium 13,14 - Repre senta tive full- thick ness poste rior endom yomet rium :ths Lan ng Fee Code( s): 72374 Not Available [facility] (Lab) [facility], [place], [address], 11/30/2021 16:07:20 01/10/20 22 01/12/2022 VAGIN ITIS PANEL bacterial vaginosis BV neg negati ve normal Not Available [address], [address], 01/12/2022 11:14:12 01/10/20 22 01/12/2022 VAGIN ITIS PANEL hayley species C. spp neg negati ve normal Not Available [address], [address], 01/12/2022 11:14:12 01/10/20 22 01/12/2022 VAGIN ITIS PANEL hayley glabrata C. gla neg negati ve normal Not Available [address], [address], 01/12/2022 11:14:12 01/10/20 22 01/12/2022 VAGIN ITIS PANEL trichomonas vaginalis CV/TV TRICH neg negati ve normal Not Available [address], [address], 01/12/2022 11:14:12 10/12/19 22 10/09/2021 , trans vagin al No observ ation record ed. [email or web address] Not Available 12/19 12:23:27 Result Notes None recorded. Problems Name Problem SNOMED Code Status Onset Date Resolution Date Notes Provider Name and Address Organization Details Recorded Time History of hysterectomy 207354098 Active 2021 Rosy Pederson MD [address] [facility], [place], [address], [facility] IV 17:04:14 Uterine cervix absent 703712752 Active 2022 Jo Ann Pederson hussain, [place] [facility] IV 13:28:25 Problem Notes None recorded. Procedures Surgical History Date Name Laterality Status Provider Name and Address Organization Details Recorded Time 11/30/19 22 Tlh w/t/o 250 g or less completed Jo Ann Pederson [place] [facility] 11/28/2022 13:27:55 06/15/19 22 Most Recent Mammogram completed Kristinmadison LynchHa [place] [facility] 09/18/2021 17:15:49 06/03/19 18 Date of Last Pap Smear completed Kristinmadison [place] [facility] 09/18/2021 17:15:49 09/18/19 12 Laparoscopic proc completed Candido Schmitz MD [address] [place] [address], [phone], [facility] IV 09/18/2021 17:48:08 09/20/18 98 laparoscopy completed Candido Schmitz MD [address] [place] [address], [phone], [facility] [email or web address] IV 09/18/2021 17:49:48 [facility] [email or web address] [facility] 09/18/2021 17:16:04 Imaging Results Imaging Date Name Status LastModified by Organization Details LastModified Time 10/09/2021 US, transvaginal completed [email or web address] Informa tion not available 01/09/2022 12:23:27 Procedure Notes None recorded. Medical Equipment None Reported. Allergies Allergen ID Allergen Name Allergen Category Reaction Reaction Severity Criticality Documentation Date Start Date Code Code System Note Provider Name and Address Organization Details Recorded Time 718844 cat dander environme nt Not available Not available Not available 09/18/2021 32191 UNK Not Available Not Available Not Available 071834 cigarette smoke environme nt Not available Not available Not available 09/18/2021 27899 UNK Not Available Not Available Not Available 078306 house dust allergeni c extract environme nt,medica tion Not available Not available Not available 09/18/2021 26664 9 RxNorm Not Available Not Available Not Available 775553 latex environme nt,medica tion rash mild Not available 09/18/20212018 35451 91 RxNorm Not Available Not Available Not Available 067946 Canis lupus familiari s extract environme nt Not available Not available Not available 09/18/2021 60178 4 RxNorm Not Available Not Available Not Available 619238 mold extract environme nt Not available Not available Not available 09/18/2021 81715 8 RxNorm Not Available Not Available Not Available 030085 Substance with sulfonami de structure and antibacte rial mechanism of action (substanc e) medicatio n Not available Not available Not available 09/18/2021 99122 8003 SNOMED Not Available Not Available Not Available 427085 Darvocet- N medicatio n Not available Not available Not available 09/18/2021 38343 UNK Not Available Not Available Not Available 936976 acetamino phen / oxycodone medicatio n Not available Not available Not available 09/18/2021 60087 3 RxNorm Not Available Not Available Not Available 318799 oxycodone medicatio n hallucina tions Not available Not available 12/11/20212018 7804 RxNorm Not Available Not Available Not Available Medications Name Sig Start Date Stop Date Status Note LastModified by Organization Details LastModified Time cyclobenzap rine 10 mg tablet TAKE 1 TABLET BY MOUTH TWICE DAILY FOR 7 DAYS NEEDED FOR MUSCLE SPASM active Not Available Not Available No t Available ascorbic acid (vitamin C) 1,000 mg tablet 1000 mg by oral route. active Not Available Not Available No t Available azithromyci n 250 mg tablet TAKE 2 TABLETS BY MOUTH FOR 1 DAY THEN TAKE 1 TABLET BY MOUTH EVERY DAY 11/16 completed Not Available Not Available Not Available ibuprofen 800 mg tablet TAKE 1 TABLET BY MOUTH FOUR TIMES DAILY DIRECTED 11/16 completed Not Available Not Available Not Available hydrocodone 5 mg-acetamin ophen 325 mg tablet TAKE 1 TABLET BY MOUTH EVERY 6 HOURS NEEDED 01/09 completed Not Available Not Available Not Available prednisone 20 mg tablet TAKE 2 TABLETS BY MOUTH EVERY DAY FOR 5 DAYS 11/16 completed Not Available Not Available Not Available metronidazo le 500 mg tablet TAKE 1 TABLET BY MOUTH EVERY 12 HOURS DIRECTED 11/16 completed Not Available Not Available Not Available benzonatate 100 mg capsule TAKE 1 CAPSULE BY MOUTH THREE TIMES DAILY FOR 10 DAYS active Not Available Not Available No t Available paroxetine 30 mg tablet TAKE 1 TABLET BY MOUTH DAILY active Not Available Not Available No t Available niacin 100 mg tablet 100 mg by oral route. 11/24 completed Not Available Not Available Not Available diclofenac potassium 50 mg tablet TAKE 1 TABLET BY MOUTH TWICE DAILY FOR 7 DAYS FOR SHOULDER PAIN active Not Available Not Available No t Available gabapentin 300 mg capsule TAKE 1 CAPSULE BY MOUTH THREE TIMES DAILY active Not Available Not Available No t Available montelukast 10 mg tablet 10 mg by oral route. active Not Available Not Available No t Available hydroxyzine HCl 25 mg tablet TAKE 1 TO 2 TABLETS BY MOUTH EVERY 6 HOURS NEEDED active Not Available Not Available No t Available albuterol sulfate HFA 90 mcg/actuati on aerosol inhaler 2 {puff}s every 6 hours by inhalatio n route. active Not Available Not Available No t Available paroxetine 40 mg tablet Take 40 mg by oral route. 12/12 completed Not Available Not Available Not Available cefdinir 300 mg capsule 1 {capsule} by oral route. 11/24 completed Not Available Not Available Not Available hydrocodone 7.5 mg-acetamin ophen 325 mg/15 mL oral solution 0 mL every 6 hours by oral route. 11/24 completed Not Available Not Available Not Available pregabalin 150 mg capsule 1 {tbl} by oral route. 11/24 completed Not Available Not Available Not Available albuterol sulfate 11/16 completed Not Available Not Available Not Available cholecalcif john (vitamin D3) 25 mcg (1,000 unit) tablet 2000 units by oral route. active Not Available Not Available No t Available Zyrtec 10 mg capsule 1 {tbl} by oral route. active Not Available Not Available No t Available Flonase Allergy Relief 50 mcg/actuati on nasal spray,suspe nsion [place] 1 spray every day by intranasa l route. active Not Available Not Available No t Available Wixela Inhub 100 mcg-50 mcg/dose powder for inhalation INHALE 1 PUFF BY MOUTH TWICE DAILY active Not Available Not Available No t Available Vitals Date Recorded Body weight Body temperature Body mass index (BMI) Body height Provider Name and Address Organization Details Last Updated DateTime 09/18/2021 33507.1 g 98.2 [degF] 28.3 kg/m2 167.64 cm Delmis Olson [place] [employer] [facility] 09/18/2021 17:27:27 Date Recorded Body height Body mass index (BMI) Body weight Body temperature Systolic blood pressure Diastolic blood pressure Provider Name and Address Organization Details Last Updated DateTime 2 167.64 cm 27.9 kg/m2 95487.4 8 g 98.4 [degF] 122 mm[Hg] 78 mm[Hg] Karis Earl [place] [employer] [facility] 2 15:26:55 Date Recorded Body height Provider Name an d Address Organization Details Last Updated DateTime 11/16/2021 167.64 cm Margo Beyer [place] [employer] [facility] 11/16/2021 14:31:27 Date Recorded Body height Body mass index (BMI) Body weight Systolic blood pressure Diastolic blood pressure Provider Name and Address Organization Details Last Updated DateTime 12/12/2021 167.64 cm 28.8 kg/m2 67631.88 g 118 mm[Hg] 76 mm[Hg] Margo Beyer [place] [employer] [facility] 2 11:07:28 Date Recorded Body height Body mass index (BMI) Body weight Systolic blood pressure Diastolic blood pressure Provider Name and Address Organization Details Last Updated DateTime 01/09/2022 167.64 cm 28.7 kg/m2 88513 g 122 mm[Hg] 72 mm[Hg] Margomadison Beyer [place] [employer] [facility] 2 14:03:26 Social History Question Answer Notes LastModified by Organizat ion Details LastModified Time Tobacco Smoking Status Never Smoker Kristin nixon, [place] [employer] [facility] 09/18/2021 17:15:59 What Is Your Level Of Alcohol Consumption? Occasional Information not available 09/18/2021 How Many Years Have You Consumed Alcohol? 10 Information not available 09/18/2021 Are You Currently Employed? Yes Information not available 09/18/2021 What Type Of Diet Are You Following? REGULAR Information not available 09/18/2021 Do You Or Have You Ever Used E-cigarettes Or Vape? Never Used Electronic Cigarettes Information not available 09/18/2021 What Is Your Occupation? [employer] Work[employer] X 3 Years Going To [employer] [facility] [place] [employer] Starts 01-01-22 Information not available 10/09/2021 What Is Your Relationship Status? Information not available 09/18/2021 Are You Sexually Active? Yes Information not available 09/18/2021 Do You Use Any Illicit Or Recreational Drugs? No cduft Information not available 09/18/2021 Sex: Unknown Functional Status Question Answer Note LastModified by Organizat ion Details LastModified Time What is your exercise level? Occasional Information not available 09/18/2021 Mental Status None recorded. Family History Relationship Description Onset Age of this Age Resolved Age Notes LastModified by Organization Details LastModified Time Paternal Grandfather Hypercholest erolemia Not available 06/2021 17:15:44 Paternal Grandfather Diabetes mellitus Not available 06/2021 17:15:44 Paternal Grandfather Malignant neoplastic disease Skin Cancer cduft Not available 09/18/2021 17:33:35 Paternal Grandfather Hypertensive disorder Not available 06/2021 17:15:44 Paternal Grandfather Heart disease Not available 06/2021 17:15:44 Maternal Grandmother Malignant neoplastic disease Not available 06/2021 17:15:44 Maternal Grandmother Hypertensive disorder Not available 06/2021 17:15:44 Maternal Grandmother Heart disease Not available 06/2021 17:15:44 Father Hypercholest erolemia Not available 06/2021 17:15:44 Father Myocardial infarction Not available 06/2021 17:15:44 Father Diabetes mellitus Not available 06/2021 17:15:44 Father Hypertensive disorder Not available 06/2021 17:15:44 Maternal Grandfather Hypothyroidi sm Not available 06/2021 17:15:44 Maternal Grandfather Myocardial infarction Not available 06/2021 17:15:44 Maternal Grandfather Cerebrovascu lar accident Not available 0 09/18/2021 17:15:44 Maternal Grandfather Malignant neoplastic disease Not available 06/2021 17:15:44 Maternal Grandfather Heart disease Not available 06/2021 17:15:45 Maternal Aunt Malignant tumor of breast cduft Not available 2021 17:33:44 Paternal Grandmother Diabetes mellitus Not available 06/2021 17:15:45 Paternal Grandmother Hypertensive disorder Not available 06/2021 17:15:45 Paternal Grandmother Heart disease Not available 06/2021 17:15:45 Paternal Grandmother Cerebrovascu lar accident Not available 0 09/18/2021 17:15:45 Paternal Grandmother Hypercholest erolemia Not available 06/2021 17:15:45 Medical History Condition Response Anemia Y Panic Attacks Y Anxiety Disorder Y Autoimmune disease Y Arthritis Y Asthma Y Seasonal allergies Y IBS (Irritable Bowel Syndrome) Y Fibromyalgia Y Ulcer Y Gynecological History Statement/Question Response If Post Menopausal, Age at Menopause 41 Flow Moderate Frequency of Cycle (Q days) 25 Date of LMP 10/29/2021 Date of Last Pap Smear 06/03/2017 Duration of Flow (days) 4 Most Recent Mammogram 06/15/2021 Current Control Method Hysterectom y Age at Menarche 11 Obstetrics History GPAL:G 0 P 0 0 0 0 Type Value Multiple Births 0 Full Term 0 Induced 0 Spontaneous 0 Premature 0 Living 0 Ectopics 0 Total 0 Immunizations Vaccine Type Date Status Note Provider Nam e and Address Organization Details Recorded Time COVID-19, mRNA, LNP-S, PF, 30 mcg/0.3 mL dose 07/09/2020 completed Rosy Pederson MD [address] [place] [address], [phone], [facility] 12/11/2021 17:04:14 COVID-19, mRNA, LNP-S, PF, 30 mcg/0.3 mL dose 07/30/2020 completed Rosy Pederson MD [address] [place], [address], [facility] 12/11/2021 17:04:14 Past Encounters Encounter ID Performer Location Encounter Start Date Encounter Closed Date Diagnosis/Indication Diagnosis SNOMED-CT Code Diagnosis ICD10 Code Diagnosis Note [id number] Candido Schmitz MD [address] [address] 09/18/2021 16:39:02 09/19/2021 09:19:12 Gynecologic examination 08341531 Z01.89 y.o. here for annual exam. - Pap up to date from , discussed natural course of HPV infection, ASCCP guidelines . Plan to repeat cotesting in - Contracept millie counseling : Discussed options including OCPs, NuvaRing, Nexplanon, hormonal and copper IUDs. Discussed risks, benefits, and side effects of each option, including risk of VTE with hormonal contracept ion and uterine perforatio n with IUD. - Routine labs done with PCP - Mammo last year WNL, discussed option for yearly or q2 yr screening in 40s based on different guideline recommenda tions, pt without family hx, would like to proceed with q2yr screening, repeat next year - Depression screen NEG - BMI counseling , diet and exercise reviewed - RTO for annual or PRN Screening for malignant neoplasm of cervix 445183834 Z12.4 Uterine leiomyoma 006974 05 D25.9 discussed hyst and spare the ovaries Endometrio sis of pelvic peritoneum 448817247 N80.3 gave orlissa [id number] Candido Schmitz MD [address] [address] 10/09/2021 14:24:40 10/09/2021 17:25:03 Uterine leiomyoma 18348448 D25.9 discussed hyst and spare the ovaries and 5cm fibroid and uterus measures 10cmCOUNSE LING was provided today regarding the following topics: . The surgical procedure for [place] total Laparoscop ic Hyst and bilateral salpingect abhijeet, the alternativ es and risks including but not limited to anethesia, bleeding, infection, injury to surroundin g organs, improper wound healing, DVT, VTE, PE, pneumonia, possible need for laparotomy , ureteral or bladder injury, , or possible need for more surgery at a later date were all discussed and explained. The procedure was explained with the aid of an anatomical model and pamphlet. The patient wants to keep her ovaries unless they look abnormal or we discussed removing them and ramificati ons of surgical menopause as well as recommend to do HRT in some regard . She understand s that her uterus is being removed and she then will not be able to carry a for herself or anyone else. The expected recovery was discussed. The patient was able to tell me back a good understand ing of the procedure, it's indication , the risks and recovery. She has no questions and wants to proceed as scheduled [id number] Rosy Pederson MD [address] [address] 11/16/2021 14:29:06 11/16/2021 15:29:24 Uterine leiomyoma 46456517 D25.9 Discussed options for treatment of symptoms. Patient is most interested in hysterecto my. We discussed the planned procedure of Robotic TLH/BSO/cy stoscopy. Patient is aware that there are alternativ e routes of hysterecto my and their associated risks and benefits. Reviewed risks including but not limited to bleeding, infection, injury and abdominal incision. Patient is aware that this is an outpatient procedure and understand s that certain criteria must be met before discharge. She is also aware of her restrictio ns in the immediate 2 week post op period and that she should follow up at 2 weeks and 6 weeks postoperat millie. [id number] Rosy Pederson MD [address] [address] 12/12/2021 10:58:28 12/13/2021 11:12:51 Postoperative visit [id number] Z09 Discussed postoperat millie pathology with patient. Reviewed Surgical findings. Patient instructed to maintain strict pelvic rest and no heavy lifting greater than 20 lbs. She was instructed to return for a second postoperat millie visit in 4 weeks to evaluated the vaginal cuff. All of her questions were answered. [id number] Rosy Pederson MD [address] [address] 01/09/2022 13:49:17 01/09/2022 15:29:03 Postoperative visit 419826215 Z09 Routine post operative care. May return to normal activities . Discussed careful return to vaginal intercours e. Reviewed Pathology findings with the patient. All questions answered to fullest extent. Follow up per routine SENIOR NETWORK ADMINISTRATOR care. Vaginal discharge [id number] N89.8 Health Concerns Section Related Observation LastModified by Organization Detai ls LastModified Time None Recorded Concern Status LastModified by Organization Details LastModified Time None Recorded Advance Directives Directive None Recorded Payers Encounter Date Sequence Insurance Name Policy Number Policy Hughes Covered Member ID Hughes Member ID Guarantor Name 09/18/2021 1 [facility] (PPO) [id number] Irene Blackwel l-Escobedo [id number] Irene Galvan-H ardin 10/09/2021 1 [facility] (PPO) [id number] Irene Blackwel l-Escobedo [id number] Irene Galvan-H ardin 11/16/2021 1 [facility] (PPO) [id number] Irene Blackwel l-Escobedo [id number] Irene Galvan-H ardin 12/12/2021 1 [employer] (PPO) [id number] Irene Blackwel l-Escobedo [id number] Irene Galvan-H ardin 01/09/2022 1 [facility] (PPO) [id number] Irene Blackwel l-Escobedo [id number] Irene Galvan-H ardin Notes Date Note Type Note Provider Name and Address Organization Details Recorded Time 09/18/2021 text/html Annual GYNReport ed bypatient.Notes:has had dysmenorhea and has nausea and loose stools and headaches Eval for endo....had a CT scan 3-2021 and no masses appreciated Candido Schmitz MD [facility], [place], [address], [employer] [facility] 09/18/2021 21:08:03 10/09/2021 text/html Here to discuss mangement of fibroids. Had u/s today Candido Schmitz MD [address] [facility], [place], [address], [employer] [facility] 10/09/2021 16:54:23 11/16/2021 text/html Pre-Op OBGYN HPIReported bypatient.Surgery to be Performed:Robotic TLH / BSO / Cysto Diagnosis:fibroid Location:[place] on November 29, 2021 Risk Factorsno cognitive impairment; no functional impairment; no malnutrition; no frailty; able to climb a flight of stairs (exercise capacity>4 METS); no obstructive sleep apnea; non-smoker; no alcohol misuse; no illicit drug use; no chronic cardiopulmonary condition; not obese Anesthesia hx:no hx of anesthesia complications; no allergy to anesthetic agents; no family history of anesthesia complications Past surgical issuesNo previous surgical complications Bleeding disordersNo bleeding / clotting issuesNotes:pain and mass effect symptoms of fibroids Irene here for pre op visit Rosy Pederson MD [address] [place] [address], [phone], [employer] [facility] 11/16/2021 15:28:31 12/12/2021 text/html Post-OpReported bypatient.Onset/[place] g:date of surgery: (11/29/2021) Quality:procedure: (Robotic TLH / BSO / Cysto) Context:reason for procedure: (abnormal bleeding) Associated Symptoms:incision healing well; normal appetite; normal bowel function; no constipation; no nausea; no emesis; pain improving; no fever; no bleeding; no lower extremity edema/pain; no dysuria/urinary symptoms;fatigue Irene here for 2 week post op visit Rosy Pederson MD [address] [place] [address], [phone], [employer] [facility] 12/12/2021 11:25:18 01/09/2022 text/html Post-OpReported bypatient.Paras/Israel g:date of surgery: (11/29/2021); @ [place] Quality:procedure: (Robotic TLH/BSO/Cysto) Associated Symptoms:incision healing well; no fatigue; normal appetite; normal bowel function; no constipation; no nausea; no emesis; pain improving; no fever; no bleeding; no lower extremity edema/pain; no dysuria/urinary symptoms; doing well little pain, did more and now little more pain than beofre Irene here for 6 week post op visit Rosy Pederson MD [address] [facility], [place], [address], [facility] 01/09/2022 14:36:44 OBGyn Episode No OBEpisode recorded.
--- OUTSIDE RECORDS SUMMARY | 2024-07-31 00:12 | XMS_ITS | Encounter Summary ---
Author Organization [facility] Address [address] [place] [address] Care Team Providers Care Drill Press Hand Name Role Phone Shekhar Victoria MD Primary Care Provider [phone] Encounter Details Date Type Department Care Team (Late st Contact Info) Description 07/14/2007 Outpatient Historical [facility] [place] [address] [place] [address] [place] [address] [facility] [address] [place] [address] Social History Tobacco Use Types Packs/Day Years Used Date Smoking Tobacco: Never Assessed Comments Unknown Sex and Gender Information Value Date Recorded Sex Assigned at Not on file 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
--- OUTSIDE RECORDS SUMMARY | 2024-07-31 00:12 | XMS_ITS | Encounter Summary ---
Author Organization [facility] Address [address] [place] [address] Care Team Providers Care Automobile Leasing Supervisor Name Role Phone Shekhar Victoria MD Primary Care Provider [phone] Encounter Details Date Type Department Care Team (Late st Contact Info) Description 04/22/2001 Outpatient Historical [address] 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
--- OUTSIDE RECORDS SUMMARY | 2024-07-31 00:13 | XMS_ITS | Encounter Summary ---
Author Organization [facility] Address 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 Gender Identity Not on file Sexual Orientation Not on file documented as of this encounter Plan of Treatment Not on file documented as of this encounter Procedures Procedure Name Priority Date/Time Associated Diagnosis Comments HEMOGLOBIN AND HEMATOCRIT Stat 10/27/2007 11:44 AM CDT POC , URINE Routine 10/27/2007 11:44 AM CDT documented in this encounter Results * POC , URINE (10/27/2007 11:44 AM CDT) , URINE POC Negative Negative [facility] Urine specimen (specimen) 10/27/2007 11:44 AM CDT 10/27/2007 11:44 AM CDT us Latisha Fowler MD POINT OF CARE TESTING Final Re sult Performing Organization Address [facility] Co de Phone Number [facility] CLIA# [id number] [address] [place] [address] * (ABNORMAL) HEMOGLOBIN AND HEMATOCRIT (10/27/2007 11:44 AM CDT) HEMOGLOBIN 9.8(L) 11.8 - 14.8 g/dL [facility] HEMATOCRIT 32.5(L) 35.5 - 44.0 % [facility] Blood specimen (specimen) 10/27/2007 11:44 AM CDT 10/27/2007 11:50 AM CDT Narrative [facility] - 10/27/2007 12:01 PM CDT rm34 us Latisha Fowler MD HEMATOLOGY ORDERABLES Final Re sult Performing Organization Address [facility] Co de Phone Number [facility] CLIA# [id number] [address] [place] [address] documented in this encounter Visit Diagnoses Not on filedocumented in this encounter Care Teams Supervisor Hide House Relationship Specialty Start Date End Date Esme, Shekhar Shields MD PCP - General 10/15/07 06/12/18 documented as of this encounter
--- OUTSIDE RECORDS SUMMARY | 2024-07-31 00:13 | XMS_ITS | Encounter Summary ---
Author Organization [email or web address] Address 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 [place], [place] [address] Patient: VERA GALVAN : 1980 Procedure Date: 12/03/2007 Accession Date: 12/03/2007 Case No: [id number] Ordering Dr: LATISHA FOWLER Case types AW, BW, FW, NW and SH are performed by [facility], [place], [place] SURGICAL PATHOLOGY & NON-GYNECOLOGIC CYTOPATHOLOGY REPORT DIAGNOSIS SKIN AND SUBCUTANEOUS TISSUE, RIGHT VULVAR LABIA, EXCISION: - KERATINOUS CYST, PREVIOUSLY RUPTURED. - ACUTE AND CHRONIC INFLAMMATION, CONSISTENT WITH CHRONIC ABSCESS. Specimen Description: Right labial cyst. Operative Procedure: Right labial cyst excision. Patient Information/Histo ry/Diagnosis: Right labial cyst. Gross: Received in a single container and labeled Vera Galvan, right labial cyst is a linda, hair-bearing, unoriented ellipse of skin measuring 2.4 x 0.9 cm and excised to a depth of 1.7 cm. The tissue is inked blue at the margin and serially sectioned to reveal a smooth linda-yellow cut surface. The entire specimen is submitted as follows: cassette A1-tips; cassettes and A2 and A3-central sections. LWL/TMZ 12.03.2007 03:15 pm Microscopic: The slides are labeled [id number] and Vera Galvan. The specimen from the right vulvar labia consists of skin excised to the depth of the underlying subcutaneous tissue. Present in the deep dermis and superficial subcutis is a mixed acute and chronic inflammatory infiltrate which surrounds a small squamous-lined cyst remnant filled with laminated keratinous material, consistent with an epidermal inclusion/keratin ous cyst. GL/EDGAR 12.05.2007 09:52 am Staging Form: No. ELECTRONIC SIGNATURE FOR MYA ROSE M.D.- 12/05/07 01:52 pm INTERFACE SYSTEM 12/03/2007 11:5 9 AM CDT us Latisha Fowler MD PATHOLOGY/CYTOLOGY ORDERABLES Final Result INTERFACE SYSTEM Refer to clinic/hospital department * POC , URINE (12/03/2007 8:25 AM CDT) , URINE POC Negative Negative [facility] Urine specimen (specimen) 12/03/2007 8:25 AM CDT 12/03/2007 8:25 AM CDT Narrative [facility] - 12/03/2007 1:20 PM CDT Ordered by an unspecified provider. us Historical Provider POINT OF CARE TESTING Final Result Performing Organization Address [facility] Co de Phone Number [facility] CLIA# [id number] [address] [address] * (ABNORMAL) HEMOGLOBIN AND HEMATOCRIT (12/03/2007 8:03 AM CDT) HEMOGLOBIN 10.1(L) 11.8 - 14.8 g/dL [facility] HEMATOCRIT 32.4(L) 35.5 - 44.0 % [facility] Blood specimen (specimen) 12/03/2007 8:03 AM CDT 12/03/2007 8:43 AM CDT Narrative [facility] - 12/03/2007 8:52 AM CDT 32 us Latisha Fowler MD HEMATOLOGY ORDERABLES Final Re sult Performing Organization Address [facility] Co de Phone Number [facility] CLIA# [id number] [address] [place] [address] documented in this encounter Visit Diagnoses Not on filedocumented in this encounter Care Teams Dry Ice Maker Relationship Specialty Start Date End Date Esme, Shekhar Shields MD PCP - General 10/15/07 06/12/18 documented as of this encounter
--- OUTSIDE RECORDS SUMMARY | 2024-07-31 00:13 | XMS_ITS | Clinical Summary ---
Author Organization [employer] Bernice eres Address [address] [place] [address] Care Team Providers Care Defensive Driving Instructor Name Role Phone Unavailable Primary Care Provider Unavailabl e Allergies Active Allergy Reactions Criticality Noted Date Comments Latex Hives High 05/19/2009 Sulfa (Sulfonamide Antibiotics) Nausea and Vomiting Low 06/10/2007 Medications NASONEX 50 mcg/Actuation Both Nostril [place] once daily 3.00 0 8 Active pregabalin (LYRICA) 150 mg Oral Cap Take 1 Cap by mouth every 12 hours. 180 Cap 0 9 Active acetaminophen (TYLENOL) 325 mg Oral tablet Take 325 mg by mouth every 4 hours as needed. Active Albuterol, Refill, 90 mcg/Actuation Inhalation AeroIndications:U nspecified asthma, with exacerbation Take 2 Puffs by inhalation every 6 hours as needed for Other (See Comment) (2 puffs q 4 to 6 hrs prn cough/congesti on /wheezing. ). 1 Inhaler 11 1 Active LANSOPRAZOLE (PREVACID ORAL) Take by mouth. Active MULTIVITAMINS WITH FLUORIDE (MULTI-VITAMIN ORAL) Take by mouth. Activ e montelukast (SINGULAIR) 10 mg Oral tablet Take 10 mg by mouth daily at bedtime. Active methylphenidate ER 24hr (CONCERTA) 54 mg Oral tablet Take 54 mg by mouth daily rib chopper. Active PARoxetine hcl SR 24 hour (PAXIL SR) 25 mg Oral tablet Take 25 mg by mouth daily at bedtime. Active fluticasone-salme terol (ADVAIR DISKUS) 250-50 mcg/dose Inhalation DsDv 8 Active cetirizine (ZYRTEC) 10 mg Oral tablet 8 Active HYDROcodone-aceta minophen (VICODIN) 5-500 mg Oral tablet Take 1 Tab by mouth every 4 hours as needed for Pain, Moderate. 30 Tab 0 2 Active zolpidem (AMBIEN) 10 mg Oral tablet Take 1 Tab by mouth nightly as needed for Insomnia. 10 Tab 0 2 Active Active Problems Patient Care Coordination No te Formatting of this note migh t be different from the original. IOCP Patient Jennifer Chavarria [phone] Problem Noted Date Diagnosed Date S/P laprascopic myomectomy 12/14/2011 Gastritis and duodenitis 06/16/2009 Anxiety state 06/16/2009 Myalgia and myositis, unspecified 06/10/2007 Allergic rhinitis, cause unspecified 06/10/2007 Unspecified asthma(493.90) 06/10/2007 Mitral valve disorders(424.0) 06/10/2007 Resolved Problems Problem Noted Date Diagnosed Date Resolved Date Open wound of finger(s) , wi thout mention of complication 07/17/2007 06/16/2009 Routine general medical exam ination at a health care facility 06/10/2007 06/16/2009 Screening for lipoid disorders 06/10/2007 06/16/2009 Immunizations Immunization Administration Dates Next Due Influenza Vaccine Split 3+ Yrs IM 04/23/2011 Skin Test TB 09/13/2008 Family History Medical History Relation Name Comments Diabetes Father Heart Disease Father Hypertension Father Cancer Maternal Grandfather prostat e Heart Disease Maternal Grandfather Stroke Maternal Grandfather Cancer Maternal Grandmother skin Hypertension Maternal Grandmother Heart Disease Mother Thyroid Disease Mother Cancer Paternal Grandfather skin Diabetes Paternal Grandfather Heart Disease Paternal Grandfather Hypertension Paternal Grandfather Diabetes Paternal Grandmother Heart Disease Paternal Grandmother Hypertension Paternal Grandmother Stroke Paternal Grandmother Relation Name Status Comments Father Maternal Grandfather Maternal Grandmother Mother Alive Paternal Grandfather Paternal Grandmother Social History Tobacco Use Types Packs/Day Years Used Date Smoking Tobacco: Never Smokeless Tobacco: Never Alcohol Use Standard Drinks/Week Comments Yes 0 (1 standard drink = 0.6 oz pur e alcohol) once a month Comments No Sex and Gender Information Value Date Recorded Sex Assigned at Not on file 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 Gender Identity Not on file Sexual Orientation Not on file Occupation Industry Job Start Date Job End Date [employer] Not on file Not on file Not on file Last Filed Vital Signs Vital Sign Reading Time Taken Comments Blood Pressure 130/92 01/10/2012 3:41 PM CDT Pulse 84 01/10/2012 3:41 PM CDT Temperature 36.7 C (98.1 F) 01/02/2012 10:03 AM CDT Respiratory Rate 16 12/15/2011 9:00 AM CDT Oxygen Saturation 96% 12/15/2011 9:00 AM CDT Inhaled Oxygen Concentration - - Weight 69.9 kg (154 lb) 01/10/2012 3:41 PM CDT Height 167.6 cm (5' 6 ) 01/10/2012 3:41 PM CDT Body Mass Index 24.86 01/10/2012 3:41 PM CDT Plan of Treatment Health Maintenance Due Date Last Done Comments PNEUMOCOCCAL VACCINE 0-49 YEARS (1 of 2 - PCV) 1984 DTAP/TDAP/TD VACCINES (1 - Tdap) 1997 HEPATITIS B VACCINES (1 of 3 - 19+ 3-dose series) 1997 CERVICAL CANCER SCREENING 02/15/20132009, 08/19/2007 BREAST CANCER SCREENING 2018 COLORECTAL SCREENING 10/25/2023 10/03/2011, 04/19/2008 Colorectal Cancer Screening 10/25/2023 FIT-DNA Q 3 years 10/25/2023 FIT/FOBT Q 1 year 10/25/2023 Flex Sig/CT Colonography Q 5 years 10/25/2023 INFLUENZA VACCINE (#1) 2023 04/23/2011 HPV VACCINES Aged Out No longer eligi ble based on patient's age to complete this topic Medical Devices Implanted Type Area Pattern Assembler Device Identifier Shelf Expiration Date Model / Serial / Lot Barrier Interceed Adh 3x4in [id number] - Sna Implanted:Qty : 1 on 12/14/2011 by Indra Kidd MD at [facility] Adhesion Barrier N/A: Abdomen [employer] 03/19/2016 [id number] / NA / [id number] Procedures Procedure Name Priority Date/Time Associated Diagnosis Comments ENDOSCOPY, COLON, SCREENING Routine 10/03/2011 from Last 3 Months or Most Recently Relevant to Health Maintenance Results * ENDOSCOPY, COLON, SCREENING (10/03/2011) us Abstract Provider GI PROCEDURE ORDERABLES Final Result [facility] from Last 3 Months or Most Recently Relevant to Health Maintenance Insurance BLUE ACCESS CHOICE Advance Directives For more information, please contact: [phone] Documents on File Type Date Recorded Patient Public Health Social Worker Expl anation Advance Directive Living Will 12/14/2011 Advance Directive POA 12/14/2011 6:23 AM A dvance Directive POA * Full Code (Latest Code Status on File) Date Activated Date Inactivated Comments 12/14/2011 10:49 AM 12/15/2011 4:23 PM * Full Code Date Activated Date Inactivated Comments 12/14/2011 5:37 AM 12/14/2011 10:49 AM
--- OUTSIDE RECORDS SUMMARY | 2024-07-31 00:13 | XMS_ITS | Encounter Summary ---
Author Organization [employer] Address [address] [place] [address] Care Team Providers Care Pain Coordinator Name Role Phone Shekhar Victoria MD Primary Care Provider [phone] Encounter Details Date Type Department Care Team (Late st Contact Info) Description 02/26/[address] 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
--- OUTSIDE RECORDS SUMMARY | 2024-07-31 00:13 | XMS_ITS | Encounter Summary ---
Author Organization [employer] Address 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
--- NOTE | 2024-07-31 07:17 | WPDHPUPDATE1 ---
History and Physical Update Update Date/Time: 07/31/24 07:17 History and Physical has been reviewed, including an updated exam of the patient. There are NO changes in the patient's condition. Risks, benefits, and alternatives have been discussed and questions answered. Patient agrees to proceed with procedure.
[2024-07-31] MEDS: LACTATED RINGERS 1,000 ML 30 ML IV CONT (08:00)
[2024-07-31 08:37] VITALS: BP 117/84; PULSE 85; RESP 16; TEMP 36.7; O2SAT 100
--- NOTE | 2024-07-31 08:51 | P.PNAN_ITS ---
Anes - Initial Pre Proc Eval Procedure: Operation Date: 07/31/24 09:30 Proposed Procedures p Removal Ganglion Cyst Right Ankle - Killian Delgado Jr., DPM Date/Time: 07/31/24 08:51 Surgeon: Killian Delgado Jr., DPM Pre Op Diagnosis: Ganglion Cyst Right Ankle Patient Data Age: 43 Gender: F Height: 1.68 m Weight: 80.2 kg Last Vital Signs Temp 36.7 C 07/31/24 08:37 Pulse 85 07/31/24 08:37 Resp 16 07/31/24 08:37 BP 117/84 07/31/24 08:37 Pulse Ox 100 07/31/24 08:37 O2 Del Method Room Air 07/31/24 08:37 Allergies Allergy/AdvReac Type Severity Reaction Status Date / Time sesame oil Allergy Intermediate Itching Verified 07/31/24 08:35 latex Allergy Unknown RASH-CONDOMS, Verified 07/31/24 08:35 GLOVES Tetanus Vaccines and Toxoid Allergy Unknown HIGH Verified 07/31/24 08:35 FEVER, SEVERE PAIN AT INJECTION SITE propoxyphene (From AdvReac Intermediate Hallucinati Verified 07/31/24 08:35 Darvocet-N) ng Sulfa (Sulfonamide AdvReac Unknown FEVER, Verified 07/31/24 08:35 Antibiotics) VOMITING oxycodone (From Percocet) AdvReac Hallucinati Verified 07/31/24 08:35 ng Home Medications ?Medication ?Instructions ?Recorded ?Confirmed ?Type acetaminophen 650 mg 650 mg PO Q8H 05/17/19 07/21/24 History tablet,extended release (Tylenol Arthritis Pain) albuterol sulfate 90 mcg/actuation 1 inhalation inhalation Q4H 05/17/19 07/21/24 History aerosol inhaler (Ventolin HFA) cetirizine 10 mg tablet (Zyrtec) 10 mg PO DAILY 05/17/19 07/21/24 History clindamycin phosphate 1 % topical 1 applic topical DAILY #80 mL 12/17/23 0 07/21/24 Rx solution propylene glycol (PF) 0.6 % eye 2 drp ophthalmic (eye) HS PRN dry 12/23/23 07/21/24 History drops (Systane Complete PF) eye(s) paroxetine HCl 30 mg tablet 30 mg PO DAILY #90 tabs 07/05/24 07/21/24 Rx dicyclomine 10 mg capsule 10 mg PO QID PRN abdominal pain 07/21/24 07/21/24 History multivitamin (Daily Multi-Vitamin 1 tablet PO DAILY 07/21/24 07/21/24 History tablet) pregabalin 75 mg capsule (Lyrica) 75 mg PO DAILY 07/21/24 07/21/24 History Patient hx anesthesia problems: none Family hx anesthesia problems: none Results Review: All pre-operative results and documents have been reviewed as part of the pre- operative evaluation. [facility] Past Medical History Medical History Bilateral arm weakness Diplopia Dysarthria Progressive focal neurological deficit Dizziness Paresthesia of skin Hearing loss Small fiber neuropathy Hip pain, left Bronchitis due to COVID-19 virus Pain of left breast Cerumen impaction Need for vaccination Screening mammogram, encounter for Screening for lipid disorders Surgical History Surgical History History of hysterectomy Family History Family History Father Family history of diabetes mellitus in first degree relative Patient's father is Diabetes mellitus Grandparent Diabetes mellitus Mother Heart disease Other Cerebrovascular accident Family history of Alzheimer's disease Social History Social History Smoking status: Never smoker Second hand tobacco smoke exposure: No Alcohol intake: current Alcohol use details: rarely; hard cider, mixed drinks Substance use: never Substance use type: does not use Lack of Transportation: No Lack of Food: Never True Current Housing: I Have Housing Concerned About Future Housing: No Difficulty Paying Gas/Electric Bills: No Difficulty Paying for Meds: No Currently Unemployed: No Education: Master's Degree or Higher Difficulty w/ Childcare or Family Care: No Living arrangements: with family Occupation/Education: occupation 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 Informed Consent: The patient's anesthetic plan and its attendant risks and benefits were discussed with the patient/family/POA. Questions were solicited and answers provided to the satisfaction of the patient/family/POA.
[2024-07-31] MEDS: ceFAZolin 2 GM/D5W 50 ML 2 GM/50 ML BAG IVPB (09:49)
[2024-07-31] MEDS: LIDOCAINE 2% LOCAL INJ 20 ML VIAL 10 ML INFILTRATE (10:07)
[2024-07-31] MEDS: BUPivacaine HCL 0.5% 10 ML AMP INFILTRATE (10:08)
--- NOTE | 2024-07-31 10:28 | W.PM.PROC2 ---
Procedure Note - Detailed Date of Procedure 07/31/24 Pre-op Diagnosis Ganglion Cyst Right Ankle Post-op Diagnosis Same Procedure Performed Excision of ganglion cyst right ankle Surgeon Killian Delgado Jr., DPM Anesthesia MAC and Local Indications Painful soft tissue mass right anterior lateral ankle. Findings 1.5cm diameter encapsulated cystic mass arising form the tibiofibular joint superior to the talocrural joint Description of Procedure PROCEDURE IN DETAIL: Under mild sedation, the patient was brought into the operating room, placed on the operating table in slight lateral position with a bump to the ipsilateral hip. A pneumatic ankle tourniquet was placed about the patient's ankle. Following general anesthesia, a local anesthetic block was obtained about the proximal lateral right leg utilizing 20 cc of a 1:1 of 2% Lidocaine plain and 0.5% Marcaine plain. The foot was then scrubbed, prepped, and draped in the usual aseptic manner. An Esmarch bandage was then used to exsanguinate the patient's foot and the pneumatic ankle tourniquet was then inflated. Surgery began in the following manner: Attention was directed to the lateral aspect of the right leg just superior to the talocrural joint where a subcutaneous mass was palpated. The incision was made starting aproximately 3cm superior to the talocrural joint extending proximally and superior just anterior to the fibular. The incision was continued deep down through the subcutaneous tissues using sharp and blunt dissection. All bleeders were cauterized as necessary. At this point, the dissection was continued down to the superficial fascial layer where the a cystic well encapsulated mass was visualized, the mass was extruding viscous clear jelly like material. The stalk was noted to be arising from the tibiofibular joint. The entire mass was excised and sent for gross and histopathology. I used electrocautery to cauterize the stalk at the anterior tibiofibular joint where the mass appeared to be originating from. No remnants of the cyst were noted, I did protect the neurovascular structures. The operative site was flushed with copious amount of sterile saline. Finally, the subcutaneous structures were reapproximated with 4-0 Vicryl. Next, the skin was reapproximated and coapted utilizing 4-0 Monocryl in running subcuticular suture fashion technique. Upon completion of the procedure, the incision was dressed with Steri-Strips, Adaptic, 4x4s, Kerlix, and Coban. The pneumatic ankle tourniquet was then deflated and a prompt hyperemic response was noted to all digits of the foot. A CAM walker boot was then applied to the affected lower extremity. It is important to note that Dr. Delgado was present throughout the procedure. The patient did very well with the procedure and the anesthesia. The patient was transferred to the recovery room with vital signs stable and vascular status intact to all toes of the foot. Following a period of postoperative monitoring, the patient will be discharged home on the following written and oral postoperative instructions: 1. Keep the dressing clean, dry, and intact. 2. The patient to be protected weight bearing with a surgical shoe. 3. The patient should ice and elevate the affected foot when at rest. 4. The patient should contact Dr. Delgado for all postop care and if any problems should arise. The patient will follow up in one week for the post op visit. 5. Prescriptions were written for Percocet 5/325, dispensed 40 to be taken 1 p.o. q.4-6 hours as needed for severe pain. Furthermore, the patient should take Aspirin 325 once daily for two weeks to prevent DVT. Implants None Estimated Blood Loss 1 Packing No Pathology Yes Complications No immediate complications Condition Stable Disposition Same day
[2024-07-31 10:35] VITALS: BP 140/76; PULSE 108; RESP 12; O2SAT 100
[2024-07-31 11:00] VITALS: BP 131/75; PULSE 89; RESP 14; O2SAT 100
[2024-07-31 11:30] VITALS: BP 127/81; PULSE 83; RESP 14
--- NOTE | 2024-07-31 11:53 | SUR.PHASEII ---
PATIENT STATES THAT DR. RUCKER PRESCRIBED VICODIN FOR HOME USE AND NOT PERCOCET DUE TO ALLERGY.
[2024-07-31 12:00] VITALS: BP 113/68; PULSE 78; RESP 14
== END 2024-07-31 12:26 | disposition home or self-care (01) ==
PROVIDERS: PCP Family Medicine; Visit Provider Podiatrist Foot & Ankle Surgery
PROC: (CPT 27630; principal; 2024-07-31 09:30)
DX: M67.471 Ganglion, right ankle and foot (principal); R29.818 Other symptoms and signs involving the nervous system; Z79.51 Long term (current) use of inhaled steroids; Z98.890 Other specified postprocedural states; Z82.49 Family history of ischemic heart disease and other diseases of the circulatory system
CPT/HCPCS: 27630; 88305; J0690; J1100; J2003; J2250; J2405; J2704; J3010; J7120